=== PATIENT | male | born 1960 | race Caucasian/White ===

== ENCOUNTER 2017-01-18 19:33 | Inpatient (IN) | payer OTHER ==
[~2017-01-18] VITALS: Ht 172.7 cm; Wt 89.9 kg
[2017-01-18 21:30] VITALS: BP 163/99; PULSE 87; TEMP 37.2; O2SAT 90; Ht 172.7 cm; Wt 89.9 kg
[2017-01-18] MEDS ORDERED: ACETAMINOPHEN 325 MG TAB PO PRN (22:00)
[2017-01-18] MEDS ORDERED: ONDANSETRON INJ 2 MG/ML 2 ML VIAL IV PRN (22:00)
[2017-01-18] MEDS: NSS + 20MEQ KCL 1000ML 1,000 ML IV SCH (22:38)
[2017-01-18] MEDS ORDERED: NTRGSL/4 UT (22:46)
[2017-01-18] MEDS ORDERED: MOML PO (22:46)
[2017-01-18] MEDS ORDERED: SODI1ENE RE (22:46)
[2017-01-18] MEDS ORDERED: BISA-16 RE (22:46)
[2017-01-18] MEDS ORDERED: LORA-741 PO (22:46)
[2017-01-18] MEDS ORDERED: TRAZ50TA35 PO ×2 (22:46→22:59)
[2017-01-18] MEDS ORDERED: METO25TA56 PO (22:59)
[2017-01-18] MEDS ORDERED: CLON0.2T PO (22:59)
[2017-01-18] MEDS ORDERED: LEVE500T13 PO (22:59)
[2017-01-18] MEDS ORDERED: MELA1TAB5 PO (22:59)
[2017-01-18] MEDS ORDERED: CHOL1000 PO (22:59)
[2017-01-18] MEDS ORDERED: VNTHFA/IN INH (22:59)
[2017-01-18] MEDS ORDERED: DILT-115 PO (22:59)
[2017-01-18] MEDS ORDERED: LEVO1TAB33 PO (22:59)
[2017-01-18] MEDS ORDERED: DLN100 PO (22:59)
[2017-01-18] MEDS ORDERED: OXYC-57 PO ×2 (22:59)
[2017-01-18] MEDS ORDERED: ZONI100C39 PO (22:59)
[2017-01-18] MEDS ORDERED: NAPR1TAB9 PO (22:59)
[2017-01-18] MEDS ORDERED: GABA-113 PO (22:59)
[2017-01-18] MEDS ORDERED: CITA20TA9 PO (22:59)
[2017-01-18] MEDS ORDERED: DOCU-94 PO (22:59)
[2017-01-18 23:00] VITALS: BP 175/95; PULSE 103; TEMP 37.1; O2SAT 93
[2017-01-18] MEDS ORDERED: ARIP20TA4 PO (23:05)
[2017-01-18] MEDS ORDERED: ASPI81TA28 PO (23:05)
[2017-01-18] MEDS ORDERED: PRLSR20 PO (23:05)
[2017-01-18] MEDS ORDERED: CYNI1000 IM (23:05)
[2017-01-18] MEDS ORDERED: FNTTP50 TD (23:05)
[2017-01-18] MEDS ORDERED: LORAZEPAM 0.5 MG TAB PO PRN (23:15)
[2017-01-18] MEDS ORDERED: TRAZODONE HCL 50 MG TAB PO PRN (23:15)
[2017-01-18] MEDS ORDERED: NITROGLYCERIN 0.4 MG SL PER TAB CHARGE UT SCH (23:15)
[2017-01-18] MEDS ORDERED: OXYCODONE/ACETAMINOPHEN 5-325 TAB PO PRN (23:15)
[2017-01-18] MEDS ORDERED: PHN/100 PO (23:33)
[2017-01-18] MEDS ORDERED: DILT240C57 PO (23:33)
[2017-01-18] MEDS ORDERED: ARIP2TAB3 PO (23:33)
[2017-01-18] MEDS ORDERED: CITA10TA8 PO (23:33)
--- NOTE | 2017-01-18 23:47 | HISTORY & PHYSICAL EXAMINATION ---
DATE OF ADMISSION: 01/18/2017 PRIMARY CARE PHYSICIAN: Dr. Vee Washington from [place]. CHIEF COMPLAINT: Decreased food intake, weakness with chest pain 2 days ago and increased troponin found today. HISTORY OF PRESENT COMPLAINT: He is a 56-year-old male with significant past medical history including seizure disorder, history of multiinfarct dementia and almost bedbound, diabetes, depression with chronic back pain.He resides in [facility] [place]. The history was taken from the daughter and to some extent from the patient himself. Two weeks ago, the patient has had speech garbled and that has been worsening. He was noted to have decreased saturation with shortness of breath and chest x-ray did show pneumonia about 1 week ago, and he has been on Levaquin for the pneumonia. For the last 1 or 2 days, he has been declining food and also complained of some chest pain about 2 days ago, and at the same time, he was noted to have more shortness of breath and his pulse ox went down as well, but that came up to normal with oxygen administration. This morning, he was not eating at all and looked very lethargic from that point. The daughter was called and she advised the patient should be transferred to [facility]. At [place] [facility], he was hemodynamically stable. Apparent test including chest x-ray, CT scan, blood test and EKG came out to be fairly unremarkable, but he was noted to have a very high level of troponin of more than 3. From that point, the ER physician did talk to the organic extractions technician transportation driver at [facility] and advised to be transferred to [facility] for continuation of care. The patient can communicate in a very limited way. He denies to have any chest pain, shortness of breath, palpitation in the telemetry unit. He does not have any abdominal pain, nausea or vomiting. He did not have any cough or phlegm or shortness of breath, and he does have dysarthria which has been worsening, but did not have any numbness or tingling involving any of the extremities. PAST MEDICAL HISTORY: Significant for multiinfarct dementia, history of duodenal ulcer with bleeding, chronic kidney disease, ambulatory dysfunction secondary to multiinfarct, epilepsy, hypertension, depression, type 2 diabetes, dysarthria following cerebrovascular disease and low back pain. PAST SURGICAL HISTORY: Significant for benign brain tumor removal in [place] in 2007 which was complicated by postoperative multiinfarct stroke and also back surgery. FAMILY HISTORY: Father and mother had ischemic heart disease and brother has diabetes. SOCIAL HISTORY: He is . He has been living in [facility] for the last 2 years. He does not smoke, but chews tobacco. He never used any alcohol. His activities of daily living is limited. He needs help with daily activities. He uses a wheelchair to move around. He needs assistance in feeding, but he can eat regular food without any problem with swallowing. ALLERGIES: Nothing noted in the chart. MEDICATIONS: In the care home, he was on nitroglycerin as directed, albuterol via nebulized solution every 4 hours as needed, bisacodyl as directed, levofloxacin 500 mg daily, melatonin 3 mg at night, docusate 100 mg daily, phenytoin 100 mg 3 times daily, trazodone 25 mg 3 times daily, gabapentin 600 mg 3 times daily, Zonisamide 100 mg twice daily, citalopram 30 mg daily, clonidine 0.2 mg twice daily, naproxen 800 mg 3 times daily as needed, acetaminophen/oxycodone 325/5 one tablet 3 times daily as needed, omeprazole 20 mg daily, cyanocobalamin 1000 mg monthly injection, magnesium hydroxide 30 mL as needed for constipation, donepezil 10 mg at night, lorazepam 0.5 mg at bedtime, diltiazem CD 240 mg daily, metoprolol 25 mg twice daily, cholecalciferol 5000 units daily, levetiracetam 500 mg 2 tablets twice daily, bupropion 100 mg twice daily, aripiprazole 2 mg tablet daily, aspirin 81 mg daily, Fentanyl 50 mcg patch every 3 days. REVIEW OF SYSTEMS: Not obtainable. PHYSICAL EXAMINATION: GENERAL: On examination in the telemetry unit, he is not having any acute distress. VITAL SIGNS: Temperature 37.2, pulse was 87, blood pressure 163/99, saturations 90% on 2 liters nasal cannula. HEENT: Unremarkable. NECK: Supple. No JVD, no bruit. CHEST: Clear to auscultate bilaterally. HEART: S1, S2 regular with a 2/6 systolic murmur over precordium. ABDOMEN: Soft, benign, nontender, no organomegaly. Bowel sounds present. EXTREMITIES: No edema. MUSCULOSKELETAL: No acute arthritis. CENTRAL NERVOUS SYSTEM: He was alert and awake and dysarthric, poor in communication. He does have weakness in all 4 limbs, more on the right side than the left. Difficult to get any sensory impairment. LABORATORY DATA: Noted from [facility]; EKG was in sinus rhythm, rate of 83 per minute, normal axis and no significant ST-T wave changes. Chest x-ray mild cardiomegaly, but no other significant finding. CT of the head did show extensive bilateral encephalomalacia and chronic changes but nothing acute. CBC: White count was 6.04, H&H 10.9/33.8, platelet was 133. Electrolytes: Sodium 143, potassium 4.4, chloride 108, carbon dioxide 26, BUN was 36 with creatinine of 1.64, calcium 8.9, alkaline phosphatase 132. AST, ALT 30 and 39. Troponin I was 3.490. PT, INR, PTT could not be found. UA examination unremarkable. IMPRESSION AND PLAN: 1. Very high troponin. The patient has had chest pain about 2 days ago. Does not have any EKG changes, and he is not having any acute symptoms at this time. The patient received aspirin and Plavix. We will not start any heparin as of now. We will get serial cardiac enzymes and echocardiogram and cardiology evaluation in the morning for further management. 2. Multi-infarct dementia. The condition remains stable at this time. Continue with his chronic medication.Will need PT/OT 3. History of multiple strokes. He has been almost bedbound. No acute findings on CAT scan during this admission. We will continue to monitor the patient and get PT, OT evaluation while in the hospital. 4. Seizure disorder secondary to brain surgery and multiple infarct, has been on anti-seizure medication. We will continue with those while in the hospital and get the levels in the morning. 5. Diabetes type 2. Seems to be diet controlled. We will put him on diabetic diet and put him on sliding scale coverage while in the hospital. 6. Depression and anxiety. Has been on multiple medications. We will continue with those. 7. Chronic back pain status post back surgery in the past. He has been on oxycodone and Fentanyl. We will limit the doses and continue with Fentanyl right now and holding oxycodone for the time being. 8. Gastrointestinal prophylaxis with Protonix. 9. Deep venous thrombosis prophylaxis with subcutaneous heparin. 10. Code status. Discussed with the POA, the daughter. He will be a DNR. In my clinical assessment, the beneficiary meets criteria as per CMS for 2 midnight stay in the hospital. ELAN
[2017-01-18] MEDS ORDERED: LORAZEPAM 0.5 MG TAB ONE (23:56)
[2017-01-19] VITALS (12 sets, daily range): BP systolic 121–164; BP diastolic 80–98; PULSE 83–114; TEMP 37.2–37.6; O2SAT 83–98
[2017-01-19] MEDS ORDERED: ALBUTEROL HFA 8 GM INHALER INH SCH
[2017-01-19] MEDS ORDERED: ALBINS/ INH ×2 (00:06)
[2017-01-19] MEDS: CHECK FENTANYL PATCH PLACEMENT SCH ×3 (00:06→16:00)
[2017-01-19] MEDS ORDERED: LORAZEPAM 2 MG/ML 1 ML VIAL IV STA (00:24)
[2017-01-19] MEDS: FENTANYL PATCH REMOVE & WASTE SCH (00:41)
[2017-01-19] MEDS: FENTANYL 50 MCG/HR TDSY TD SCH (00:41)
[2017-01-19] MEDS: HEPARIN SOD 5000 UNIT/0.5 ML CARP SQ SCH ×3 (00:43→17:54)
[2017-01-19] MEDS ORDERED: METRONIDAZOLE / NSS 500 MG in PREMIXED NSS 100 ML IV STA (01:18)
[2017-01-19 03:59] LABS: HEMATOCRIT 33.9 % (42-52); MEAN CELL VOLUME 84.1 fL (80-100); MEAN CORPUSCULAR HEMOGLOBIN 27.3 pg (25-34); MEAN CORPUSCULAR HGB CONC 32.4 g/dl (32-36); MEAN PLATELET VOLUME 11.1 fL (7.4-10.4); PLATELET COUNT 144 K/uL (130-400); RED BLOOD COUNT 4.03 M/uL (4.7-6.1); WHITE BLOOD COUNT 11.29 K/uL (4.8-10.8)
[2017-01-19 04:25] LABS: CKMB/CK RATIO 3.1 (0-3.0)
[2017-01-19 04:31] LABS: INR 1.1 (0.9-1.1); PARTIAL THROMBOPLASTIN RATIO 2.1; PROTHROMBIN TIME (PATIENT) 11.4 SECONDS (9.0-12.0)
[2017-01-19] MEDS: GABAPENTIN 300 MG CAP PO SCH ×3 (06:22→21:33)
[2017-01-19] MEDS: PHENYTOIN SODIUM ER 100 MG CAP PO SCH ×3 (06:22→21:33)
[2017-01-19] MEDS: TRAZODONE HCL 50 MG TAB PO SCH ×3 (06:23→21:34)
--- NOTE | 2017-01-19 06:49 | Clinical Documentation Query ---
Dr. SILVA LISS : CLINICAL DOCUMENTATION QUERIES QUERY 1 OF 3 Patient is a 56 year old male admitted for evaluation of decreased food intake, weakness, chest pain 2 days prior, and troponinemia. Serum troponin on admission 3.110 ng/ml. EKG demonstrated ST. He is being treated with ASA and Lopressor, monitored on telemetry, with echocardiogram and cardiology consultation pending. Documentation includes "very high troponin". As stated, this is not amenable to coding. As appropriate, consider clarification as suggested below. In your clinical opinion is this patient being managed for: ( ) (Possible/Suspected) Non-ST elevation (NSTEMI) myocardial infarction ( ) Other explanation of clinical findings (Please Explain) ( ) Unable to determine (Please Define) ( ) Need to Discuss ( x ) Not Agree NONSPECIFIC ELEVATION OF TROPONIN, CAUSE UNCERTAIN The medical record reflects the following clinical findings, treatment, and risk factors. Clinical Indicators: As above Treatment: He is being treated with ASA and Lopressor, monitored on telemetry, with echocardiogram and cardiology consultation pending. Risk Factors: Age, DM, hypertension, inactivity, gender QUERY 2 OF 3 H&P notes that patient has been on Levaquin for pneumonia for approximately the past week. He was reportedly SOB and hypoxemic prior to presentation. He's currently being treated with Ciprofloxacin for an unspecified infectious process. As appropriate, consider documentation as suggested below in order to capture the acuity of this diagnosis. Thank you. In your clinical opinion is this patient being managed for: ( X ) Pneumonia (POSSIBLE) ( ) Other bacterial infection, specified ( ) Other explanation of clinical findings (Please Explain) ( ) Unable to determine (Please Define) ( ) Need to Discuss ( ) Not Agree The medical record reflects the following clinical findings, treatment, and risk factors. Clinical Indicators: As above Treatment:Ciprofloxacin Risk Factors: Bed bound status, multiinfarct dementia QUERY 3 OF 3 Documentation includes CKD, not otherwise specified. Estimated GFR unavailable to this reader. As able, please specify the appropriate stage of CKD in your patient. Thank you. In your clinical opinion is this patient being managed for: ( ) Chronic kidney disease, stage __ ( ) Other explanation of clinical findings (Please Explain) ( x ) Unable to determine (Please Define) DATA NOT AVAILABLE ( ) Need to Discuss ( ) Not Agree The medical record reflects the following clinical findings, treatment, and risk factors. Clinical Indicators: As above Treatment: Serial chemistries Risk Factors: Age, hypertension, DM, medications. Please clarify and document your clinical opinion in the progress notes and discharge summary. Terms such as "probable", "suspected", "likely", "questionable", "possible", or "still to be ruled out" are acceptable. IF IN AGREEMENT, YOU MUST DOCUMENT ABOVE DIAGNOSTIC STATEMENT IN DAILY PROGRESS NOTES AND DISCHARGE SUMMARY. This document is not part of the patient's record. Thank You, Edmond Bustos, RN [phone]
[2017-01-19] MEDS: ASPIRIN 81 MG ECTAB PO SCH (07:53)
[2017-01-19] MEDS: CHOLECALCIFEROL 1000 INTER.UNIT TAB PO SCH (07:54)
[2017-01-19] MEDS: ZONISAMIDE 100 MG CAP PO SCH ×2 (07:54→21:34)
[2017-01-19] MEDS: CLONIDINE HCL 0.1 MG TAB PO SCH ×2 (07:55→21:34)
[2017-01-19] MEDS: ARIPIprazole 1 MG/ML ORAL SOLN 150 ML BTL PO SCH (07:55)
[2017-01-19] MEDS: LEVETIRACETAM 500 MG TAB PO SCH ×2 (07:55→21:33)
[2017-01-19] MEDS: DILTIAZEM HCL 240 MG CAPCR PO SCH ×2 (07:56→21:33)
[2017-01-19] MEDS: CITALOPRAM 20 MG TAB PO SCH (07:57)
[2017-01-19] MEDS ORDERED: METRONIDAZOLE / NSS 500 MG in PREMIXED NSS 100 ML IV SCH (08:00)
[2017-01-19] MEDS ORDERED: BISACODYL 5 MG TABEC PO PRN (09:00)
[2017-01-19] MEDS ORDERED: CIPROFLOXACIN / D5W 400 MG in PREMIXED IN D5W 200 ML IV SCH (09:00)
[2017-01-19] MEDS ORDERED: METOPROLOL TARTRATE 25 MG TAB PO SCH (09:00)
[2017-01-19] MEDS ORDERED: CHOLECALCIFEROL 1000 INTER.UNIT TAB PO SCH (09:00)
[2017-01-19] MEDS ORDERED: ARIPIprazole TAB 10 MG TAB PO SCH (09:00)
[2017-01-19] MEDS ORDERED: MAGNESIUM HYDROXIDE SUSP 30 ML UDC PO PRN (09:00)
[2017-01-19] MEDS ORDERED: SOD PHOSPHATE/SOD BIPHOSPHATE ENEMA 132 ML BTL PR PRN (09:00)
--- NOTE | 2017-01-19 09:26 | ECHOCARDIOGRAM REPORT ---
*NOTICE TO RECEIVING LIBERTARIAN AGENCY This information is strictly Confidential and protected under [place] law. [place] law prohibits you from making any further disclosure of this information unless further disclosure is expressly permitted by the written consent of the person to whom it pertains or is authorized by law. A general authorization for the release of medical or other information is not sufficient for this purpose. Hospital accepts no responsibility if the information is made available to any other person, INCLUDING THE PATIENT. Interpretation Summary * Patient very agitated and thrashing, trying to get out of bed, yelling and IV did not work for Definity * Name: CLAUDE SANTANA Study Date: 01/19/2017 06:22 AM BP: 164/98 mmHg * Patient Location: [facility]\S\S230\S\1 HR: 110 * : 1960 (M/d/yyyy) Gender: Male Height: 68 in * Age: 56 yrs Ethnicity: CA Weight: 202 lb * Ordering Physician: Meet Calixto * Referring Physician: YUE * Performed By: Elizabeth Dhillon RDCS * * Reason For Study: CHEST PAIN * BSA: 2.1 m2 * The study was technically adequate. * -- Conclusions -- * Sinus tachycardia was present during the echocardiogram study. * No regional wall motion abnormalities noted. * Left ventricular systolic function is normal. * Ejection Fraction = 55-60%. * There is mild concentric left ventricular hypertrophy. * The left atrium is mildly dilated. * There is mild mitral annular calcification. * There is mild mitral regurgitation. * Significant tricuspid regurgitation is absent. * Doppler findings do not suggest pulmonary hypertension. Procedure Details * A complete two-dimensional transthoracic echocardiogram was performed (2D, M-mode, Doppler and color flow Doppler). Left Ventricle * The left ventricle is normal in size. * There is no LV mural thrombus. * There is mild concentric left ventricular hypertrophy. * Ejection Fraction = 55-60%. * Left ventricular systolic function is normal. * The left ventricular wall motion is normal. * No regional wall motion abnormalities noted. Right Ventricle * The right ventricle is normal size. * The right ventricular systolic function is normal as assessed by tricuspid annular plane systolic excursion (TAPSE) (normal >1.5 cm). Atria * The left atrium is mildly dilated. * Right atrial size is normal. * There is no evidence of atrial septal defect, but resolution does not allow assessment for a patent foramen ovale. Mitral Valve * There is mild mitral annular calcification. * There is no mitral valve stenosis. * There is mild mitral regurgitation. Tricuspid Valve * The tricuspid valve is normal. * There is no tricuspid stenosis. * Significant tricuspid regurgitation is absent. * Doppler findings do not suggest pulmonary hypertension. Aortic Valve * The aortic valve is not well visualized. * The Doppler evaluation is technically adequate. * Aortic stenosis is absent. * There is no significant aortic regurgitation. Pulmonic Valve * The pulmonary valve is not well seen, but the Doppler examination is normal without significant regurgitation or stenosis. Great Vessels * The aortic root and proximal ascending aorta are normal sized. Pericardium/Pleural * There is no pericardial effusion. Great Vessels * Normal inferior vena cava diameter and respiratory variation suggests normal central venous pressure. Left Ventricular Diastolic Function * Grade I diastolic dysfunction, (abnormal relaxation pattern). MMode 2D Measurements and Calculations IVSd 1.3 cm IVSs 2.3 cm LVIDd 6.6 cm LVIDs 4.4 cm LVPWd 1.2 cm LVPWs 1.4 cm IVS/LVPW 1.0 FS 33.7 % EDV(Teich) 223.2 ml ESV(Teich) 86.3 ml EF(Teich) 61.4 % EDV(cubed) 286.8 ml ESV(cubed) 83.4 ml EF(cubed) 70.9 % % IVS thick 87.2 % % LVPW thick 11.9 % LV mass(C)d 381.7 grams LV mass(C)dI 185.9 grams/m\S\2 LV mass(C)s 369.9 grams LV mass(C)sI 180.2 grams/m\S\2 SV(Teich) 136.9 ml SI(Teich) 66.7 ml/m\S\2 SV(cubed) 203.4 ml SI(cubed) 99.1 ml/m\S\2 Ao root diam 3.8 cm Ao root area 11.2 cm\S\2 LA dimension 4.8 cm LA/Ao 1.3 LVAd ap4 46.8 cm\S\2 LVLd ap4 9.9 cm EDV(MOD-sp4) 182.0 ml LVAs ap4 27.4 cm\S\2 LVLs ap4 8.2 cm ESV(MOD-sp4) 78.8 ml EF(MOD-sp4) 56.7 % LVAd ap2 45.4 cm\S\2 LVLd ap2 10.0 cm EDV(MOD-sp2) 176.0 ml LVAs ap2 24.4 cm\S\2 LVLs ap2 7.9 cm ESV(MOD-sp2) 66.8 ml EF(MOD-sp2) 62.0 % SV(MOD-sp4) 103.2 ml SI(MOD-sp4) 50.3 ml/m\S\2 SV(MOD-sp2) 109.2 ml SI(MOD-sp2) 53.2 ml/m\S\2 Doppler Measurements and Calculations Ao V2 max 196.2 cm/sec Ao max PG 15.4 mmHg Ao max PG (full) 10.1 mmHg LV V1 max PG 5.3 mmHg LV V1 max 115.0 cm/sec TR max geno 323.9 cm/sec
--- NOTE | 2017-01-19 11:02 | Cardiology Consultation ---
Cardiology Consultation Date of Consultation: Jan 19, 2017 History of Present Illness Patient is a 56 year old male seen in cardiology consultation per the request of Dr. Calixto for evaluation of elevated troponin level. The patient has not previously been admitted to this institution, his history is obtained based on my conversation with the referring emergency room physician last evening and from review of his emergency department and limited [facility] records as the patient is unable to provide helpful history. The patient apparently resides in a senior care setting history of multi- infarct dementia and has cognitive impairment. The senior care staff had noted generalized symptoms of failure to thrive recently with decreased food intake, generalized weakness, and therefore he was referred to the emergency department at [facility]. On arrival there he was noted to have a mild sinus tachycardia. He had no complaints and continues to deny any pains including no chest pain. In evaluation took place included a CT scan that per the outside radiology report revealed areas of chronic bilateral encephalomalacia consistent with history of past strokes, no acute findings. Chest x-ray suggested interstitial edema but no focal infiltrate. It is noted that the patient had recently been receiving outpatient antibiotics at the senior care for presumed pneumonia. On blood work performed in the emergency room his found to have an elevated troponin of 3 MG per mL. EKG revealed sinus rhythm with no significant ST changes. He was received here by [facility] for transfer to a higher level of care for cardiology consultation because that was not available at [facility]. He has since had a repeat troponin that was mildly elevated at 3.49 MG per mL. Telemetry reveals sinus rhythm and mild sinus tachycardia in the 110-120 beat per minute range. An echocardiogram was performed today, study was technically adequate although the images were difficult to obtain because the patient was restless and combative with the avionics technician. Sinus tachycardia in the 110-120 beat per minute range was noted during the test. The left ventricular wall motion was normal with no regional wall motion abnormalities. The left ventricular ejection fraction was normal with a qualitative ejection fraction of 55-60%. Mild concentric left ventricular hypertrophy was noted with mild mitral annular calcification, mild mitral regurgitation, and mild left atrial enlargement. There are no prior echocardiograms available for review. EKG performed on 01/19/2017 at 2:06 AM on arrival to the telemetry floor at this institution revealed sinus tachycardia [address] abnormality and no definite signs of ischemia. EKG was unchanged compared to that reviewed from the emergency room records. History Past Medical History: 1. Seizure disorder 2. History of multi-infarct dementia with cognitive impairment, requires [facility] care, and is mostly bedbound 3. History of duodenal ulcer with bleeding 4. History of chronic kidney disease 5. Inventory dysfunction 6. Hypertension 7. Type 2 diabetes mellitus Past Surgical History: Per chart review surgical history is relevant for removal of a benign brain tumor in [place] in 2007 was contacted by postoperative stroke Social History: Patient is He lives at the [facility] Family History: Review Of Systems Echo (review of systems is unobtainable due to the patient's poor baseline mental status Allergies Coded Allergies: Morphine (Unverified Allergy, Unknown, UNKOWN , 01/18/17) UNABLE TO INTERVIEW PT, INFORMATION FROM [facility] Medications Reported Home Medications Medications Dose Route/Sig Max Daily Dose Days Date Category Dose Instructions Proventil 0.083% 2.5MG/3ML (Albuterol Sulf) 2.5 Mg/3 Ml Nebu 2.5 Mg INH UD 01/19/17 Reported Proventil 0.083% 2.5MG/3ML (Albuterol Sulf) 2.5 Mg/3 Ml Nebu 2.5 Mg INH Q4 01/19/17 Reported Abilify (Aripiprazole) 2 Mg Tab 2 Mg PO DAILY 01/18/17 Reported Cardizem Cd (Diltiazem Hcl Coated Beads) 240 Mg Cap 240 Mg PO BID 01/18/17 Reported Celexa (Citalopram Hydrobromide) 10 Mg Tab 30 Mg PO QAM 01/18/17 Reported Dilantin (Phenytoin Sodium) 100 Mg Cap 100 Mg PO TID 01/18/17 Reported Duragesic (Fentanyl) 50 Mcg Tdsy 50 Mcg TD [id number] 01/18/17 Reported Aspirin Ec (Aspirin) 81 Mg Tab 81 Mg PO DAILY 01/18/17 Reported Prilosec (Omeprazole) 20 Mg Capcr 20 Mg PO PM 01/18/17 Reported Cyanocobalamin 1,000 Mcg/Ml Inj 1,000 Mcg IM MONTHLY 01/18/17 Reported Aleve (Naproxen) 220 Mg Tab 800 Mg PO TID 01/18/17 Reported Percocet 5MG/325MG (Oxycodone/Acetaminophen) Tab 1 Tablet PO TID PRN 01/18/17 Reported PAIN Keppra (Levetiracetam) 500 Mg Tab 500 Mg PO BID 01/18/17 Reported Catapres (Clonidine Hcl) 0.2 Mg Tab 0.2 Mg PO Q12 01/18/17 Reported Vitamin D3 (Cholecalciferol) 1,000 Unit Tab 5,000 Unit PO QAM 90 01/18/17 Reported Colace (Docusate Sodium) 100 Mg Cap 1 Cap PO HS 15 01/18/17 Reported Trazodone (Trazodone HCl) 50 Mg Tab 25 Mg PO Q8 01/18/17 Reported Neurontin (Gabapentin) 300 Mg Cap 600 Mg PO Q8 01/18/17 Reported Zonegran (Zonisamide) 100 Mg Cap 100 Mg PO BID 01/18/17 Reported Lopressor (Metoprolol Tartrate) 25 Mg Tab 25 Mg PO Q12 01/18/17 Reported Levaquin (Levofloxacin) 500 Mg Tab 500 Mg PO DAILY 10 01/18/17 Reported Kp Melatonin (Melatonin) 3 Mg Tab 1 Tab PO HS 30 01/18/17 Reported Ativan (Lorazepam) 0.5 Mg Tab 0.25 Mg PO HS PRN 01/18/17 Reported Fleet Enema Six Pack (Sodium Phosphates) 1 Shanna Shanna 1 Dose RE UD 01/18/17 Reported ONE DOSE RECTALLY NEEDED NO RESULTS ON 3RD SHIFT EXCEPT FOR A DIALYSIS RESIDENT OF RESIDENT WITH ESRD Dulcolax (Bisacodyl) 5 Mg Tab 10 Mg RE UD 1 01/18/17 Reported INSERT SUPPOSITORY RECTALLY, NO RESULTS ON 2ND SHIFT Milk Of Magnesia (Magnesium Hydroxide) 30 Ml Susp 30 Ml PO DAILY 01/18/17 Reported TAKE 30ML BY MOUTH 1ST SHIFT IF NO RESULTS EXCEPT FOR A DIALYSIS RESIDENT OR RESIDENT WITH ESRD Nitrostat (Nitroglycerin) 0.4 Mg Tab 0.4 Mg UT PRN 01/18/17 Reported TAKE 0.4MG SL PRN FOR CHEST PAIN, ONE TABLET EVERY FIVE MINUTES FOR THREE DOSES IF INEFFECTIVE FOR CHEST PAIN, CALL MD Physical Exam Vital Signs (Last 8hrs): Last 8 Hrs Date Time Temp Pulse Resp B/P (MAP) Pulse Ox O2 Delivery O2 Flow Rate FiO2 01/19/17 08:00 Nasal Cannula 3.0 01/19/17 04:00 Nasal Cannula 3.0 01/19/17 03:44 37.6 110 23 164/98 (120) 91 Nasal Cannula 3.0 General Appearance: Awake, unable to determine if the patient's oriented to place, minimally conversant Head: Normocephalic Atraumatic. Eyes: PERRLA, EOMI, conjunctiva and sclera clear Neck: Supple. No carotid bruits noted. No JVD. No HJD. Respiratory: Breath sounds clear to auscultation bilaterally. No w/r/r. Cardiovascular: Reg rate and rhythm. S1 and S2 noted. No murmurs, rubs, gallops. PMI non displace. Abdomen: Normal bowel sounds, soft nontender. no abdominal bruits. Extremities: No edema, no clubbing or cyanosis. distal pulses 2/4 bilaterally. . Data Last Resulted 01/19/17 03:39 Past 24 Hours Test 01/19/17 03:39 01/19/17 10:04 Range/Units Creatine Kinase MB 2.7 0.5-3.6 ng/ml Creatine Kinase MB Ratio 3.1 H 0-3.0 Prothromb Time International Ratio 1.1 0.9-1.1 Prothrombin Time 11.4 9.0-12.0 SECONDS Total Creatine Kinase 87 39-308 U/L Troponin I 3.110 *H 0-0.045 ng/ml Chest x-ray, CT, and echocardiogram results are summarized in history of present illness Assessment & Plan Impression: 56-year-old male with recent symptoms of failure to thrive, his baseline cognitive impairment and has had a apparent subacute worsening over the last 2 weeks and then worse over the last 3 days, he was treated with Levaquin a week ago for pneumonia, and emergency department evaluation yesterday was found to have a mildly elevated troponin I. Recommendations: His cardiac evaluation is relatively normal with the exception of mild sinus tachycardia. His blood pressure is elevated most recent reading of 164/98. It appears he is on low-dose aspirin at baseline as well as metoprolol tartrate 25 mg twice a day. Clopidogrel was added in the emergency department yesterday. He does have an apparent history of gastrointestinal bleed in the past. Other relevant outpatient cardiac medications include diltiazem 240 mg by mouth twice a day, and clonidine so I would assume he does have underlying significant hypertension. He is not on a statin apparently at baseline despite his stroke history. I do not have a good history of what the underlying etiology for strokes was. Echocardiogram reveals no regional wall motion abnormalities suggestive of recent infarct, and he is no evidence of cardiomyopathy. At this point, his troponin is definitely a marker of myocardial necrosis, but I do not have definite evidence that this is due to an acute coronary thrombosis. The patient provides no history to suggest anginal symptoms. At this time, I recommend continued conservative therapy. Aspirin and clopidogrel will be continued, which very well may be indicated from a neurologic standpoint given his history of strokes in the past also. I'm going to increase his metoprolol dose to 50 mg twice a day. I recommend adding atorvastatin. Continue prior to hospital dose of diltiazem and clonidine. Given the patient's difficulty from a mental status standpoint, he had trouble tolerating staying still long enough just to have the transthoracic echocardiogram done, I do not think he is a candidate for invasive cardiac catheterization, but I think it is indicated in his case. I have attempted to call his power of personal injury attorney is his daughter, Dalila by telephone but was not able to connect with her, I will hopefully connect with her when she rests the hospital today. Manuel Watson DO, FACC, FACOI Associate Zipper Sewing Machine Operator [facility] [place]
[2017-01-19] MEDS ORDERED: ATORVASTATIN 20 MG TAB PO ONE (11:03)
[2017-01-19] MEDS ORDERED: METOPROLOL TARTRATE 25 MG TAB PO ONE (11:15)
[2017-01-19 11:18] LABS: CKMB/CK RATIO 3.1 (0-3.0)
[2017-01-19] MEDS: CLOPIDOGREL BISULFATE 75 MG TAB PO SCH (11:37)
[2017-01-19] MEDS: NSS + 20MEQ KCL 1000ML 1,000 ML IV SCH (11:38)
[2017-01-19] MEDS ORDERED: LORAZEPAM 2 MG/ML 1 ML VIAL ONE (12:55)
[2017-01-19] MEDS ORDERED: LORAZEPAM INJ 0.25 MG in SYRINGE 0.25 ML IV ONE (13:00)
[2017-01-19] MEDS ORDERED: LEVALBUTEROL/IPRATROPIUM NEB INH STA (13:07)
--- NOTE | 2017-01-19 13:11 | DIAGNOSTIC IMAGING REPORT ---
CHEST ONE VIEW PORTABLE HISTORY: hypoxia COMPARISON: None. FINDINGS: The heart is mildly enlarged. No pleural effusions. No pneumothorax. Near diffuse bilateral perihilar patchy airspace opacities. These demonstrate a predominantly perihilar location. There is mild interstitial and vascular thickening. IMPRESSION: Bilateral patchy airspace opacities with mild cardiomegaly. This favors pulmonary edema. However, pneumonia could also have a similar appearance. Electronically signed by: Sharan Rapp M.D. 01/19/2017 1:09 PM Dictated Date/Time: 01/19/2017 1:08 PM
[2017-01-19] MEDS ORDERED: LEVALBUTEROL 1.25MG/0.5ML NEB INH ONE (13:30)
[2017-01-19] MEDS ORDERED: IPRATROPIUM BROMIDE NEB SOLN 0.02% 2.5 ML VIAL INH ONE (13:30)
[2017-01-19] MEDS ORDERED: FUROSEMIDE INJ 40 MG in SYRINGE 0 ML IV ONE (14:00)
[2017-01-19 14:56] LABS: MEAN CORPUSCULAR HEMOGLOBIN 28.5 pg (25-34); MEAN PLATELET VOLUME 11.2 fL (7.4-10.4); PLATELET COUNT 161 K/uL (130-400); RED BLOOD COUNT 3.69 M/uL (4.7-6.1); WHITE BLOOD COUNT 9.27 K/uL (4.8-10.8)
[2017-01-19 15:06] LABS: MEAN CORPUSCULAR HGB CONC 33.9 g/dl (32-36)
[2017-01-19 15:11] LABS: INR 1.1 (0.9-1.1); PARTIAL THROMBOPLASTIN RATIO 2.1; PROTHROMBIN TIME (PATIENT) 11.4 SECONDS (9.0-12.0)
[2017-01-19 15:23] LABS: BUN/CREATININE RATIO 17.3 (10-20); CALCIUM 8.4 mg/dl (8.5-10.1); CKMB/CK RATIO 2.4 (0-3.0); CREATININE 1.5 mg/dl (0.60-1.40); POTASSIUM 4.2 mmol/L (3.5-5.1)
[2017-01-19] MEDS ORDERED: PIPERACILL/TAZOBAC IV 0 GM in DEXTROSE 5% 100ML 100 ML IV SCH (16:30)
[2017-01-19] MEDS ORDERED: LEVALBUTEROL/IPRATROPIUM NEB INH PRN (16:30)
[2017-01-19] MEDS ORDERED: IPRATROPIUM BROMIDE NEB SOLN 0.02% 2.5 ML VIAL INH PRN (16:45)
[2017-01-19] MEDS ORDERED: LEVALBUTEROL 0.63MG/3 ML NEB INH PRN (16:45)
[2017-01-19] MEDS ORDERED: PIPERACILL/TAZOBAC IV 3.375 GM in DEXTROSE 5% 100ML IV ONE (17:00)
[2017-01-19] MEDS ORDERED: METHYLPREDNISOLONE IV 40 MG in SYRINGE 0 ML IV ONE (17:00)
[2017-01-19] MEDS ORDERED: PIPERACILL/TAZOBAC CONSULT ACTIVE PRN (17:00)
[2017-01-19] MEDS ORDERED: LEVOFLOXACIN CONSULT ACTIVE PRN (17:00)
[2017-01-19] MEDS: IPRATROPIUM BROMIDE NEB SOLN 0.02% 2.5 ML VIAL INH SCH (18:50)
[2017-01-19] MEDS: LEVALBUTEROL 1.25MG/0.5ML NEB INH SCH (18:50)
--- NOTE | 2017-01-19 19:04 | PULMONARY CONSULTATION ---
DATE OF CONSULTATION: 01/19/2017 TIME: 6:05 p.m. HISTORY OF PRESENT ILLNESS: The patient was seen in room #204. He is a 56-year-old male who was admitted to the hospital yesterday. He has a history of multiinfarct dementia. Much of this began when he had a brain tumor surgery back in 2007, reportedly for a benign tumor. He had multiple CVAs postoperatively. The patient [place] resides [facility] [place] [place]. For the past 1 month, he has not been doing well. According to his sister, the patient's downhill course all occurred at the time of his father's 1 month ago. Since then, he has been doing poorly. Generally, his appetite has been decreased. His energy level has been decreased. His mental status has declined. The patient has a history of dysarthria, but it has gotten much worse. The patient was sent to the Emergency Room in [place] because of his complaints. He was found to have an elevated troponin level. Because of this, he was referred to [facility]. Today, the patient has had progressively increasing shortness of breath. He had a chest x-ray done today that showed diffuse bilateral patchy airspace opacities. This is compatible with either pulmonary edema or multi-lobe pneumonia. The patient has had severely decreased oxygen saturations. He did not tolerate a nonrebreather mask. He kept taking it off. He now has an OxyMask in place and he is more comfortable with it. The patient did not cough during my exam, but I am told that he coughs sometimes. His family was present. They do not believe that he has any difficulty swallowing and they do not think he has any dysphagia at all. The patient has been restless, but he is a little more restful now than he was a few hours ago. To the best of my knowledge, he has not expectorated any phlegm and he has not expectorated any blood. PAST SURGICAL HISTORY: 1. Back surgery. 2. Neurosurgery for the benign brain tumor noted above. PAST MEDICAL HISTORY: 1. Seizure disorder. 2. Multiinfarct dementia. 3. Hypertension. 4. Diabetes type 2. 5. Depression. 6. Chronic back pain. 7. Duodenal ulcer. 8. Chronic kidney disease. SOCIAL HISTORY: Tobacco - the patient has never smoked, but he has a longstanding history of chewing tobacco; ETOH - never. ALLERGIES: None known allergies. OCCUPATIONAL HISTORY: The patient was a director construction services. FAMILY HISTORY: Both mother and father had ischemic heart disease and brother has diabetes. REVIEW OF SYSTEMS: Very difficult to obtain as the patient has marked dysarthria. The review of systems is negative except as noted above in the HPI. PHYSICAL EXAMINATION: GENERAL: The patient is a 56-year-old male who appears older than his chronologic age. He could speak somewhat but with dysarthria. He did not appear in distress at present. VITAL SIGNS: Temperature recorded at 37.4, axillary. HEENT: His pupils were slightly different size. The right pupil was a bit larger than the left. They do react. The mouth exam showed he has some crowding in the pharynx. I would estimate this to be a Mallampati grade II or III. NECK: Palpation of the neck reveals no lymph nodes. I did not believe his neck veins were distended significantly. HEART: The patient's heart rate is 90 per minute. The rhythm is regular. The blood pressure most recently was 137/88. LUNGS: Lung hair reveal diffuse rales bilaterally. There were mild scattered rhonchi. Oxygen saturation was 97% on 15 liter OxyMask. Respiratory rate currently is 22 breaths per minute. It had been as high as 28 earlier today. ABDOMEN: Soft. Bowel sounds are present. There was no tenderness to palpation or masses. EXTREMITIES: Showed no cyanosis, clubbing or edema. The patient has a little bit of libido on the anterior right leg from a few inches above the knee to a few inches below the knee. The legs felt cool. However, he did have peripheral pulses which were well palpated. LABORATORY DATA: Electrolytes show sodium 140, potassium 4.2, chloride 109, bicarbonate 25. The BUN is 26 with a creatinine of 1.5. Calcium was 8.4. CPK was 101. Troponins were 2.69. BNP was 9520. Troponin earlier today was 3.11. White count is 9.27. Hemoglobin 10.5. Platelets are 161,000. PTT is prolonged at 54.4 despite only having had subQ heparin. D-dimer was 1940. IMPRESSION: 1. Acute respiratory failure with hypoxia. 2. Diffuse bilateral airspace disease - suspect congestive heart failure with an inability to exclude pneumonia. 3. Multiinfarct dementia. COMMENTS: The patient is more comfortable on the OxyMask. He is oxygenating better. The high BNP would be compatible with congestive heart failure. His echo from today did not show any significant findings; however. The possibility exists he does have a multilobar patchy pneumonia as well. Therapeutically, the patient is being treated with some IV steroids in the form of methylprednisolone 20 mg IV q. 8 hours. From an antibiotic perspective, he is on Zosyn and levofloxacin. He is also on respiratory treatments in the form of levalbuterol and ipratropium. Agree with all the above measures. The patient is a DNR and reportedly he does not want BiPAP as well. We will try to oxygenate him with the OxyMask and if is not successful, we could try high-flow nasal oxygen. Will follow the patient with you. I would suggest repeating an x-ray of the chest in the morning tomorrow. Thank you for asking me to assist in his care.
--- NOTE | 2017-01-19 19:05 | DIAGNOSTIC IMAGING REPORT ---
VENOUS DOPPLER LWR EXT BILA HISTORY: Pain. Edema. DVT COMPARISON STUDY: None. FINDINGS: There is normal compressibility, flow, and augmentation within the bilateral lower extremity deep venous systems. IMPRESSION: No DVT within the right or left lower extremity. The above report was generated using voice recognition software. It may contain grammatical, syntax or spelling errors. Electronically signed by: Shawn Chapman M.D. 01/19/2017 7:03 PM Dictated Date/Time: 01/19/2017 7:03 PM
[2017-01-19] MEDS: LEVOFLOXACIN / D5W 750 MG in PREMIXED IN D5W 150 ML IV SCH (19:25)
[2017-01-19] MEDS ORDERED: LEVALBUTEROL/IPRATROPIUM NEB INH SCH (21:00)
--- NOTE | 2017-01-19 21:18 | Progress Note ---
Medicine Progress Note Date & Time of Visit: Jan 19, 2017 at ~ 12:00 . Subjective Long-term resident at [facility]. History history of cerebrovascular disease, status post multiple infarcts with progressive decline. Has chronic dysarthria. Has become less ambulatory and is now bed and wheelchair bound. Diagnosed with pneumonia about a week ago and treated with levofloxacin. Failed to improve and noted to be progressively weaker, so evaluated ED at [facility] yesterday. Transferred to our facility due to elevated troponin. Evaluated by Cardiology this morning. Around noon today became anxious and agitated and was noted to be hypoxic with O2 sats in the low 80s wearing nasal cannula 3 L/m. Patient not able to communicate very well due to his underlying cerebrovascular disease. Denies any chest pain. No apparent aspiration. . Objective Last 8 Hrs Date Time Temp Pulse Resp B/P (MAP) Pulse Ox O2 Delivery O2 Flow Rate FiO2 01/19/17 19:10 37.4 86 16 137/80 (99) 92 Oxymask 12.0 01/19/17 18:50 83 12 94 Diffusion Mask 12.0 01/19/17 16:00 Non-Rebreather 15.0 01/19/17 15:08 37.4 90 22 137/88 (104) 97 Oxymask 15.0 01/19/17 14:40 98 28 137/88 (104) 95 Non-Rebreather 15.0 01/19/17 13:22 92 22 95 Non-Rebreather 15.0 Physical Exam: General- adult male who appears to be chronically and acutely ill Neck- + JVD Lungs- few scattered rhonchi, bibasilar rales, diffuse moderate wheezing Heart- RRR, tachy, no gallop appreciated Abdomen- normal bowel sounds, soft, nontender Extremities- trace pretibial edema Neuro- somnolent, dysarthric . Laboratory Results: Last 24 Hours Test 01/19/17 03:39 01/19/17 06:21 01/19/17 10:04 01/19/17 12:54 White Blood Count 11.29 K/uL Red Blood Count 4.03 M/uL Hemoglobin 11.0 g/dL Hematocrit 33.9 % Mean Corpuscular Volume 84.1 fL Mean Corpuscular Hemoglobin 27.3 pg Mean Corpuscular Hemoglobin Concent 32.4 g/dl RDW Standard Deviation 39.9 fL RDW Coefficient of Variation 13.2 % Platelet Count 144 K/uL Mean Platelet Volume 11.1 fL Prothrombin Time 11.4 SECONDS Prothromb Time International Ratio 1.1 Activated Partial Thromboplast Time 53.3 SECONDS Partial Thromboplastin Ratio 2.1 Total Creatine Kinase 87 U/L 97 U/L Creatine Kinase MB 2.7 ng/ml 3.0 ng/ml Creatine Kinase MB Ratio 3.1 3.1 Troponin I 3.110 ng/ml 2.590 ng/ml Bedside Glucose 124 mg/dl 147 mg/dl Test 01/19/17 14:42 White Blood Count 9.27 K/uL Red Blood Count 3.69 M/uL Hemoglobin 10.5 g/dL Hematocrit 31.0 % Mean Corpuscular Volume 84.0 fL Mean Corpuscular Hemoglobin 28.5 pg Mean Corpuscular Hemoglobin Concent 33.9 g/dl RDW Standard Deviation 40.8 fL RDW Coefficient of Variation 13.4 % Platelet Count 161 K/uL Mean Platelet Volume 11.2 fL Prothrombin Time 11.4 SECONDS Prothromb Time International Ratio 1.1 Activated Partial Thromboplast Time 54.4 SECONDS Partial Thromboplastin Ratio 2.1 D-Dimer 1940 ug/L FEU Sodium Level 140 mmol/L Potassium Level 4.2 mmol/L Chloride Level 109 mmol/L Carbon Dioxide Level 25 mmol/L Anion Gap 6.0 mmol/L Blood Urea Nitrogen 26 mg/dl Creatinine 1.50 mg/dl Est Creatinine Clear Calc Drug Dose 59.4 ml/min Estimated GFR () 59.0 Estimated GFR (Non- 50.9 BUN/Creatinine Ratio 17.3 Random Glucose 115 mg/dl Calcium Level 8.4 mg/dl Total Creatine Kinase 101 U/L Creatine Kinase MB 2.4 ng/ml Creatine Kinase MB Ratio 2.4 Troponin I 2.690 ng/ml Pro-B-Type Natriuretic Peptide 9520 pg/ml Phenytoin (Dilantin) Level 10.0 mcg/mL Diagnostic Imaging: Chest x-ray reviewed and demonstrated pulmonary edema. . Other Studies: Echocardiogram performed this morning showed normal left ventricular systolic function, no wall motion abnormalities, no RV strain. EKG performed at 12:53 reviewed and demonstrated sinus tachycardia 100/minute, LVH, slight ST depression in lateral precordial leads. . Assessment & Plan ACUTE HYPOXIC RESPIRATORY FAILURE Diagnosed with pneumonia about 1 week ago. Started on oxygen a few days ago. Now with worsening oxygenation despite supplemental oxygen. Titrate supplemental oxygen. Specific cardiopulmonary concerns discussed below. ELEVATED TROPONIN Serum troponin remains elevated around 3. Total CPK and CPK-MB normal. Denies chest pain. No wall motion abnormalities on echocardiogram. Seen in consultation by Cardiology. Consider pulmonary embolism as discussed below. PULMONARY EDEMA Chest x-ray today demonstrates pulmonary edema. Echo shows normal LVEF of 55%. IV furosemide ordered. Follow exam, chest films. POSSIBLE PNEUMONIA / POSSIBLE ASPIRATION Diagnosed with pneumonia 1 week ago and treated with levofloxacin. Chest x-ray today shows pulmonary edema, no obvious infiltrates. Treat with broad-spectrum antibiotic therapy with levofloxacin and piperacillin/ tazobactam. MUCK HAULER evaluation for swallowing aspiration risk. ELEVATED D-DIMER At risk for thromboembolic disease due to inactivity/bed rest. Venous duplex ordered by Cardiology- results pending. Serum creatinine 1.5 - 1.6. May be best to avoid CTA due to risk of contrast nephropathy. Patient will not be able to cooperate with VQ scan. Receiving SQ unfractionated heparin with therapeutic PTT. HYPERTENSION Continue metoprolol, diltiazem, clonidine. CKD Stage uncertain. Serum creatinine 1.6 @ [facility] ED day prior to admission. Creatinine today = 1.5. Follow. DM TYPE 2 Reported history of diabetes, but not on any diabetic medications at this time. Follow. CEREBROVASCULAR DISEASE Neuro status apparently at baseline. CT performed yesterday at [facility] showed encephalomalacia, no acute events. SEIZURE DISORDER Phenytoin level 10. CHRONIC PAIN Continue fentanyl patch + Percocet PRN. VTE PROPHYLAXIS SQ heparin. RESUSCITATION STATUS DNR DISPOSITION Expected return to [facility] when medically stable. ADDENDUM: Daughter / PORobert Conner visiting and given update. She is an RN and gave additional background information. Patient reassessed later in the afternoon. Less dyspneic and more comfortable. Code status and ventilatory support discussed later with patient, his daughter, and his sister. He confirmed that code status is DNR. He does not want ventilatory support with BiPAP or ETT/vent, even for short- term support. Pulmonary Medicine consulted to assist with management. . Current Inpatient Medications: Current Inpatient Medications Medications (Trade) Dose Ordered Sig/Rafat Route Start Time Stop Time Status Last Admin Dose Admin Heparin Sodium (Porcine) (Heparin Sq 5000 Unit/0.5ml) 5,000 unit Q8H SQ 01/19/17 00:00 02/18/17 00:00 01/19/17 17:54 5,000 UNIT Potassium Chloride/Sodium Chloride 1,000 ml @ 75 mls/hr [id number] IV 01/18/17 22:00 02/17/17 21:59 Future Hold 01/19/17 11:38 75 MLS/HR Acetaminophen (Tylenol Tab) 650 mg Q4H PRN PO 01/18/17 22:00 02/17/17 21:59 Ondansetron HCl (Zofran Inj) 4 mg Q6H PRN IV 01/18/17 22:00 02/17/17 21:59 Aspirin (Ecotrin Tab) 81 mg DAILY PO 01/19/17 09:00 02/18/17 08:59 01/19/17 07:53 81 MG Bisacodyl (Dulcolax Tab) 10 mg DAILY PRN PO 01/19/17 09:00 02/18/17 08:59 Citalopram Hydrobromide (celeXA TAB) 30 mg DAILY PO 01/19/17 09:00 02/18/17 08:59 01/19/17 07:57 30 MG Diltiazem HCl (Cardizem Cd Cap) 240 mg Q12 PO 01/19/17 09:00 02/18/17 08:59 01/19/17 07:56 240 MG Docusate Sodium (coLACE CAP) 100 mg HS PO 01/19/17 21:00 02/18/17 20:59 Fentanyl (Duragesic Patch) 50 mcg Q72H TD 01/19/17 00:00 02/02/17 00:00 01/19/17 00:41 50 MCG Gabapentin (Neurontin Cap) 600 mg Q8 PO 01/19/17 06:00 02/18/17 05:59 01/19/17 16:59 600 MG Levetiracetam (Keppra Tab) 500 mg BID PO 01/19/17 09:00 02/18/17 08:59 01/19/17 07:55 500 MG Lorazepam (Ativan Tab) 0.25 mg HS PRN PO 01/18/17 23:15 02/17/17 23:14 01/19/17 00:04 0.25 MG Magnesium Hydroxide (Milk Of Magnesia Susp) 30 ml DAILY PRN PO 01/19/17 09:00 02/18/17 08:59 Nitroglycerin (Nitrostat Tab) 0.4 mg PRN UT 01/18/17 23:15 02/17/17 23:14 Oxycodone/ Acetaminophen (Percocet 5-325mg Tab) 1 tab TID PRN PO 01/18/17 23:15 02/01/17 23:14 01/19/17 01:57 1 TAB Phenytoin Sodium (Dilantin Er Cap) 100 mg Q8 PO 01/19/17 06:00 02/18/17 05:59 01/19/17 16:59 100 MG Sodium Biphosphate/ Sodium Phosphate (Fleet Enema) 132 ml DAILY PRN RI 01/19/17 09:00 02/18/17 08:59 Trazodone HCl (Desyrel Tab) 25 mg Q8 PO 01/19/17 06:00 02/18/17 05:59 01/19/17 16:59 25 MG Clonidine HCl (Catapres Tab) 0.2 mg Q12 PO 01/19/17 09:00 02/18/17 08:59 01/19/17 07:55 0.2 MG Pantoprazole Sodium (Protonix Tab) 40 mg PM PO 01/19/17 21:00 02/18/17 20:59 Zonisamide (Zonegran) 100 mg BID PO 01/19/17 09:00 02/18/17 08:59 01/19/17 07:54 100 MG Miscellaneous (Fentanyl Patch Remove & Waste) 1 ea Q3D N/A 01/19/17 00:00 02/18/17 00:00 01/19/17 00:41 1 EA Miscellaneous Information (Check Fentanyl Patch Placement) 1 ea QS N/A 01/19/17 00:00 02/18/17 00:00 01/19/17 16:00 1 EA Cholecalciferol (Vitamin D Tab) 5,000 inter.unit DAILY PO 01/19/17 09:00 02/18/17 08:59 01/19/17 07:54 5,000 INTER.UNIT Aripiprazole (Abilify Soln) 2 mg QAM PO 01/19/17 09:00 02/18/17 08:59 01/19/17 07:55 2 MG Clopidogrel Bisulfate (plAVix TAB) 75 mg QAM PO 01/19/17 09:00 02/18/17 08:59 01/19/17 11:37 75 MG Metoprolol Tartrate (Lopressor Tab) 50 mg BID PO 01/19/17 21:00 02/18/17 20:59 Atorvastatin Calcium (Lipitor Tab) 20 mg QAM PO 01/20/17 09:00 02/19/17 08:59 Lorazepam 0.25 mg/ Syringe 0.25 ml @ 0.5 mls/min Q6H PRN IV 01/19/17 15:00 02/18/17 14:59 Levofloxacin 750 mg/Prmx 150 ml @ 100 mls/hr Q24H IV 01/19/17 18:00 01/26/17 17:59 01/19/17 19:25 100 MLS/HR Methylprednisolone Sodium Succinate 20 mg/Syringe 0.32 ml @ 1.5 mls/min Q8H IV 01/20/17 00:00 02/19/17 00:00 Ipratropium [place] (Atrovent 0.02% 0.5MG/2.5ML Neb) 0.5 mg Q6R INH 01/19/17 21:00 02/18/17 20:59 01/19/17 18:50 0.5 MG Levalbuterol (Xopenex 1.25MG/ 0.5ML Neb) 1.25 mg Q6R INH 01/19/17 21:00 02/18/17 20:59 01/19/17 18:50 1.25 MG Ipratropium [place] (Atrovent 0.02% 0.5MG/2.5ML Neb) 0.5 mg Q3H PRN INH 01/19/17 16:45 02/18/17 16:44 Levalbuterol (Xopenex 0.63 Mg/ 3 Ml Neb) 0.63 mg Q3H PRN INH 01/19/17 16:45 02/18/17 16:44 Piperacillin Sod/ Tazobactam Sod 3.375 gm/Dextrose 115 ml @ 28.75 mls/ hr Q8H IV 01/20/17 00:00 01/27/17 00:00 Levofloxacin (Consult) 1 ea UD PRN N/A 01/19/17 17:00 02/18/17 16:59 Piperacillin Sod/ Tazobactam Sod (Consult) 1 fermin UD PRN N/A 01/19/17 17:00 02/18/17 16:59
[2017-01-19] MEDS: METOPROLOL TARTRATE 50 MG TAB PO SCH (21:33)
[2017-01-19] MEDS: DOCUSATE SODIUM 100 MG CAP PO SCH (21:34)
[2017-01-19] MEDS: PANTOprazole SOD 40 MG TAB PO SCH (21:40)
[2017-01-19 22:35] LABS: POTASSIUM 4.3 mmol/L (3.5-5.1)
[2017-01-19 22:48] LABS: CKMB/CK RATIO 2.3 (0-3.0)
[2017-01-20] VITALS (11 sets, daily range): BP systolic 97–126; BP diastolic 64–83; PULSE 55–98; TEMP 36.5–37.4; O2SAT 94–100
[2017-01-20] MEDS: RANITIDINE IV 50 MG in DEXTROSE 5% 100ML 100 ML IV SCH ×3 (00:15→23:30)
[2017-01-20] MEDS: PIPERACILL/TAZOBAC IV 3.375 GM in DEXTROSE 5% 100ML IV SCH ×4 (00:15→23:30)
[2017-01-20] MEDS: CHECK FENTANYL PATCH PLACEMENT SCH ×4 (00:16→23:31)
[2017-01-20] MEDS: METHYLPREDNISOLONE IV 20 MG in SYRINGE 0 ML IV SCH ×2 (00:17→08:06)
[2017-01-20] MEDS: HEPARIN SOD 5000 UNIT/0.5 ML CARP SQ SCH ×4 (00:18→23:33)
[2017-01-20] MEDS: LEVALBUTEROL 1.25MG/0.5ML NEB INH SCH ×4 (01:50→19:00)
[2017-01-20] MEDS: IPRATROPIUM BROMIDE NEB SOLN 0.02% 2.5 ML VIAL INH SCH ×2 (01:50→07:05)
[2017-01-20] MEDS: PHENYTOIN SODIUM ER 100 MG CAP PO SCH ×3 (06:17→21:22)
[2017-01-20] MEDS: TRAZODONE HCL 50 MG TAB PO SCH ×3 (06:18→21:24)
[2017-01-20] MEDS: GABAPENTIN 300 MG CAP PO SCH ×3 (06:18→21:22)
[2017-01-20 06:51] LABS: BUN/CREATININE RATIO 19.6 (10-20); CALCIUM 8.5 mg/dl (8.5-10.1); CREATININE 1.6 mg/dl (0.60-1.40); POTASSIUM 4.2 mmol/L (3.5-5.1)
[2017-01-20 06:52] LABS: MAGNESIUM 2.3 mg/dl (1.8-2.4)
--- NOTE | 2017-01-20 07:23 | DIAGNOSTIC IMAGING REPORT ---
CHEST ONE VIEW PORTABLE CLINICAL HISTORY: f/u on infiltrates dyspnea COMPARISON STUDY: 01/19/2017 FINDINGS: Improving pulmonary edema. Improving mid mediastinal fullness. Diaphragms smooth. Mild decrease in cardiac size. Persistent bilateral parenchymal prominence. IMPRESSION: Improving pulmonary edematous change. The above report was generated using voice recognition software. It may contain grammatical, syntax or spelling errors. Electronically signed by: Shawn Chapman M.D. 01/20/2017 7:22 AM Dictated Date/Time: 01/20/2017 7:21 AM
[2017-01-20 07:54] LABS: ESTIMATED AVERAGE GLUCOSE 105 mg/dl; HA1C FLAG Normal (Normal)
[2017-01-20] MEDS: LANSOPRAZOLE SOLUTAB 15 MG PO SCH ×2 (08:06→21:23)
[2017-01-20] MEDS: ASPIRIN 81 MG ECTAB PO SCH (08:07)
[2017-01-20] MEDS: METOPROLOL TARTRATE 50 MG TAB PO SCH ×2 (08:07→21:22)
[2017-01-20] MEDS: CLONIDINE HCL 0.1 MG TAB PO SCH ×2 (08:07→21:22)
[2017-01-20] MEDS: LEVETIRACETAM 500 MG TAB PO SCH ×2 (08:08→21:23)
[2017-01-20] MEDS: ARIPIprazole 1 MG/ML ORAL SOLN 150 ML BTL PO SCH (08:08)
[2017-01-20] MEDS: ZONISAMIDE 100 MG CAP PO SCH ×2 (08:08→21:22)
[2017-01-20] MEDS: CITALOPRAM 20 MG TAB PO SCH (08:09)
[2017-01-20] MEDS: ATORVASTATIN 20 MG TAB PO SCH (08:09)
[2017-01-20] MEDS: DILTIAZEM HCL 240 MG CAPCR PO SCH ×2 (08:09→21:23)
[2017-01-20] MEDS: CLOPIDOGREL BISULFATE 75 MG TAB PO SCH (08:09)
[2017-01-20] MEDS: CHOLECALCIFEROL 1000 INTER.UNIT TAB PO SCH (08:10)
--- NOTE | 2017-01-20 08:56 | Cardiology Follow-Up ---
Subjective General Date of Service: Jan 20, 2017. Chief Complaint: follow up eleavted troponin, hypoxia Pt evaluation today including: conversation w/ patient, physical exam History of Present Illness The patient is a 56 year old male seen in followup. After I had seen him yesterday, pt has episode of acute hypoxia just before 1 pm on 01/19/17. EKG was unchanged with no ischemic Changes. CXR suggested pulmonary edema, less likely pneumonia. He received 40 mg of IV furosemide with clinical improvement. LEvenous duplex was negative for DVT. Troponin has continued to trend down , despite event. BP was stable at time of event. Telemetry reveals SR and Sinus tachycardia overnight. Pt denies discomfort or SOB but is poor historian due to cognitive impairment. Allergies Coded Allergies: Morphine (Unverified Allergy, Unknown, UNKOWN , 01/18/17) UNABLE TO INTERVIEW PT, INFORMATION FROM [facility] Social History Smoking Status: Never Smoker Hx Tobacco Use In Past Year?: No Hx Alcohol Use - Type And Amou: No Hx Substance Use - Type And Am: No Physical Exam Vital Signs Last Vital Signs Documentation Date Time Temp Pulse Resp B/P (MAP) Pulse Ox O2 Delivery O2 Flow Rate FiO2 01/20/17 07:16 36.5 64 13 116/71 (86) 94 Oxymask 6.0 Physical Exam Constitutional: General Apperance: heathly-appearing Level of Distress: NAD ENMT: normal ENT inspection Neck: supple Lungs: Auscultation: no wheezing, no rales/crackles, no rhonchi Cardiovascular: Heart Auscultation: RRR, no murmurs Abdomen: Inspection & Palpation: soft, non-distended Extremities: no cyanosis Assessment and Plan Assessment and Plan Impression 56 year old male SNF resident with 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 Elevated troponin with normal resting wall motion and LVEF on echo, no significant valve disease 2. Non ischemic EKG 3. No subjective symptoms of angina, but limited by cognitive impairment 4. hypoxia, pulmonary edema pattern on CXR, improving clinically and radiographically with furosemide 5. HTN 6. Possible pneumonia, aspiration risk Plan: LEvenous duplex was negative for DVT, he does have elevated ddimer and risk factors for VTE given sedentary state. Unable to physically perform VQ scan. Creatinine elevated , hesitant to perform CT scan, and I am hesitant to recommend empiric warfarin therapy. Not certain why pulmonary edema pattern occured. Cough have myocardial ischemia , with flash pulmonary edema, but given underlying comorbidities, not a candidate for cardiac cath. Will add Imdur for afterload reduction, angina prophylaxis. Continue SQ heparin for DVT prophylaxis. Emanuel Watson DO Laboratory Results Last 24 Hours Test 01/19/17 10:04 01/19/17 12:54 01/19/17 14:42 01/19/17 21:54 Total Creatine Kinase 97 U/L 101 U/L 82 U/L Creatine Kinase MB 3.0 ng/ml 2.4 ng/ml 1.9 ng/ml Creatine Kinase MB Ratio 3.1 2.4 2.3 Troponin I 2.590 ng/ml 2.690 ng/ml 2.190 ng/ml Bedside Glucose 147 mg/dl White Blood Count 9.27 K/uL Red Blood Count 3.69 M/uL Hemoglobin 10.5 g/dL Hematocrit 31.0 % Mean Corpuscular Volume 84.0 fL Mean Corpuscular Hemoglobin 28.5 pg Mean Corpuscular Hemoglobin Concent 33.9 g/dl RDW Standard Deviation 40.8 fL RDW Coefficient of Variation 13.4 % Platelet Count 161 K/uL Mean Platelet Volume 11.2 fL Prothrombin Time 11.4 SECONDS Prothromb Time International Ratio 1.1 Activated Partial Thromboplast Time 54.4 SECONDS Partial Thromboplastin Ratio 2.1 D-Dimer 1940 ug/L FEU Sodium Level 140 mmol/L Potassium Level 4.2 mmol/L 4.3 mmol/L Chloride Level 109 mmol/L Carbon Dioxide Level 25 mmol/L Anion Gap 6.0 mmol/L Blood Urea Nitrogen 26 mg/dl Creatinine 1.50 mg/dl Est Creatinine Clear Calc Drug Dose 59.4 ml/min Estimated GFR () 59.0 Estimated GFR (Non- 50.9 BUN/Creatinine Ratio 17.3 Random Glucose 115 mg/dl Calcium Level 8.4 mg/dl Pro-B-Type Natriuretic Peptide 9520 pg/ml Phenytoin (Dilantin) Level 10.0 mcg/mL Procalcitonin 0.17 ng/ml Test 01/20/17 05:33 01/20/17 06:26 Sodium Level 138 mmol/L Potassium Level 4.2 mmol/L Chloride Level 105 mmol/L Carbon Dioxide Level 26 mmol/L Anion Gap 7.0 mmol/L Blood Urea Nitrogen 31 mg/dl Creatinine 1.60 mg/dl Est Creatinine Clear Calc Drug Dose 54.9 ml/min Estimated GFR () 54.6 Estimated GFR (Non- 47.1 BUN/Creatinine Ratio 19.6 Random Glucose 133 mg/dl Estimated Average Glucose 105 mg/dl Hemoglobin A1c 5.3 % Calcium Level 8.5 mg/dl Magnesium Level 2.3 mg/dl Bedside Glucose 130 mg/dl
[2017-01-20] MEDS ORDERED: ISOSORBIDE MONONITRATE 30 MG TABCR PO ONE (08:59)
--- NOTE | 2017-01-20 09:25 | Progress Note ---
Medicine Progress Note Date & Time of Visit: Jan 20, 2017 at 08:30 . Subjective Feels much better- "spiffy." Out of bed in chair. No fever. Less SOB. Occasional nonproductive cough. No chest pain. No nausea, vomiting. 1 reported soft stool yesterday, none since. Still has [place]jo cath. . Objective Last 8 Hrs Date Time Temp Pulse Resp B/P (MAP) Pulse Ox O2 Delivery O2 Flow Rate FiO2 01/20/17 07:16 36.5 64 13 116/71 (86) 94 Oxymask 6.0 01/20/17 07:05 58 16 96 Mask 9.0 01/20/17 04:00 98 Oxymask 10.0 01/20/17 03:40 36.5 68 18 109/70 (83) 97 Oxymask 10.0 01/20/17 01:50 98 16 95 Mask 9.0 Physical Exam: General- sitting in chair, no distress ENT- nasal cannula Neck- + JVD Lungs- few bibasilar rales, diffuse mild wheezing Heart- RRR, no gallop appreciated Abdomen- normal bowel sounds, soft, nontender Extremities- trace pretibial edema Neuro- alert, oriented, dysarthric . Laboratory Results: Last 24 Hours Test 01/19/17 10:04 01/19/17 12:54 01/19/17 14:42 01/19/17 21:54 Total Creatine Kinase 97 U/L 101 U/L 82 U/L Creatine Kinase MB 3.0 ng/ml 2.4 ng/ml 1.9 ng/ml Creatine Kinase MB Ratio 3.1 2.4 2.3 Troponin I 2.590 ng/ml 2.690 ng/ml 2.190 ng/ml Bedside Glucose 147 mg/dl White Blood Count 9.27 K/uL Red Blood Count 3.69 M/uL Hemoglobin 10.5 g/dL Hematocrit 31.0 % Mean Corpuscular Volume 84.0 fL Mean Corpuscular Hemoglobin 28.5 pg Mean Corpuscular Hemoglobin Concent 33.9 g/dl RDW Standard Deviation 40.8 fL RDW Coefficient of Variation 13.4 % Platelet Count 161 K/uL Mean Platelet Volume 11.2 fL Prothrombin Time 11.4 SECONDS Prothromb Time International Ratio 1.1 Activated Partial Thromboplast Time 54.4 SECONDS Partial Thromboplastin Ratio 2.1 D-Dimer 1940 ug/L FEU Sodium Level 140 mmol/L Potassium Level 4.2 mmol/L 4.3 mmol/L Chloride Level 109 mmol/L Carbon Dioxide Level 25 mmol/L Anion Gap 6.0 mmol/L Blood Urea Nitrogen 26 mg/dl Creatinine 1.50 mg/dl Est Creatinine Clear Calc Drug Dose 59.4 ml/min Estimated GFR () 59.0 Estimated GFR (Non- 50.9 BUN/Creatinine Ratio 17.3 Random Glucose 115 mg/dl Calcium Level 8.4 mg/dl Pro-B-Type Natriuretic Peptide 9520 pg/ml Phenytoin (Dilantin) Level 10.0 mcg/mL Procalcitonin 0.17 ng/ml Test 01/20/17 05:33 01/20/17 06:26 Sodium Level 138 mmol/L Potassium Level 4.2 mmol/L Chloride Level 105 mmol/L Carbon Dioxide Level 26 mmol/L Anion Gap 7.0 mmol/L Blood Urea Nitrogen 31 mg/dl Creatinine 1.60 mg/dl Est Creatinine Clear Calc Drug Dose 54.9 ml/min Estimated GFR () 54.6 Estimated GFR (Non- 47.1 BUN/Creatinine Ratio 19.6 Random Glucose 133 mg/dl Estimated Average Glucose 105 mg/dl Hemoglobin A1c 5.3 % Calcium Level 8.5 mg/dl Magnesium Level 2.3 mg/dl Bedside Glucose 130 mg/dl Date/Time Source Procedure Growth Status 01/20/17 00:00 Nasal MRSA DNA Surveillance Screen - Final Specimen Negative for MRSA by DNA Probe Complete Diagnostic Imaging: Chest x-ray reviewed- improving pulmonary edema. . Assessment & Plan ACUTE HYPOXIC RESPIRATORY FAILURE Diagnosed with pneumonia about 1 week prior to admission. Started on oxygen a few days prior to admission. Worsening oxygenation 01/19/17. Treating for pulmonary edema and possible pneumonia as discussed below. Oxygenation improved; weaned from Oxymask to NC. No BiPAP or endotracheal intubation per discussion with patient and daughter. ELEVATED TROPONIN Seen in consultation by Cardiology. No chest pain. Serum troponins 3.110 --> --> 2.190. Total CPK and CPK-MB normal. No dramatic EKG changes. No wall motion abnormalities on echocardiogram. No strong evidence for PE. Troponin elevation probably nonspecific. PULMONARY EDEMA Chest x-ray at [place] [facility] and here on 01/19 demonstrated pulmonary edema. Echo shows normal LVEF of 55%. IV furosemide ordered with improvement of symptoms, exam, chest x-ray, and oxygenation. Furosemide 20 mg IV this a.m. Follow. POSSIBLE PNEUMONIA / POSSIBLE ASPIRATION Diagnosed with pneumonia 1 week ago and treated with levofloxacin. Chest x-rays past few days show pulmonary edema, no obvious infiltrates. Afebrile. WBC 11,290 --> 9270. Procalcitonin normal, so sepsis unlikely. Nasal MRSA screen negative, so MRSA pneumonia unlikely. Treating with broad-spectrum antibiotic therapy with levofloxacin and piperacillin/tazobactam. [employer] evaluation for swallowing aspiration risk. ELEVATED D-DIMER At risk for thromboembolic disease due to inactivity/bed rest. Venous duplex lower extremities negative for DVT. No RV strain on echo. Serum creatinine 1.5 - 1.6. Prudent to avoid CTA due to risk of contrast nephropathy. VQ scan will most likely be nondiagnostic. Receiving SQ unfractionated heparin with therapeutic PTT. Most likely that hypoxia secondary to pulmonary edema, not pulmonary embolism. HYPERTENSION Continue metoprolol, diltiazem, clonidine. CKD Stage uncertain. Serum creatinine 1.6 @ [place] [facility] day prior to admission. Creatinine today = 1.5. Follow. DM TYPE 2 Reported history of diabetes, but not on any diabetic medications at this time. Well-controlled. Hgb A1C = 5.3. FBS 130 on IV steroids. Follow. CEREBROVASCULAR DISEASE Neuro status at baseline. CT performed 01/18/17 at [facility] showed encephalomalacia, no acute events. SEIZURE DISORDER Phenytoin level 10. CHRONIC PAIN Continue fentanyl patch + Percocet PRN. VTE PROPHYLAXIS SQ heparin. RESUSCITATION STATUS DNR DISPOSITION Expected return to [place] when medically stable. . Consultants: Cardiology Pulmonary Medicine . Procedures: cardiac monitoring IV medications echo venous duplex lower extremities . Current Inpatient Medications: Current Inpatient Medications Medications (Trade) Dose Ordered Sig/Rafat Route Start Time Stop Time Status Last Admin Dose Admin Heparin Sodium (Porcine) (Heparin Sq 5000 Unit/0.5ml) 5,000 unit Q8H SQ 01/19/17 00:00 02/18/17 00:00 01/20/17 08:12 5,000 UNIT Potassium Chloride/Sodium Chloride 1,000 ml @ 75 mls/hr [id number] IV 01/18/17 22:00 02/17/17 21:59 Future Hold 01/19/17 11:38 75 MLS/HR Acetaminophen (Tylenol Tab) 650 mg Q4H PRN PO 01/18/17 22:00 02/17/17 21:59 Ondansetron HCl (Zofran Inj) 4 mg Q6H PRN IV 01/18/17 22:00 02/17/17 21:59 Aspirin (Ecotrin Tab) 81 mg DAILY PO 01/19/17 09:00 02/18/17 08:59 01/20/17 08:07 81 MG Bisacodyl (Dulcolax Tab) 10 mg DAILY PRN PO 01/19/17 09:00 02/18/17 08:59 Citalopram Hydrobromide (celeXA TAB) 30 mg DAILY PO 01/19/17 09:00 02/18/17 08:59 01/20/17 08:09 30 MG Diltiazem HCl (Cardizem Cd Cap) 240 mg Q12 PO 01/19/17 09:00 02/18/17 08:59 01/20/17 08:09 240 MG Docusate Sodium (coLACE CAP) 100 mg HS PO 01/19/17 21:00 02/18/17 20:59 01/19/17 21:34 100 MG Fentanyl (Duragesic Patch) 50 mcg Q72H TD 01/19/17 00:00 02/02/17 00:00 01/19/17 00:41 50 MCG Gabapentin (Neurontin Cap) 600 mg Q8 PO 01/19/17 06:00 02/18/17 05:59 01/20/17 08:07 600 MG Levetiracetam (Keppra Tab) 500 mg BID PO 01/19/17 09:00 02/18/17 08:59 01/20/17 08:08 500 MG Lorazepam (Ativan Tab) 0.25 mg HS PRN PO 01/18/17 23:15 02/17/17 23:14 01/19/17 00:04 0.25 MG Magnesium Hydroxide (Milk Of Magnesia Susp) 30 ml DAILY PRN PO 01/19/17 09:00 02/18/17 08:59 Nitroglycerin (Nitrostat Tab) 0.4 mg PRN UT 01/18/17 23:15 02/17/17 23:14 Oxycodone/ Acetaminophen (Percocet 5-325mg Tab) 1 tab TID PRN PO 01/18/17 23:15 02/01/17 23:14 01/19/17 01:57 1 TAB Phenytoin Sodium (Dilantin Er Cap) 100 mg Q8 PO 01/19/17 06:00 02/18/17 05:59 01/20/17 06:17 100 MG Sodium Biphosphate/ Sodium Phosphate (Fleet Enema) 132 ml DAILY PRN SD 01/19/17 09:00 02/18/17 08:59 Trazodone HCl (Desyrel Tab) 25 mg Q8 PO 01/19/17 06:00 02/18/17 05:59 01/20/17 06:18 25 MG Clonidine HCl (Catapres Tab) 0.2 mg Q12 PO 01/19/17 09:00 02/18/17 08:59 01/20/17 08:07 0.2 MG Pantoprazole Sodium (Protonix Tab) 40 mg PM PO 01/19/17 21:00 02/18/17 20:59 01/19/17 21:40 40 MG Zonisamide (Zonegran) 100 mg BID PO 01/19/17 09:00 02/18/17 08:59 01/20/17 08:08 100 MG Miscellaneous (Fentanyl Patch Remove & Waste) 1 ea Q3D N/A 01/19/17 00:00 02/18/17 00:00 01/19/17 00:41 1 EA Miscellaneous Information (Check Fentanyl Patch Placement) 1 ea QS N/A 01/19/17 00:00 02/18/17 00:00 01/20/17 08:06 1 EA Cholecalciferol (Vitamin D Tab) 5,000 inter.unit DAILY PO 01/19/17 09:00 02/18/17 08:59 01/20/17 08:10 5,000 INTER.UNIT Aripiprazole (Abilify Soln) 2 mg QAM PO 01/19/17 09:00 02/18/17 08:59 01/20/17 08:08 2 MG Clopidogrel Bisulfate (plAVix TAB) 75 mg QAM PO 01/19/17 09:00 02/18/17 08:59 01/20/17 08:09 75 MG Metoprolol Tartrate (Lopressor Tab) 50 mg BID PO 01/19/17 21:00 02/18/17 20:59 01/20/17 08:07 50 MG Atorvastatin Calcium (Lipitor Tab) 20 mg QAM PO 01/20/17 09:00 02/19/17 08:59 01/20/17 08:09 20 MG Lorazepam 0.25 mg/ Syringe 0.25 ml @ 0.5 mls/min Q6H PRN IV 01/19/17 15:00 02/18/17 14:59 Levofloxacin 750 mg/Prmx 150 ml @ 100 mls/hr Q24H IV 01/19/17 18:00 01/26/17 17:59 01/19/17 19:25 100 MLS/HR Methylprednisolone Sodium Succinate 20 mg/Syringe 0.32 ml @ 1.5 mls/min Q8H IV 01/20/17 00:00 02/19/17 00:00 01/20/17 08:06 1.5 MLS/MIN Ipratropium Malone (Atrovent 0.02% 0.5MG/2.5ML Neb) 0.5 mg Q6R INH 01/19/17 21:00 02/18/17 20:59 01/20/17 07:05 0.5 MG Levalbuterol (Xopenex 1.25MG/ 0.5ML Neb) 1.25 mg Q6R INH 01/19/17 21:00 02/18/17 20:59 01/20/17 07:05 1.25 MG Ipratropium Malone (Atrovent 0.02% 0.5MG/2.5ML Neb) 0.5 mg Q3H PRN INH 01/19/17 16:45 02/18/17 16:44 Levalbuterol (Xopenex 0.63 Mg/ 3 Ml Neb) 0.63 mg Q3H PRN INH 01/19/17 16:45 02/18/17 16:44 Piperacillin Sod/ Tazobactam Sod 3.375 gm/Dextrose 115 ml @ 28.75 mls/ hr Q8H IV 01/20/17 00:00 01/27/17 00:00 01/20/17 08:14 28.75 MLS/HR Levofloxacin (Consult) 1 ea UD PRN N/A 01/19/17 17:00 02/18/17 16:59 Piperacillin Sod/ Tazobactam Sod (Consult) 1 ea UD PRN N/A 01/19/17 17:00 02/18/17 16:59 Ranitidine HCl 50 mg/Dextrose 102 ml @ 200 mls/hr Q12H IV 01/20/17 00:00 02/19/17 00:00 01/20/17 00:15 200 MLS/HR Lansoprazole (Prevacid Solutab) 15 mg BID PO 01/20/17 09:00 02/19/17 08:59 01/20/17 08:06 15 MG Furosemide 20 mg/ Syringe 2 ml @ 4 mls/min TODAY@1000 IV 01/20/17 10:00 01/20/17 12:00 Isosorbide Mononitrate (Imdur Ext Rel Tab) 15 mg QAM PO 01/20/17 09:00 02/19/17 08:59 UNV Isosorbide Mononitrate (Imdur Ext Rel Tab) 15 mg 0859 ONCE PO 01/20/17 08:59 01/20/17 09:00 UNV
[2017-01-20] MEDS ORDERED: FUROSEMIDE INJ 20 MG in SYRINGE 0 ML IV SCH (10:00)
--- NOTE | 2017-01-20 10:26 | PULMONARY PROGRESS NOTE ---
DATE: 01/20/2017 TIME: 09:50 a.m. SUBJECTIVE: The patient is much improved today. His breathing is much more comfortable. His speech seems a little better today. The patient himself who is not the best historian, indicates he does feel quite a bit better. He has been weaned off of the OxyMask and is now on nasal cannula without difficulty. There were no noted problems overnight. OBJECTIVE: GENERAL: The patient is comfortable. He was sleeping when I came in, but aroused readily. He is sitting in a chair. VITAL SIGNS: Temperature was 36.5. He has not had any significant fevers for the past 24 hours. The maximum temperature was 37.2. Heart rate is 68 per minute. The rhythm is regular. Blood pressure is 116/71. His oxygen saturation has been good. Earlier, it was 94% on OxyMask with 6 liters. He is now on nasal cannula. Pulse ox currently is 98%. EARS, NOSE, AND THROAT: Unchanged. LUNGS: Auscultation of the lung hair revealed just a few rales. These are minimal. Respiratory rate is 16 breaths per minute. ABDOMEN: Soft and nontender. EXTREMITIES: He has some livedo reticularis in the area of both knees and the skin is very cool in these areas. Above the knee and below the knee, the skin is warm. His pulses are good peripherally. The patient had a chest x-ray done this morning that shows significant improvement in the apparent pulmonary edema findings. If this were pneumonia, I would not have expected the improvement so rapidly. Blood sugar this morning is 130. Electrolytes show sodium 138, potassium 4.2, chloride 105, and bicarb 26. The BUN is 31 with a creatinine of 1.6. Yesterday, the BUN was 26 with a creatinine of 1.5. The procalcitonin was 0.17. Nasal swab was negative for MRSA. IMPRESSIONS: 1. Acute respiratory failure with hypoxia -- much improved. 2. Diffuse bilateral airspace disease - suspects congestive heart failure with pneumonia less likely. 3. Multiinfarct dementia. COMMENTS AND RECOMMENDATIONS: The case was discussed earlier today with Dr. Sarabia. I would continue to treat for the CHF with whatever is desired by medicine and cardiology. I would continue the methylprednisolone for another day and if the patient is stable, would likely discontinue that. I would continue the Zosyn for now, even though it seems like the pneumonia is less likely. MTDD
[2017-01-20 17:00] LABS: BUN/CREATININE RATIO 18.5 (10-20); CALCIUM 8.5 mg/dl (8.5-10.1); CREATININE 1.9 mg/dl (0.60-1.40); POTASSIUM 4.4 mmol/L (3.5-5.1)
[2017-01-20] MEDS: LEVOFLOXACIN / D5W 750 MG in PREMIXED IN D5W 150 ML IV SCH (17:53)
[2017-01-20] MEDS: DOCUSATE SODIUM 100 MG CAP PO SCH (21:22)
[2017-01-20] MEDS: PANTOprazole SOD 40 MG TAB PO SCH (21:23)
[2017-01-21] VITALS (9 sets, daily range): BP systolic 91–119; BP diastolic 56–73; PULSE 61–72; TEMP 36.6–37.1; O2SAT 92–97
[2017-01-21] MEDS: LEVALBUTEROL 1.25MG/0.5ML NEB INH SCH ×2 (02:05→07:17)
[2017-01-21] MEDS: PHENYTOIN SODIUM ER 100 MG CAP PO SCH ×3 (05:48→20:39)
[2017-01-21] MEDS: GABAPENTIN 300 MG CAP PO SCH ×3 (05:48→20:39)
[2017-01-21] MEDS: TRAZODONE HCL 50 MG TAB PO SCH ×3 (05:48→20:40)
[2017-01-21 06:16] LABS: HEMATOCRIT 29.2 % (42-52)
[2017-01-21 06:55] LABS: BUN/CREATININE RATIO 19.9 (10-20); CALCIUM 8.1 mg/dl (8.5-10.1); CREATININE 1.9 mg/dl (0.60-1.40); MAGNESIUM 2.1 mg/dl (1.8-2.4); POTASSIUM 3.4 mmol/L (3.5-5.1)
--- NOTE | 2017-01-21 08:04 | DIAGNOSTIC IMAGING REPORT ---
CHEST ONE VIEW PORTABLE HISTORY: f/u pulmonary edema, possible pneumonia COMPARISON: Chest 01/20/2017. FINDINGS: The heart remains enlarged. Interstitial and vascular thickening with bilateral perihilar airspace opacities persist. No significant pleural effusions. No pneumothorax. IMPRESSION: No change from the prior study. Perihilar airspace opacities with cardiomegaly and interstitial thickening persists. This may represent pulmonary edema or a pneumonia. Continued follow-up is recommended. Electronically signed by: Sharan Rapp M.D. 01/21/2017 8:03 AM Dictated Date/Time: 01/21/2017 8:02 AM
--- NOTE | 2017-01-21 08:25 | PULMONARY PROGRESS NOTE ---
DATE: 01/21/2017 TIME: 7:45 a.m. SUBJECTIVE: The patient indicated that he feels somewhat short of breath. Nursing staff; however, did not report any problems at all. His appetite is good. He has an occasional cough. OBJECTIVE: GENERAL: The patient looks comfortable. He verbalized some, but with a degree of speech problems. VITAL SIGNS: Temperature is 36.8. The maximum temperature in the past 24 hours is 37.4. That was yesterday in the early afternoon. ENT: Otherwise, unremarkable. HEART: Heart rate is 80 beats per minute. The rhythm is regular and is normal sinus. The blood pressure is 107/62. His respiratory rate is 16 breaths per minute. Blood pressure is 91/56. LUNGS: The lung hiar were clear bilaterally. Oxygen saturation was 97% on 5 liters nasal cannula. ABDOMEN: Soft. Bowel sounds are present. There was no tenderness to palpation. EXTREMITIES: Showed no cyanosis, clubbing or edema. DATA: Chest x-ray done this morning based upon my review shows some increase in the interstitial and alveolar markings compared with an x-ray done yesterday. The increase is a bit more noticeable on the right than on the left. However, today's x-ray is much improved compared with the x-ray done on January 19. The recorded intake and output for yesterday shows a fluid balance of positive 245 mL. His intake was 1845 with an output of 1600. Hemoglobin today is 9.2 and yesterday had been 10.5. On the it was 11. Blood sugar this morning is 109. Electrolytes show sodium 140, potassium 3.4, chloride 105, bicarbonate 28. The BUN today is 38 with a creatinine of 1.9. Creatinine is unchanged from yesterday and the BUN is slightly higher. Yesterday's BUN was 35. ASSESSMENT: 1. Acute respiratory failure with hypoxia -- improved. 2. Congestive heart failure. 3. Cannot entirely exclude pneumonia. 4. Multiinfarct dementia. COMMENTS AND RECOMMENDATIONS: The patient clinically seems stable, although it appeared to me his x-ray might be a little worse. I would continue with his current course of treatment.
[2017-01-21] MEDS: PIPERACILL/TAZOBAC IV 3.375 GM in DEXTROSE 5% 100ML IV SCH ×3 (08:48→22:59)
[2017-01-21] MEDS: POTASSIUM CHLR 10 MEQ / WTR 10 MEQ in PREMIXED WATER 100 ML IV SCH ×2 (08:48→09:00)
[2017-01-21] MEDS: CHECK FENTANYL PATCH PLACEMENT SCH ×3 (08:49→23:05)
[2017-01-21] MEDS: ARIPIprazole 1 MG/ML ORAL SOLN 150 ML BTL PO SCH (08:49)
[2017-01-21] MEDS: DILTIAZEM HCL 240 MG CAPCR PO SCH ×2 (08:50→20:39)
[2017-01-21] MEDS: CLONIDINE HCL 0.1 MG TAB PO SCH ×2 (08:51→20:41)
[2017-01-21] MEDS: CITALOPRAM 20 MG TAB PO SCH (08:52)
[2017-01-21] MEDS: ASPIRIN 81 MG ECTAB PO SCH (08:53)
[2017-01-21] MEDS: ISOSORBIDE MONONITRATE 30 MG TABCR PO SCH (08:53)
[2017-01-21] MEDS: LEVETIRACETAM 500 MG TAB PO SCH ×2 (08:54→20:41)
[2017-01-21] MEDS: CLOPIDOGREL BISULFATE 75 MG TAB PO SCH (08:54)
[2017-01-21] MEDS: METOPROLOL TARTRATE 50 MG TAB PO SCH ×2 (08:54→20:40)
[2017-01-21] MEDS: ATORVASTATIN 20 MG TAB PO SCH (08:54)
[2017-01-21] MEDS: CHOLECALCIFEROL 1000 INTER.UNIT TAB PO SCH (08:55)
[2017-01-21] MEDS: LANSOPRAZOLE SOLUTAB 15 MG PO SCH ×2 (08:55→20:40)
[2017-01-21] MEDS: ZONISAMIDE 100 MG CAP PO SCH ×2 (08:55→20:40)
[2017-01-21] MEDS: HEPARIN SOD 5000 UNIT/0.5 ML CARP SQ SCH ×3 (08:57→23:03)
[2017-01-21] MEDS: RANITIDINE IV 50 MG in DEXTROSE 5% 100ML 100 ML IV SCH ×2 (11:38→22:59)
--- NOTE | 2017-01-21 18:00 | Cardiology Follow-Up ---
Subjective General Date of Service: Jan 21, 2017. Chief Complaint: follow up eleavted troponin, hypoxia Pt evaluation today including: conversation w/ patient, physical exam History of Present Illness The patient is a 56 year old male seen in follow up. Patient is much more alert. He is a poor historian due to his cognitive impairment but relays no complaint. He appears much more comfortable. He has not required any additional furosemide and is on IV antibiotics. His I/O is positive. CXR is unchanged with CHF vs atypical pneumonia, however, pt is not volume overloaded on exam. The sinus tachycardia has resolved and NSR is noted on telemetry. He is no longer diaphoretic. Allergies Coded Allergies: Morphine (Unverified Allergy, Unknown, UNKOWN , 01/18/17) UNABLE TO INTERVIEW PT, INFORMATION FROM [facility] Social History Smoking Status: Never Smoker Hx Tobacco Use In Past Year?: No Hx Alcohol Use - Type And Amou: No Hx Substance Use - Type And Am: No Physical Exam Vital Signs Last Vital Signs Documentation Date Time Temp Pulse Resp B/P (MAP) Pulse Ox O2 Delivery O2 Flow Rate FiO2 01/21/17 15:08 36.7 72 12 118/72 (87) 96 Nasal Cannula 4.0 Physical Exam Constitutional: General Apperance: heathly-appearing Level of Distress: NAD ENMT: normal ENT inspection Neck: supple Lungs: Auscultation: no wheezing, no rales/crackles, no rhonchi Cardiovascular: Heart Auscultation: RRR, no murmurs Abdomen: Inspection & Palpation: soft, non-distended Extremities: no cyanosis Assessment and Plan Assessment and Plan Impression 56 year old male SNF resident with 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 Elevated troponin with normal resting wall motion and LVEF on echo, no significant valve disease 2. Non ischemic EKG 3. No subjective symptoms of angina, but limited by cognitive impairment 4. hypoxia, pulmonary edema pattern on CXR vs pneumonia, clinically improved with furosemide x 1 and antibiotics 5. HTN 6. Possible pneumonia, aspiration risk Plan: Continue present therapy. Continue SQ heparin for DVT prophylaxis. Emanuel Watson DO Laboratory Results Last 24 Hours Test 01/20/17 20:23 01/21/17 05:29 01/21/17 06:22 01/21/17 10:56 Bedside Glucose 101 mg/dl 109 mg/dl 136 mg/dl Hemoglobin 9.2 g/dL Hematocrit 29.2 % Sodium Level 140 mmol/L Potassium Level 3.4 mmol/L Chloride Level 105 mmol/L Carbon Dioxide Level 28 mmol/L Anion Gap 7.0 mmol/L Blood Urea Nitrogen 38 mg/dl Creatinine 1.90 mg/dl Est Creatinine Clear Calc Drug Dose 46.3 ml/min Estimated GFR () 44.4 Estimated GFR (Non- 38.3 BUN/Creatinine Ratio 19.9 Random Glucose 106 mg/dl Calcium Level 8.1 mg/dl Magnesium Level 2.1 mg/dl Test 01/21/17 16:19 Bedside Glucose 103 mg/dl
[2017-01-21] MEDS: LEVOFLOXACIN / D5W 750 MG in PREMIXED IN D5W 150 ML IV SCH (18:09)
[2017-01-21 18:38] LABS: BUN/CREATININE RATIO 16.4 (10-20); CALCIUM 8.1 mg/dl (8.5-10.1)
[2017-01-21] MEDS: PANTOprazole SOD 40 MG TAB PO SCH (20:40)
[2017-01-21] MEDS: DOCUSATE SODIUM 100 MG CAP PO SCH (20:41)
--- NOTE | 2017-01-21 20:44 | Progress Note ---
Medicine Progress Note Date & Time of Visit: Jan 21, 2017 at 09:30 . Subjective Feels better. No complaints. No fever. Denies cough or shortness of breath. No chest pain. No nausea, vomiting. No diarrhea. Still has [place] cath. . Objective Last 8 Hrs Date Time Temp Pulse Resp B/P (MAP) Pulse Ox O2 Delivery O2 Flow Rate FiO2 01/21/17 20:00 Nasal Cannula 4.0 01/21/17 18:50 37.1 68 19 117/73 (88) 96 Room Air 01/21/17 16:00 Nasal Cannula 01/21/17 15:08 36.7 72 12 118/72 (87) 96 Nasal Cannula 4.0 Physical Exam: General- lying in bed, no distress Neck- + JVD Lungs- few bibasilar rales, diffuse mild wheezing Heart- RRR, no gallop appreciated Abdomen- normal bowel sounds, soft, nontender Extremities- trace pretibial edema Neuro- alert, oriented, dysarthric . Laboratory Results: Last 24 Hours Test 01/21/17 05:29 01/21/17 06:22 01/21/17 10:56 01/21/17 16:19 Hemoglobin 9.2 g/dL Hematocrit 29.2 % Sodium Level 140 mmol/L Potassium Level 3.4 mmol/L Chloride Level 105 mmol/L Carbon Dioxide Level 28 mmol/L Anion Gap 7.0 mmol/L Blood Urea Nitrogen 38 mg/dl Creatinine 1.90 mg/dl Est Creatinine Clear Calc Drug Dose 46.3 ml/min Estimated GFR () 44.4 Estimated GFR (Non- 38.3 BUN/Creatinine Ratio 19.9 Random Glucose 106 mg/dl Calcium Level 8.1 mg/dl Magnesium Level 2.1 mg/dl Bedside Glucose 109 mg/dl 136 mg/dl 103 mg/dl Test 01/21/17 18:01 Sodium Level 138 mmol/L Potassium Level 4.0 mmol/L Chloride Level 106 mmol/L Carbon Dioxide Level 27 mmol/L Anion Gap 5.0 mmol/L Blood Urea Nitrogen 33 mg/dl Creatinine 2.00 mg/dl Est Creatinine Clear Calc Drug Dose 44.0 ml/min Estimated GFR () 41.7 Estimated GFR (Non- 36.0 BUN/Creatinine Ratio 16.4 Random Glucose 115 mg/dl Calcium Level 8.1 mg/dl Assessment & Plan ACUTE HYPOXIC RESPIRATORY FAILURE Diagnosed with pneumonia about 1 week prior to admission. Started on oxygen a few days prior to admission. Worsening oxygenation 01/19/17. Treating for pulmonary edema and possible pneumonia as discussed below. Oxygenation improved; weaned from Oxymask to [place]. Saturations remained stable on nasal cannula. No BiPAP or endotracheal intubation per discussion with patient and daughter. ELEVATED TROPONIN Seen in consultation by Cardiology. No chest pain. Serum troponins 3.110 --> --> 2.190. Total CPK and CPK-MB normal. No dramatic EKG changes. No wall motion abnormalities on echocardiogram. No strong evidence for PE. Troponin elevation probably nonspecific. PULMONARY EDEMA Chest x-ray at [facility] and here on 01/19 demonstrated pulmonary edema. Echo showed normal LVEF of 55%. Probable acute left ventricular diastolic failure. IV furosemide ordered with improvement of symptoms, exam, chest x-ray, and oxygenation. No furosemide this morning because of rising creatinine. Follow. POSSIBLE PNEUMONIA / POSSIBLE ASPIRATION Diagnosed with pneumonia 1 week ago and treated with levofloxacin. Chest x-rays past few days show pulmonary edema, no obvious infiltrates. Afebrile. WBC 11,290 --> 9270. Procalcitonin normal, so sepsis unlikely. Nasal MRSA screen negative, so MRSA pneumonia unlikely. Treating with broad-spectrum antibiotic therapy with levofloxacin and piperacillin/tazobactam. CUSTOMER TECH[employer]ICAL SERVICES MANAGER performed bedside swallowing evaluation; no overt aspiration, but aspiration precautions recommended. ELEVATED D-DIMER At risk for thromboembolic disease due to inactivity/bed rest. Venous duplex lower extremities negative for DVT. No RV strain on echo. Serum creatinine 1.5 - 1.6. Prudent to avoid CTA due to risk of contrast nephropathy. VQ scan will most likely be nondiagnostic. Receiving SQ unfractionated heparin with therapeutic PTT. Most likely that hypoxia secondary to pulmonary edema, not pulmonary embolism. HYPERTENSION Continue metoprolol, diltiazem, clonidine. CKD Stage uncertain. Serum creatinine 1.6 @ [facility] day prior to admission. Creatinine today = 1.9. Hold diuretics. Follow. DM TYPE 2 Reported history of diabetes, but not on any diabetic medications at this time. Well-controlled. Hgb A1C = 5.3. FBS 115. Follow. CEREBROVASCULAR DISEASE Neuro status at baseline. CT performed 01/18/17 at [facility] showed encephalomalacia, no acute events. SEIZURE DISORDER Phenytoin level 10. CHRONIC PAIN Continue fentanyl patch + Percocet PRN. VTE PROPHYLAXIS SQ heparin. RESUSCITATION STATUS DNR DISPOSITION Expected return to [facility] when medically stable. Daughter given update last evening by phone. . Consultants: Cardiology Pulmonary Medicine . Procedures: cardiac monitoring IV medications echo venous duplex lower extremities . Current Inpatient Medications: Current Inpatient Medications Medications (Trade) Dose Ordered Sig/Rafat Route Start Time Stop Time Status Last Admin Dose Admin Heparin Sodium (Porcine) (Heparin Sq 5000 Unit/0.5ml) 5,000 unit Q8H SQ 01/19/17 00:00 02/18/17 00:00 01/21/17 16:03 5,000 UNIT Potassium Chloride/Sodium Chloride 1,000 ml @ 75 mls/hr [id number] IV 01/18/17 22:00 02/17/17 21:59 Future Hold 01/19/17 11:38 75 MLS/HR Acetaminophen (Tylenol Tab) 650 mg Q4H PRN PO 01/18/17 22:00 02/17/17 21:59 Ondansetron HCl (Zofran Inj) 4 mg Q6H PRN IV 01/18/17 22:00 02/17/17 21:59 Aspirin (Ecotrin Tab) 81 mg DAILY PO 01/19/17 09:00 02/18/17 08:59 01/21/17 08:53 81 MG Bisacodyl (Dulcolax Tab) 10 mg DAILY PRN PO 01/19/17 09:00 02/18/17 08:59 Citalopram Hydrobromide (celeXA TAB) 30 mg DAILY PO 01/19/17 09:00 02/18/17 08:59 01/21/17 08:52 30 MG Diltiazem HCl (Cardizem Cd Cap) 240 mg Q12 PO 01/19/17 09:00 02/18/17 08:59 01/21/17 08:50 240 MG Docusate Sodium (coLACE CAP) 100 mg HS PO 01/19/17 21:00 02/18/17 20:59 01/20/17 21:22 100 MG Fentanyl (Duragesic Patch) 50 mcg Q72H TD 01/19/17 00:00 02/02/17 00:00 01/19/17 00:41 50 MCG Gabapentin (Neurontin Cap) 600 mg Q8 PO 01/19/17 06:00 02/18/17 05:59 01/21/17 13:44 600 MG Levetiracetam (Keppra Tab) 500 mg BID PO 01/19/17 09:00 02/18/17 08:59 01/21/17 08:54 500 MG Lorazepam (Ativan Tab) 0.25 mg HS PRN PO 01/18/17 23:15 02/17/17 23:14 01/19/17 00:04 0.25 MG Magnesium Hydroxide (Milk Of Magnesia Susp) 30 ml DAILY PRN PO 01/19/17 09:00 02/18/17 08:59 Nitroglycerin (Nitrostat Tab) 0.4 mg PRN [place] 01/18/17 23:15 02/17/17 23:14 Oxycodone/ Acetaminophen (Percocet 5-325mg Tab) 1 tab TID PRN PO 01/18/17 23:15 02/01/17 23:14 01/19/17 01:57 1 TAB Phenytoin Sodium (Dilantin Er Cap) 100 mg Q8 PO 01/19/17 06:00 02/18/17 05:59 01/21/17 13:43 100 MG Sodium Biphosphate/ Sodium Phosphate (Fleet Enema) 132 ml DAILY PRN [place] 01/19/17 09:00 02/18/17 08:59 Trazodone HCl (Desyrel Tab) 25 mg Q8 PO 01/19/17 06:00 02/18/17 05:59 01/21/17 13:43 25 MG Clonidine HCl (Catapres Tab) 0.2 mg Q12 PO 01/19/17 09:00 02/18/17 08:59 01/21/17 08:51 0.2 MG Pantoprazole Sodium (Protonix Tab) 40 mg PM PO 01/19/17 21:00 02/18/17 20:59 01/20/17 21:23 40 MG Zonisamide (Zonegran) 100 mg BID PO 01/19/17 09:00 02/18/17 08:59 01/21/17 08:55 100 MG Miscellaneous (Fentanyl Patch Remove & Waste) 1 ea Q3D N/A 01/19/17 00:00 02/18/17 00:00 01/19/17 00:41 1 EA Miscellaneous Information (Check Fentanyl Patch Placement) 1 ea QS N/A 01/19/17 00:00 02/18/17 00:00 01/21/17 16:02 1 EA Cholecalciferol (Vitamin D Tab) 5,000 inter.unit DAILY PO 01/19/17 09:00 02/18/17 08:59 01/21/17 08:55 5,000 INTER.UNIT Aripiprazole (Abilify Soln) 2 mg QAM PO 01/19/17 09:00 02/18/17 08:59 01/21/17 08:49 2 MG Clopidogrel Bisulfate (plAVix TAB) 75 mg QAM PO 01/19/17 09:00 02/18/17 08:59 01/21/17 08:54 75 MG Metoprolol Tartrate (Lopressor Tab) 50 mg BID PO 01/19/17 21:00 02/18/17 20:59 01/21/17 08:54 50 MG Atorvastatin Calcium (Lipitor Tab) 20 mg QAM PO 01/20/17 09:00 02/19/17 08:59 01/21/17 08:54 20 MG Lorazepam 0.25 mg/ Syringe 0.25 ml @ 0.5 mls/min Q6H PRN IV 01/19/17 15:00 02/18/17 14:59 Levofloxacin 750 mg/Prmx 150 ml @ 100 mls/hr Q24H IV 01/19/17 18:00 01/26/17 17:59 01/21/17 18:09 100 MLS/HR Levalbuterol (Xopenex 1.25MG/ 0.5ML Neb) 1.25 mg Q6R INH 01/19/17 21:00 02/18/17 20:59 01/21/17 07:17 1.25 MG Ipratropium [place] (Atrovent 0.02% 0.5MG/2.5ML Neb) 0.5 mg Q3H PRN INH 01/19/17 16:45 02/18/17 16:44 Levalbuterol (Xopenex 0.63 Mg/ 3 Ml Neb) 0.63 mg Q3H PRN INH 01/19/17 16:45 02/18/17 16:44 Piperacillin Sod/ Tazobactam Sod 3.375 gm/Dextrose 115 ml @ 28.75 mls/ hr Q8H IV 01/20/17 00:00 01/27/17 00:00 01/21/17 16:02 28.75 MLS/HR Levofloxacin (Consult) 1 ea UD PRN N/A 01/19/17 17:00 02/18/17 16:59 Piperacillin Sod/ Tazobactam Sod (Consult) 1 ea UD PRN N/A 01/19/17 17:00 02/18/17 16:59 Ranitidine HCl 50 mg/Dextrose 102 ml @ 200 mls/hr Q12H IV 01/20/17 00:00 02/19/17 00:00 01/21/17 11:38 200 MLS/HR Lansoprazole (Prevacid Solutab) 15 mg BID PO 01/20/17 09:00 02/19/17 08:59 01/21/17 08:55 15 MG Isosorbide Mononitrate (Imdur Ext Rel Tab) 15 mg QAM PO 01/21/17 09:00 02/20/17 08:59 01/21/17 08:53 15 MG
[2017-01-21] MEDS: FENTANYL 50 MCG/HR TDSY TD SCH (23:04)
[2017-01-21] MEDS: FENTANYL PATCH REMOVE & WASTE SCH (23:04)
[2017-01-22 03:45] VITALS: BP 110/68; PULSE 61; TEMP 36.7; O2SAT 98
[2017-01-22 06:06] LABS: HEMATOCRIT 29.4 % (42-52); MEAN CELL VOLUME 85.7 fL (80-100); MEAN CORPUSCULAR HEMOGLOBIN 27.7 pg (25-34); MEAN CORPUSCULAR HGB CONC 32.3 g/dl (32-36); MEAN PLATELET VOLUME 11.1 fL (7.4-10.4); PLATELET COUNT 191 K/uL (130-400); RED BLOOD COUNT 3.43 M/uL (4.7-6.1)
[2017-01-22] MEDS: GABAPENTIN 300 MG CAP PO SCH ×3 (06:20→20:39)
[2017-01-22] MEDS: PHENYTOIN SODIUM ER 100 MG CAP PO SCH ×3 (06:21→20:40)
[2017-01-22] MEDS: TRAZODONE HCL 50 MG TAB PO SCH ×3 (06:21→20:40)
[2017-01-22 06:36] LABS: BUN/CREATININE RATIO 17.5 (10-20); CALCIUM 8.1 mg/dl (8.5-10.1); CREATININE 1.8 mg/dl (0.60-1.40); POTASSIUM 3.9 mmol/L (3.5-5.1)
[2017-01-22 07:12] VITALS: BP 102/59; PULSE 54; TEMP 36.8; O2SAT 99
[2017-01-22] MEDS: PIPERACILL/TAZOBAC IV 3.375 GM in DEXTROSE 5% 100ML IV SCH ×2 (08:49→16:08)
[2017-01-22] MEDS: CHECK FENTANYL PATCH PLACEMENT SCH ×2 (08:54→16:11)
[2017-01-22] MEDS: HEPARIN SOD 5000 UNIT/0.5 ML CARP SQ SCH ×2 (08:55→16:08)
[2017-01-22] MEDS: ARIPIprazole 1 MG/ML ORAL SOLN 150 ML BTL PO SCH (08:56)
[2017-01-22] MEDS: DILTIAZEM HCL 240 MG CAPCR PO SCH ×2 (08:57→20:39)
[2017-01-22] MEDS: CLONIDINE HCL 0.1 MG TAB PO SCH ×2 (08:57→20:39)
[2017-01-22] MEDS: ASPIRIN 81 MG ECTAB PO SCH (08:58)
[2017-01-22] MEDS: CITALOPRAM 20 MG TAB PO SCH (08:58)
[2017-01-22] MEDS: ISOSORBIDE MONONITRATE 30 MG TABCR PO SCH (08:59)
[2017-01-22] MEDS: ATORVASTATIN 20 MG TAB PO SCH (08:59)
[2017-01-22] MEDS: LEVETIRACETAM 500 MG TAB PO SCH ×2 (08:59→20:39)
[2017-01-22] MEDS: LANSOPRAZOLE SOLUTAB 15 MG PO SCH ×2 (09:00→20:40)
[2017-01-22] MEDS: CLOPIDOGREL BISULFATE 75 MG TAB PO SCH (09:00)
[2017-01-22] MEDS: METOPROLOL TARTRATE 50 MG TAB PO SCH ×2 (09:00→20:40)
[2017-01-22] MEDS: CHOLECALCIFEROL 1000 INTER.UNIT TAB PO SCH (09:01)
[2017-01-22] MEDS: ZONISAMIDE 100 MG CAP PO SCH ×2 (09:01→20:40)
[2017-01-22 09:05] VITALS: PULSE 69
--- NOTE | 2017-01-22 10:51 | PULMONARY PROGRESS NOTE ---
DATE: 01/22/2017 TIME: 10:05 a.m. SUBJECTIVE: The patient has had no problems since yesterday as per nursing staff. He denies any shortness of breath to me. He is not coughing. His vital signs have been good according to nursing. He has had no acute episodes of shortness of breath. OBJECTIVE: VITAL SIGNS: Temperature is 36.8. ENT: Exam is unchanged from prior. HEART: Heart rate is 62 per minute. The rhythm is regular and is normal sinus. Blood pressure is 102/59. LUNGS: Lung hair are clear bilaterally. Good breath sounds are heard. Respiratory rate is 16 breaths per minute and not labored. Oxygen saturation is 99% on 4 liter nasal cannula. ABDOMEN: Soft. He has very good bowel sounds. There is no tenderness to palpation. EXTREMITIES: Show no cyanosis, clubbing or edema. LABORATORY DATA: White count today is 5.9. He had been 11.29 on admission. Hemoglobin is down to 9.5 and had been 11 on admission. Platelet count is 191,000. Blood sugar this morning is 111. Electrolytes show sodium 141, potassium 3.9, chloride 109, bicarb 26. The BUN today is 31 with a creatinine of 1.8. Yesterday, the creatinine was 2.0. ASSESSMENT: 1. Acute respiratory failure with hypoxia -- improved. 2. Congestive heart failure. 3. Possible pneumonia. 4. Multiinfarct dementia. COMMENTS AND RECOMMENDATIONS: The patient seems to be stable clinically. Yesterday's chest x-ray in my opinion was a little worse, though the radiologist felt it was about the same. He will subsequently need followup x-rays. He is essentially asymptomatic. He remains on the Zosyn and levofloxacin. As his x-ray improves, these can be discontinued. In light of the fact the patient seems stable from a respiratory perspective, I will sign off for now. We would be happy to see him again if requested.
[2017-01-22] MEDS: RANITIDINE IV 50 MG in DEXTROSE 5% 100ML 100 ML IV SCH (11:38)
[2017-01-22 11:40] VITALS: BP 111/69; PULSE 67; TEMP 36.8; O2SAT 96
[2017-01-22 15:13] VITALS: BP 111/70; PULSE 65; O2SAT 96
[2017-01-22] MEDS: LEVOFLOXACIN / D5W 750 MG in PREMIXED IN D5W 150 ML IV SCH (18:10)
[2017-01-22 19:05] VITALS: BP 107/67; PULSE 56; TEMP 36.8; O2SAT 96
--- NOTE | 2017-01-22 20:23 | Progress Note ---
Medicine Progress Note Date & Time of Visit: Jan 22, 2017 at 15:20 . Subjective Cough and dyspnea improved. Still requiring supplemental oxygen. No fever. No chest pain. No nausea, vomiting, diarrhea. Daughter and grandson visiting. . Objective Last 8 Hrs Date Time Temp Pulse Resp B/P (MAP) Pulse Ox O2 Delivery O2 Flow Rate FiO2 01/22/17 20:00 Nasal Cannula 2.0 01/22/17 19:05 36.8 56 12 107/67 (80) 96 Nasal Cannula 2.0 01/22/17 16:00 Nasal Cannula 01/22/17 15:13 65 17 111/70 (84) 96 Room Air Physical Exam: General- lying in bed, no distress Neck- Lungs- few bibasilar rales, wheezing improved Heart- RRR, no gallop appreciated Abdomen- normal bowel sounds, soft, nontender Extremities- trace pretibial edema Neuro- alert, oriented, dysarthric . Laboratory Results: Last 24 Hours Test 01/21/17 20:56 01/22/17 05:30 01/22/17 06:53 01/22/17 11:09 Bedside Glucose 141 mg/dl 111 mg/dl 129 mg/dl White Blood Count 5.90 K/uL Red Blood Count 3.43 M/uL Hemoglobin 9.5 g/dL Hematocrit 29.4 % Mean Corpuscular Volume 85.7 fL Mean Corpuscular Hemoglobin 27.7 pg Mean Corpuscular Hemoglobin Concent 32.3 g/dl RDW Standard Deviation 42.8 fL RDW Coefficient of Variation 13.6 % Platelet Count 191 K/uL Mean Platelet Volume 11.1 fL Sodium Level 141 mmol/L Potassium Level 3.9 mmol/L Chloride Level 109 mmol/L Carbon Dioxide Level 26 mmol/L Anion Gap 6.0 mmol/L Blood Urea Nitrogen 31 mg/dl Creatinine 1.80 mg/dl Est Creatinine Clear Calc Drug Dose 49.2 ml/min Estimated GFR () 47.4 Estimated GFR (Non- 40.9 BUN/Creatinine Ratio 17.5 Random Glucose 99 mg/dl Calcium Level 8.1 mg/dl Test 01/22/17 15:47 01/22/17 20:07 Bedside Glucose 124 mg/dl 121 mg/dl Assessment & Plan ACUTE HYPOXIC RESPIRATORY FAILURE Diagnosed with pneumonia about 1 week prior to admission. Started on oxygen a few days prior to admission. Worsening oxygenation 01/19/17. Treating for pulmonary edema and possible pneumonia as discussed below. Oxygenation improved; weaned from Oxymask to [place]. Saturations remained stable on nasal cannula. No BiPAP or endotracheal intubation per discussion with patient and daughter. ELEVATED TROPONIN Seen in consultation by Cardiology. No chest pain. Serum troponins 3.110 --> --> 2.190. Total CPK and CPK-MB normal. No dramatic EKG changes. No wall motion abnormalities on echocardiogram. No strong evidence for PE. Troponin elevation probably nonspecific. PULMONARY EDEMA Chest x-ray at [place] [facility] and here on 01/19 demonstrated pulmonary edema. Echo showed normal LVEF of 55%. Probable acute left ventricular diastolic failure. IV furosemide ordered with improvement of symptoms, exam, chest x-ray, and oxygenation. Creatinine porfirio with diuresis. Diurese as tolerated. POSSIBLE PNEUMONIA / POSSIBLE ASPIRATION Diagnosed with pneumonia 1 week ago and treated with levofloxacin. Chest x-rays past few days show pulmonary edema, no obvious infiltrates. Afebrile. WBC 11,290 --> 5900. Procalcitonin normal, so sepsis unlikely. Nasal MRSA screen negative, so MRSA pneumonia unlikely. Treating with broad-spectrum antibiotic therapy with levofloxacin and piperacillin/tazobactam - day # 3 MACHINE GREASER performed bedside swallowing evaluation; no overt aspiration, but aspiration precautions recommended. ELEVATED D-DIMER At risk for thromboembolic disease due to inactivity/bed rest. Venous duplex lower extremities negative for DVT. No RV strain on echo. Serum creatinine 1.5 - 2.0 Prudent to avoid CTA due to risk of contrast nephropathy. VQ scan will most likely be nondiagnostic. Receiving SQ unfractionated heparin with therapeutic PTT. Most likely that hypoxia secondary to pulmonary edema, not pulmonary embolism. HYPERTENSION Continue metoprolol, diltiazem, clonidine. CKD Stage uncertain. Serum creatinine 1.6 @ [place] [facility] day prior to admission. Creatinine today = 1.8. Hold diuretics. Follow. DM TYPE 2 Reported history of diabetes, but not on any diabetic medications at this time. Well-controlled. Hgb A1C = 5.3. FBS 111. Follow. CEREBROVASCULAR DISEASE Neuro status at baseline. CT performed 01/18/17 at [facility] showed encephalomalacia, no acute events. SEIZURE DISORDER Phenytoin level 10. CHRONIC PAIN Continue fentanyl patch + Percocet PRN. VTE PROPHYLAXIS SQ heparin. RESUSCITATION STATUS DNR DISPOSITION Expected return to [facility] when medically stable. Daughter visiting and given update. . Consultants: Cardiology Pulmonary Medicine . Procedures: cardiac monitoring IV medications echo venous duplex lower extremities . Current Inpatient Medications: Current Inpatient Medications Medications (Trade) Dose Ordered Sig/Rafat Route Start Time Stop Time Status Last Admin Dose Admin Heparin Sodium (Porcine) (Heparin Sq 5000 Unit/0.5ml) 5,000 unit Q8H SQ 01/19/17 00:00 02/18/17 00:00 01/22/17 16:08 5,000 UNIT Potassium Chloride/Sodium Chloride 1,000 ml @ 75 mls/hr [id number] IV 01/18/17 22:00 02/17/17 21:59 Future Hold 01/19/17 11:38 75 MLS/HR Acetaminophen (Tylenol Tab) 650 mg Q4H PRN PO 01/18/17 22:00 02/17/17 21:59 Ondansetron HCl (Zofran Inj) 4 mg Q6H PRN IV 01/18/17 22:00 02/17/17 21:59 Aspirin (Ecotrin Tab) 81 mg DAILY PO 01/19/17 09:00 02/18/17 08:59 01/22/17 08:58 81 MG Bisacodyl (Dulcolax Tab) 10 mg DAILY PRN PO 01/19/17 09:00 02/18/17 08:59 Citalopram Hydrobromide (celeXA TAB) 30 mg DAILY PO 01/19/17 09:00 02/18/17 08:59 01/22/17 08:58 30 MG Diltiazem HCl (Cardizem Cd Cap) 240 mg Q12 PO 01/19/17 09:00 02/18/17 08:59 01/22/17 08:57 240 MG Docusate Sodium (coLACE CAP) 100 mg HS PO 01/19/17 21:00 02/18/17 20:59 01/21/17 20:41 100 MG Fentanyl (Duragesic Patch) 50 mcg Q72H TD 01/19/17 00:00 02/02/17 00:00 01/21/17 23:04 50 MCG Gabapentin (Neurontin Cap) 600 mg Q8 PO 01/19/17 06:00 02/18/17 05:59 01/22/17 14:51 600 MG Levetiracetam (Keppra Tab) 500 mg BID PO 01/19/17 09:00 02/18/17 08:59 01/22/17 08:59 500 MG Lorazepam (Ativan Tab) 0.25 mg HS PRN PO 01/18/17 23:15 02/17/17 23:14 01/19/17 00:04 0.25 MG Magnesium Hydroxide (Milk Of Magnesia Susp) 30 ml DAILY PRN PO 01/19/17 09:00 02/18/17 08:59 Nitroglycerin (Nitrostat Tab) 0.4 mg PRN [place] 01/18/17 23:15 02/17/17 23:14 Oxycodone/ Acetaminophen (Percocet 5-325mg Tab) 1 tab TID PRN PO 01/18/17 23:15 02/01/17 23:14 01/19/17 01:57 1 TAB Phenytoin Sodium (Dilantin Er Cap) 100 mg Q8 PO 01/19/17 06:00 02/18/17 05:59 01/22/17 14:48 100 MG Sodium Biphosphate/ Sodium Phosphate (Fleet Enema) 132 ml DAILY PRN [place] 01/19/17 09:00 02/18/17 08:59 Trazodone HCl (Desyrel Tab) 25 mg Q8 PO 01/19/17 06:00 02/18/17 05:59 01/22/17 14:48 25 MG Clonidine HCl (Catapres Tab) 0.2 mg Q12 PO 01/19/17 09:00 02/18/17 08:59 01/22/17 08:57 0.2 MG Pantoprazole Sodium (Protonix Tab) 40 mg PM PO 01/19/17 21:00 02/18/17 20:59 01/21/17 20:40 40 MG Zonisamide (Zonegran) 100 mg BID PO 01/19/17 09:00 02/18/17 08:59 01/22/17 09:01 100 MG Miscellaneous (Fentanyl Patch Remove & Waste) 1 ea Q3D N/A 01/19/17 00:00 02/18/17 00:00 01/21/17 23:04 1 EA Miscellaneous Information (Check Fentanyl Patch Placement) 1 ea QS N/A 01/19/17 00:00 02/18/17 00:00 01/22/17 16:11 1 EA Cholecalciferol (Vitamin D Tab) 5,000 inter.unit DAILY PO 01/19/17 09:00 02/18/17 08:59 01/22/17 09:01 5,000 INTER.UNIT Aripiprazole (Abilify Soln) 2 mg QAM PO 01/19/17 09:00 02/18/17 08:59 01/22/17 08:56 2 MG Clopidogrel Bisulfate (plAVix TAB) 75 mg QAM PO 01/19/17 09:00 02/18/17 08:59 01/22/17 09:00 75 MG Metoprolol Tartrate (Lopressor Tab) 50 mg BID PO 01/19/17 21:00 02/18/17 20:59 01/22/17 09:00 50 MG Atorvastatin Calcium (Lipitor Tab) 20 mg QAM PO 01/20/17 09:00 02/19/17 08:59 01/22/17 08:59 20 MG Lorazepam 0.25 mg/ Syringe 0.25 ml @ 0.5 mls/min Q6H PRN IV 01/19/17 15:00 02/18/17 14:59 Levofloxacin 750 mg/Prmx 150 ml @ 100 mls/hr Q24H IV 01/19/17 18:00 01/26/17 17:59 01/22/17 18:10 100 MLS/HR Levalbuterol (Xopenex 1.25MG/ 0.5ML Neb) 1.25 mg Q6R INH 01/19/17 21:00 02/18/17 20:59 01/21/17 07:17 1.25 MG Ipratropium [place] (Atrovent 0.02% 0.5MG/2.5ML Neb) 0.5 mg Q3H PRN INH 01/19/17 16:45 02/18/17 16:44 Levalbuterol (Xopenex 0.63 Mg/ 3 Ml Neb) 0.63 mg Q3H PRN INH 01/19/17 16:45 02/18/17 16:44 Piperacillin Sod/ Tazobactam Sod 3.375 gm/Dextrose 115 ml @ 28.75 mls/ hr Q8H IV 01/20/17 00:00 01/27/17 00:00 01/22/17 16:08 28.75 MLS/HR Levofloxacin (Consult) 1 ea UD PRN N/A 01/19/17 17:00 02/18/17 16:59 Piperacillin Sod/ Tazobactam Sod (Consult) 1 ea UD PRN N/A 01/19/17 17:00 02/18/17 16:59 Ranitidine HCl 50 mg/Dextrose 102 ml @ 200 mls/hr Q12H IV 01/20/17 00:00 02/19/17 00:00 01/22/17 11:38 200 MLS/HR Lansoprazole (Prevacid Solutab) 15 mg BID PO 01/20/17 09:00 02/19/17 08:59 01/22/17 09:00 15 MG Isosorbide Mononitrate (Imdur Ext Rel Tab) 15 mg QAM PO 01/21/17 09:00 02/20/17 08:59 01/22/17 08:59 15 MG
[2017-01-22] MEDS: DOCUSATE SODIUM 100 MG CAP PO SCH (20:40)
[2017-01-22] MEDS: PANTOprazole SOD 40 MG TAB PO SCH (20:40)
[2017-01-23] VITALS (9 sets, daily range): BP systolic 111–136; BP diastolic 70–77; PULSE 56–71; TEMP 36.5–36.9; O2SAT 95–99
[2017-01-23] MEDS: RANITIDINE IV 50 MG in DEXTROSE 5% 100ML 100 ML IV SCH ×2 (00:35→12:49)
[2017-01-23] MEDS: PIPERACILL/TAZOBAC IV 3.375 GM in DEXTROSE 5% 100ML IV SCH ×3 (00:35→17:23)
[2017-01-23] MEDS: HEPARIN SOD 5000 UNIT/0.5 ML CARP SQ SCH ×3 (00:36→17:19)
[2017-01-23] MEDS: TRAZODONE HCL 50 MG TAB PO SCH ×3 (05:29→20:56)
[2017-01-23] MEDS: PHENYTOIN SODIUM ER 100 MG CAP PO SCH ×3 (05:29→20:58)
[2017-01-23] MEDS: GABAPENTIN 300 MG CAP PO SCH ×3 (05:30→21:00)
[2017-01-23 05:46] LABS: HEMATOCRIT 29.9 % (42-52); MEAN CELL VOLUME 84.9 fL (80-100); MEAN CORPUSCULAR HEMOGLOBIN 27.8 pg (25-34); MEAN CORPUSCULAR HGB CONC 32.8 g/dl (32-36); MEAN PLATELET VOLUME 10.7 fL (7.4-10.4); PLATELET COUNT 213 K/uL (130-400); RED BLOOD COUNT 3.52 M/uL (4.7-6.1); WHITE BLOOD COUNT 6.69 K/uL (4.8-10.8)
[2017-01-23 06:18] LABS: BUN/CREATININE RATIO 16.6 (10-20); CALCIUM 8.1 mg/dl (8.5-10.1); CREATININE 1.7 mg/dl (0.60-1.40); MAGNESIUM 2.2 mg/dl (1.8-2.4)
--- NOTE | 2017-01-23 07:08 | DIAGNOSTIC IMAGING REPORT ---
CHEST ONE VIEW PORTABLE CLINICAL HISTORY: f/u pulmonary edema, possible pneumonia dyspnea COMPARISON STUDY: 01/21/2017 FINDINGS: Continued improvement in the appearance of the chest. Aeration of both hemithoraces is improved. Findings of pulmonary edema are considerably diminished. Small residual parenchymal infiltrate medial right base. IMPRESSION: Considerable improved exam. Small residual parenchymal infiltrate medial right base. The above report was generated using voice recognition software. It may contain grammatical, syntax or spelling errors. Electronically signed by: Shawn Chapman M.D. 01/23/2017 7:06 AM Dictated Date/Time: 01/23/2017 7:06 AM
[2017-01-23] MEDS: CHECK FENTANYL PATCH PLACEMENT SCH ×3 (08:00→16:00)
[2017-01-23] MEDS ORDERED: FUROSEMIDE 20 MG TAB PO SCH (09:00)
[2017-01-23] MEDS ORDERED: POTASSIUM CHLORIDE 20 MEQ TABCR PO SCH (09:00)
[2017-01-23] MEDS: ARIPIprazole 1 MG/ML ORAL SOLN 150 ML BTL PO SCH (09:22)
[2017-01-23] MEDS: CITALOPRAM 20 MG TAB PO SCH (09:24)
[2017-01-23] MEDS: ATORVASTATIN 20 MG TAB PO SCH (09:24)
[2017-01-23] MEDS: ASPIRIN 81 MG ECTAB PO SCH (09:24)
[2017-01-23] MEDS: CLONIDINE HCL 0.1 MG TAB PO SCH ×2 (09:25→20:59)
[2017-01-23] MEDS: CLOPIDOGREL BISULFATE 75 MG TAB PO SCH (09:25)
[2017-01-23] MEDS: METOPROLOL TARTRATE 50 MG TAB PO SCH ×2 (09:26→20:56)
[2017-01-23] MEDS: LANSOPRAZOLE SOLUTAB 15 MG PO SCH ×2 (09:26→20:57)
[2017-01-23] MEDS: ZONISAMIDE 100 MG CAP PO SCH ×2 (09:26→20:58)
[2017-01-23] MEDS: ISOSORBIDE MONONITRATE 30 MG TABCR PO SCH (09:27)
[2017-01-23] MEDS: LEVETIRACETAM 500 MG TAB PO SCH ×2 (09:27→20:57)
[2017-01-23] MEDS: CHOLECALCIFEROL 1000 INTER.UNIT TAB PO SCH (09:30)
[2017-01-23] MEDS: DILTIAZEM HCL 240 MG CAPCR PO SCH ×2 (09:33→20:55)
--- NOTE | 2017-01-23 10:04 | Progress Note ---
Medicine Progress Note Date & Time of Visit: Jan 23, 2017 at ~ 09:00 . Subjective No new problems / concerns. Afebrile. Cough and dyspnea improved. No chest pain. No nausea, vomiting, diarrhea. . Objective Last 8 Hrs Date Time Temp Pulse Resp B/P (MAP) Pulse Ox O2 Delivery O2 Flow Rate FiO2 01/23/17 07:36 36.8 57 20 132/76 (94) 98 Nasal Cannula 2.0 01/23/17 04:00 Nasal Cannula 2.0 01/23/17 03:59 36.9 65 19 114/72 (86) 95 Nasal Cannula 2.0 Physical Exam: General- lying in bed, no distress Neck- no JVD Lungs- essentially clear Heart- RRR Abdomen- normal bowel sounds, soft, nontender Extremities- trace pretibial edema Neuro- alert, oriented, dysarthric . Laboratory Results: Last 24 Hours Test 01/22/17 11:09 01/22/17 15:47 01/22/17 20:07 01/23/17 05:25 Bedside Glucose 129 mg/dl 124 mg/dl 121 mg/dl White Blood Count 6.69 K/uL Red Blood Count 3.52 M/uL Hemoglobin 9.8 g/dL Hematocrit 29.9 % Mean Corpuscular Volume 84.9 fL Mean Corpuscular Hemoglobin 27.8 pg Mean Corpuscular Hemoglobin Concent 32.8 g/dl RDW Standard Deviation 42.0 fL RDW Coefficient of Variation 13.6 % Platelet Count 213 K/uL Mean Platelet Volume 10.7 fL Sodium Level 139 mmol/L Potassium Level 4.0 mmol/L Chloride Level 107 mmol/L Carbon Dioxide Level 27 mmol/L Anion Gap 5.0 mmol/L Blood Urea Nitrogen 28 mg/dl Creatinine 1.70 mg/dl Est Creatinine Clear Calc Drug Dose 52.1 ml/min Estimated GFR () 50.8 Estimated GFR (Non- 43.8 BUN/Creatinine Ratio 16.6 Random Glucose 102 mg/dl Calcium Level 8.1 mg/dl Magnesium Level 2.2 mg/dl Test 01/23/17 06:51 Bedside Glucose 107 mg/dl Diagnostic Imaging: Chest x-ray reviewed by the undersigned and formally interpreted by Radiology: CHEST ONE VIEW PORTABLE FINDINGS: Continued improvement in the appearance of the chest. Aeration of both hemithoraces is improved. Findings of pulmonary edema are considerably diminished. Small residual parenchymal infiltrate medial right base. IMPRESSION: Considerable improved exam. Small residual parenchymal infiltrate medial right base. The above report was generated using voice recognition software. It may contain grammatical, syntax or spelling errors. Electronically signed by: Shawn Chapman M.D. 01/23/2017 7:06 AM . Assessment & Plan ACUTE HYPOXIC RESPIRATORY FAILURE Diagnosed with pneumonia about 1 week prior to admission. Started on oxygen a few days prior to admission. Worsening oxygenation 01/19/17. Treating for pulmonary edema and possible pneumonia as discussed below. Oxygenation improved; weaned from Oxymask to [place]. Saturations remained stable on nasal cannula. No BiPAP or endotracheal intubation per discussion with patient and daughter. ELEVATED TROPONIN Seen in consultation by Cardiology. No chest pain. Serum troponins 3.110 --> --> 2.190. Total CPK and CPK-MB normal. No dramatic EKG changes. No wall motion abnormalities on echocardiogram. No strong evidence for PE. Troponin elevation probably nonspecific. PULMONARY EDEMA Chest x-ray at [place] [facility] and here on 01/19 demonstrated pulmonary edema. Echo showed normal LVEF of 55%. Probable acute left ventricular diastolic failure. IV furosemide ordered with improvement of symptoms, exam, chest x-ray, and oxygenation. Creatinine porfirio with diuresis and furosemide held for a few days. Try starting furosemide 20 mg daily. Follow exam, weight, labs. POSSIBLE PNEUMONIA / POSSIBLE ASPIRATION Diagnosed with pneumonia 1 week ago and treated with levofloxacin. Chest x-rays past few days show pulmonary edema, no obvious infiltrates. Afebrile. WBC 11,290 --> 5900. Procalcitonin normal, so sepsis unlikely. Nasal MRSA screen negative, so MRSA pneumonia unlikely. Treating with broad-spectrum antibiotic therapy with levofloxacin and piperacillin/tazobactam - day # 4 MEDICAL BILLER/CODER performed bedside swallowing evaluation; no overt aspiration, but aspiration precautions recommended. ELEVATED D-DIMER At risk for thromboembolic disease due to inactivity/bed rest. Venous duplex lower extremities negative for DVT. No RV strain on echo. Serum creatinine 1.5 - 2.0 Prudent to avoid CTA due to risk of contrast nephropathy. VQ scan will most likely be nondiagnostic. Receiving SQ unfractionated heparin with therapeutic PTT. Most likely that hypoxia secondary to pulmonary edema, not pulmonary embolism. HYPERTENSION Continue metoprolol, diltiazem, clonidine. CKD Stage uncertain. Serum creatinine 1.6 @ [place] [facility] day prior to admission. Creatinine today = 1.7. Hold diuretics. Follow. DM TYPE 2 Reported history of diabetes, but not on any diabetic medications at this time. Well-controlled. Hgb A1C = 5.3. FBS 111. Follow. CEREBROVASCULAR DISEASE Neuro status at baseline. CT performed 01/18/17 at [facility] showed encephalomalacia, no acute events. SEIZURE DISORDER Phenytoin level 10. CHRONIC PAIN Continue fentanyl patch + Percocet PRN. ANEMIA Hgb 11.0 --> 9.8. ? baseline. No overt GI bleeding. Check Fe studies, B12, folate, fecal OB. Follow. VTE PROPHYLAXIS SQ heparin. RESUSCITATION STATUS DNR DISPOSITION Expected return to [place] when medically stable. . Consultants: Cardiology Pulmonary Medicine . Procedures: cardiac monitoring IV medications echo venous duplex lower extremities . Current Inpatient Medications: Current Inpatient Medications Medications (Trade) Dose Ordered Sig/Rafat Route Start Time Stop Time Status Last Admin Dose Admin Heparin Sodium (Porcine) (Heparin Sq 5000 Unit/0.5ml) 5,000 unit Q8H SQ 01/19/17 00:00 02/18/17 00:00 01/23/17 09:21 5,000 UNIT Potassium Chloride/Sodium Chloride 1,000 ml @ 75 mls/hr [id number] IV 01/18/17 22:00 02/17/17 21:59 Future Hold 01/19/17 11:38 75 MLS/HR Acetaminophen (Tylenol Tab) 650 mg Q4H PRN PO 01/18/17 22:00 02/17/17 21:59 Ondansetron HCl (Zofran Inj) 4 mg Q6H PRN IV 01/18/17 22:00 02/17/17 21:59 Aspirin (Ecotrin Tab) 81 mg DAILY PO 01/19/17 09:00 02/18/17 08:59 01/23/17 09:24 81 MG Bisacodyl (Dulcolax Tab) 10 mg DAILY PRN PO 01/19/17 09:00 02/18/17 08:59 Citalopram Hydrobromide (celeXA TAB) 30 mg DAILY PO 01/19/17 09:00 02/18/17 08:59 01/23/17 09:24 30 MG Diltiazem HCl (Cardizem Cd Cap) 240 mg Q12 PO 01/19/17 09:00 02/18/17 08:59 01/23/17 09:33 240 MG Docusate Sodium (coLACE CAP) 100 mg HS PO 01/19/17 21:00 02/18/17 20:59 01/22/17 20:40 100 MG Fentanyl (Duragesic Patch) 50 mcg Q72H TD 01/19/17 00:00 02/02/17 00:00 01/21/17 23:04 50 MCG Gabapentin (Neurontin Cap) 600 mg Q8 PO 01/19/17 06:00 02/18/17 05:59 01/23/17 05:30 600 MG Levetiracetam (Keppra Tab) 500 mg BID PO 01/19/17 09:00 02/18/17 08:59 01/23/17 09:27 500 MG Lorazepam (Ativan Tab) 0.25 mg HS PRN PO 01/18/17 23:15 02/17/17 23:14 01/19/17 00:04 0.25 MG Magnesium Hydroxide (Milk Of Magnesia Susp) 30 ml DAILY PRN PO 01/19/17 09:00 02/18/17 08:59 Nitroglycerin (Nitrostat Tab) 0.4 mg PRN [place] 01/18/17 23:15 02/17/17 23:14 Oxycodone/ Acetaminophen (Percocet 5-325mg Tab) 1 tab TID PRN PO 01/18/17 23:15 02/01/17 23:14 01/19/17 01:57 1 TAB Phenytoin Sodium (Dilantin Er Cap) 100 mg Q8 PO 01/19/17 06:00 02/18/17 05:59 01/23/17 05:29 100 MG Sodium Biphosphate/ Sodium Phosphate (Fleet Enema) 132 ml DAILY PRN [place] 01/19/17 09:00 02/18/17 08:59 Trazodone HCl (Desyrel Tab) 25 mg Q8 PO 01/19/17 06:00 02/18/17 05:59 01/23/17 05:29 25 MG Clonidine HCl (Catapres Tab) 0.2 mg Q12 PO 01/19/17 09:00 02/18/17 08:59 01/23/17 09:25 0.2 MG Pantoprazole Sodium (Protonix Tab) 40 mg PM PO 01/19/17 21:00 02/18/17 20:59 01/22/17 20:40 40 MG Zonisamide (Zonegran) 100 mg BID PO 01/19/17 09:00 02/18/17 08:59 01/23/17 09:26 100 MG Miscellaneous (Fentanyl Patch Remove & Waste) 1 ea Q3D N/A 01/19/17 00:00 02/18/17 00:00 01/21/17 23:04 1 EA Miscellaneous Information (Check Fentanyl Patch Placement) 1 ea QS N/A 01/19/17 00:00 02/18/17 00:00 01/23/17 08:00 1 EA Cholecalciferol (Vitamin D Tab) 5,000 inter.unit DAILY PO 01/19/17 09:00 02/18/17 08:59 01/23/17 09:30 5,000 INTER.UNIT Aripiprazole (Abilify Soln) 2 mg QAM PO 01/19/17 09:00 02/18/17 08:59 01/23/17 09:22 2 MG Clopidogrel Bisulfate (plAVix TAB) 75 mg QAM PO 01/19/17 09:00 02/18/17 08:59 01/23/17 09:25 75 MG Metoprolol Tartrate (Lopressor Tab) 50 mg BID PO 01/19/17 21:00 02/18/17 20:59 01/23/17 09:26 50 MG Atorvastatin Calcium (Lipitor Tab) 20 mg QAM PO 01/20/17 09:00 02/19/17 08:59 01/23/17 09:24 20 MG Lorazepam 0.25 mg/ Syringe 0.25 ml @ 0.5 mls/min Q6H PRN IV 01/19/17 15:00 02/18/17 14:59 Levofloxacin 750 mg/Prmx 150 ml @ 100 mls/hr Q24H IV 01/19/17 18:00 01/26/17 17:59 01/22/17 18:10 100 MLS/HR Levalbuterol (Xopenex 1.25MG/ 0.5ML Neb) 1.25 mg Q6R INH 01/19/17 21:00 02/18/17 20:59 01/21/17 07:17 1.25 MG Ipratropium [place] (Atrovent 0.02% 0.5MG/2.5ML Neb) 0.5 mg Q3H PRN INH 01/19/17 16:45 02/18/17 16:44 Levalbuterol (Xopenex 0.63 Mg/ 3 Ml Neb) 0.63 mg Q3H PRN INH 01/19/17 16:45 02/18/17 16:44 Piperacillin Sod/ Tazobactam Sod 3.375 gm/Dextrose 115 ml @ 28.75 mls/ hr Q8H IV 01/20/17 00:00 01/27/17 00:00 01/23/17 09:18 28.75 MLS/HR Levofloxacin (Consult) 1 ea UD PRN N/A 01/19/17 17:00 02/18/17 16:59 Piperacillin Sod/ Tazobactam Sod (Consult) 1 ea UD PRN N/A 01/19/17 17:00 02/18/17 16:59 Ranitidine HCl 50 mg/Dextrose 102 ml @ 200 mls/hr Q12H IV 01/20/17 00:00 02/19/17 00:00 01/23/17 00:35 200 MLS/HR Lansoprazole (Prevacid Solutab) 15 mg BID PO 01/20/17 09:00 02/19/17 08:59 01/23/17 09:26 15 MG Isosorbide Mononitrate (Imdur Ext Rel Tab) 15 mg QAM PO 01/21/17 09:00 02/20/17 08:59 01/23/17 09:27 15 MG Furosemide (Lasix Tab) 20 mg QAM PO 01/23/17 09:00 02/22/17 08:59 Potassium Chloride (Klor-Con Tab) 20 meq QAM PO 01/23/17 09:00 02/22/17 08:59
--- NOTE | 2017-01-23 12:45 | Cardiology Follow-Up ---
Subjective General Date of Service: Jan 23, 2017. Chief Complaint: follow up eleavted troponin, hypoxia Pt evaluation today including: conversation w/ patient, physical exam History of Present Illness The patient is a 56 year old male seen in follow up. Patient states he feels worse today. He is sad. CXR appears improved. Telemetry reveals stable SR. BP better. Allergies Coded Allergies: Morphine (Unverified Allergy, Unknown, UNKOWN , 01/18/17) UNABLE TO INTERVIEW PT, INFORMATION FROM [facility] Social History Smoking Status: Never Smoker Hx Tobacco Use In Past Year?: No Hx Alcohol Use - Type And Amou: No Hx Substance Use - Type And Am: No Physical Exam Vital Signs Last Vital Signs Documentation Date Time Temp Pulse Resp B/P (MAP) Pulse Ox O2 Delivery O2 Flow Rate FiO2 01/23/17 11:49 36.9 66 20 121/70 (87) 99 Nasal Cannula 2.0 Physical Exam Constitutional: General Apperance: heathly-appearing Level of Distress: NAD ENMT: normal ENT inspection Neck: supple Lungs: Auscultation: no wheezing, no rales/crackles, no rhonchi Cardiovascular: Heart Auscultation: RRR, no murmurs Abdomen: Inspection & Palpation: soft, non-distended Extremities: no cyanosis Assessment and Plan Assessment and Plan Impression 56 year old male SNF resident with 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 Elevated troponin with normal resting wall motion and LVEF on echo, no significant valve disease 2. Non ischemic EKG 3. No subjective symptoms of angina, but limited by cognitive impairment 4. hypoxia, pulmonary edema pattern on CXR vs pneumonia, clinically improved with furosemide x 1 and antibiotics 5. HTN 6. Possible pneumonia, aspiration risk Plan: Continue present therapy. Agree with low dose oral furosemide. Renal function is stable Continue SQ heparin for DVT prophylaxis. Emanuel Watson DO Laboratory Results Last 24 Hours Test 01/22/17 15:47 01/22/17 20:07 01/23/17 00:00 01/23/17 05:25 Bedside Glucose 124 mg/dl 121 mg/dl White Blood Count 6.69 K/uL Red Blood Count 3.52 M/uL Hemoglobin 9.8 g/dL Hematocrit 29.9 % Mean Corpuscular Volume 84.9 fL Mean Corpuscular Hemoglobin 27.8 pg Mean Corpuscular Hemoglobin Concent 32.8 g/dl RDW Standard Deviation 42.0 fL RDW Coefficient of Variation 13.6 % Platelet Count 213 K/uL Mean Platelet Volume 10.7 fL Sodium Level 139 mmol/L Potassium Level 4.0 mmol/L Chloride Level 107 mmol/L Carbon Dioxide Level 27 mmol/L Anion Gap 5.0 mmol/L Blood Urea Nitrogen 28 mg/dl Creatinine 1.70 mg/dl Est Creatinine Clear Calc Drug Dose 52.1 ml/min Estimated GFR () 50.8 Estimated GFR (Non- 43.8 BUN/Creatinine Ratio 16.6 Random Glucose 102 mg/dl Calcium Level 8.1 mg/dl Magnesium Level 2.2 mg/dl Test 01/23/17 06:51 01/23/17 11:48 Bedside Glucose 107 mg/dl 102 mg/dl
[2017-01-23] MEDS: LEVOFLOXACIN / D5W 750 MG in PREMIXED IN D5W 150 ML IV SCH (18:12)
[2017-01-23] MEDS: PANTOprazole SOD 40 MG TAB PO SCH (20:59)
[2017-01-23] MEDS: DOCUSATE SODIUM 100 MG CAP PO SCH (20:59)
[2017-01-24] VITALS (12 sets, daily range): BP systolic 99–127; BP diastolic 61–78; PULSE 58–66; TEMP 36.6–36.9; O2SAT 92–98
[2017-01-24] MEDS: PIPERACILL/TAZOBAC IV 3.375 GM in DEXTROSE 5% 100ML IV SCH ×3 (00:24→16:15)
[2017-01-24] MEDS: CHECK FENTANYL PATCH PLACEMENT SCH ×3 (00:25→16:15)
[2017-01-24] MEDS: RANITIDINE IV 50 MG in DEXTROSE 5% 100ML 100 ML IV SCH ×2 (00:25→12:23)
[2017-01-24] MEDS: HEPARIN SOD 5000 UNIT/0.5 ML CARP SQ SCH ×3 (00:26→16:13)
[2017-01-24] MEDS: TRAZODONE HCL 50 MG TAB PO SCH ×3 (05:32→20:06)
[2017-01-24] MEDS: GABAPENTIN 300 MG CAP PO SCH ×3 (05:32→20:05)
[2017-01-24] MEDS: PHENYTOIN SODIUM ER 100 MG CAP PO SCH ×2 (05:32→20:04)
[2017-01-24 05:55] LABS: HEMATOCRIT 32.2 % (42-52)
[2017-01-24 06:27] LABS: BUN/CREATININE RATIO 15.1 (10-20); CALCIUM 8.2 mg/dl (8.5-10.1); CREATININE 1.8 mg/dl (0.60-1.40); POTASSIUM 4.1 mmol/L (3.5-5.1)
[2017-01-24 06:32] LABS: FERRITIN 97.1 ng/ml (8.0-388.0)
[2017-01-24] MEDS: ARIPIprazole 1 MG/ML ORAL SOLN 150 ML BTL PO SCH (08:17)
[2017-01-24] MEDS: CITALOPRAM 20 MG TAB PO SCH (08:20)
[2017-01-24] MEDS: DILTIAZEM HCL 240 MG CAPCR PO SCH ×2 (08:20→20:07)
[2017-01-24] MEDS: CLONIDINE HCL 0.1 MG TAB PO SCH ×2 (08:21→20:07)
[2017-01-24] MEDS: CLOPIDOGREL BISULFATE 75 MG TAB PO SCH (08:22)
[2017-01-24] MEDS: ASPIRIN 81 MG ECTAB PO SCH (08:22)
[2017-01-24] MEDS: LEVETIRACETAM 500 MG TAB PO SCH ×2 (08:22→20:13)
[2017-01-24] MEDS: ATORVASTATIN 20 MG TAB PO SCH (08:22)
[2017-01-24] MEDS: LANSOPRAZOLE SOLUTAB 15 MG PO SCH ×2 (08:24→20:06)
[2017-01-24] MEDS: METOPROLOL TARTRATE 50 MG TAB PO SCH ×2 (08:25→20:06)
[2017-01-24] MEDS: CHOLECALCIFEROL 1000 INTER.UNIT TAB PO SCH (08:25)
[2017-01-24] MEDS: ISOSORBIDE MONONITRATE 30 MG TABCR PO SCH (09:33)
[2017-01-24] MEDS: ZONISAMIDE 100 MG CAP PO SCH ×2 (09:33→20:06)
--- NOTE | 2017-01-24 12:23 | Clinical Documentation Query ---
CARITO Barbour : CLINICAL DOCUMENTATION QUERY Patient is a 56 year old male admitted for evaluation of decreased food intake, weakness, chest pain 2 days prior, and troponinemia. Serum troponin on admission 3.110 ng/ml. EKG demonstrated a nonspecific ST abnormality. He is being treated with ASA, Plavix, Imdur, Cardizem, and Lopressor, monitored on telemetry, with echocardiogram and cardiology consultation. Documentation included "At this point, his troponin is definitely a marker of myocardial necrosis, but I do not have definite evidence that this is due to an acute coronary thrombosis." The term myocardial necrosis codes to NSTEMI per ICD-10 CMS coding guidelines. This documentation never recurred in the record. As appropriate, consider clarification/reintroduction as suggested below. In your clinical opinion is this patient being managed for: ( x ) (Possible/suspected) Myocardial necrosis (and/or NSTEMI) ( ) Other explanation of clinical findings (Please Explain) ( ) Unable to determine (Please Define) ( ) Need to Discuss ( ) Not Agree The medical record reflects the following clinical findings, treatment, and risk factors. Clinical Indicators: As above Treatment: He is being treated with ASA and Lopressor, monitored on telemetry, with echocardiogram and cardiology consultation pending. Risk Factors: Age, DM, hypertension, inactivity, gender Please clarify and document your clinical opinion in the progress notes and discharge summary. Terms such as "probable", "suspected", "likely", "questionable", "possible", or "still to be ruled out" are acceptable. IF IN AGREEMENT, YOU MUST DOCUMENT ABOVE DIAGNOSTIC STATEMENT IN DAILY PROGRESS NOTES AND DISCHARGE SUMMARY. This document is not part of the patient's record. Thank You, Edmond Bustos, RN [phone]
[2017-01-24] MEDS ORDERED: PHENYTOIN SODIUM ER 100 MG CAP PO STA (13:05)
[2017-01-24] MEDS ORDERED: NURSING VERBAL MED ORDER ONE (13:45)
[2017-01-24] MEDS ORDERED: POLYETHYLENE (MIRALAX) 17 GM PACK PO ONE ×2 (14:00→14:56)
[2017-01-24] MEDS ORDERED: POLYETHYLENE (MIRALAX) 17 GM PACK PO PRN (15:00)
[2017-01-24] MEDS ORDERED: BISACODYL 10 MG SUPP PR PRN (15:00)
[2017-01-24] MEDS: LEVOFLOXACIN / D5W 750 MG in PREMIXED IN D5W 150 ML IV SCH (18:13)
--- NOTE | 2017-01-24 18:25 | Progress Note ---
Medicine Progress Note Date & Time of Visit: Jan 24, 2017 at ~ 10:00 . Subjective No new problems. No fever. No cough or SOB. No chest pain. No nausea or vomiting. Last reported BM was 01/19. Still has Lance. . Objective Last 8 Hrs Date Time Temp Pulse Resp B/P (MAP) Pulse Ox O2 Delivery O2 Flow Rate FiO2 01/24/17 12:20 36.6 01/24/17 12:11 36.9 01/24/17 12:00 97 Nasal Cannula 2.0 01/24/17 11:33 63 20 110/64 (79) 98 Nasal Cannula 2.0 01/24/17 08:00 97 Room Air 2.0 01/24/17 07:25 36.7 66 20 126/69 (88) 97 Room Air Physical Exam: General- lying in bed, no distress Neck- no JVD Lungs-minimal wheezing Heart- RRR Abdomen- normal bowel sounds, soft, nontender Extremities- trace pretibial edema Neuro- alert, oriented, dysarthric . Laboratory Results: Last 24 Hours Test 01/23/17 16:01 01/23/17 20:10 01/24/17 05:12 01/24/17 12:00 Bedside Glucose 102 mg/dl 119 mg/dl Hemoglobin 10.4 g/dL Hematocrit 32.2 % Sodium Level 138 mmol/L Potassium Level 4.1 mmol/L Chloride Level 105 mmol/L Carbon Dioxide Level 27 mmol/L Anion Gap 6.0 mmol/L Blood Urea Nitrogen 27 mg/dl Creatinine 1.80 mg/dl Est Creatinine Clear Calc Drug Dose 50.1 ml/min Estimated GFR () 47.4 Estimated GFR (Non- 40.9 BUN/Creatinine Ratio 15.1 Random Glucose 100 mg/dl Calcium Level 8.2 mg/dl Iron Level 34 mcg/dl Total Iron Binding Capacity 283 mcg/dl Transferrin 187 mg/dl Transferrin % Saturation 13 % Ferritin 97.1 ng/ml Vitamin B12 Level 428 pg/mL Folate 10.26 ng/mL Phenytoin (Dilantin) Level 9.3 mcg/mL Assessment & Plan ACUTE HYPOXIC RESPIRATORY FAILURE Diagnosed with pneumonia about 1 week prior to admission. Started on oxygen a few days prior to admission. Worsening oxygenation 01/19/17. Treating for pulmonary edema and possible pneumonia as discussed below. Oxygenation improved; weaned from Oxymask to [place]. Saturations remained stable on nasal cannula. No BiPAP or endotracheal intubation per discussion with patient and daughter. ELEVATED TROPONIN Seen in consultation by Cardiology. No chest pain. Serum troponins 3.110 --> --> 2.190. Total CPK and CPK-MB normal. No dramatic EKG changes. No wall motion abnormalities on echocardiogram. No strong evidence for PE. Troponin elevation probably nonspecific. PULMONARY EDEMA Chest x-ray at [place] [facility] and here on 01/19 demonstrated pulmonary edema. Echo showed normal LVEF of 55%. Probable acute left ventricular diastolic failure. IV furosemide administered with improvement of symptoms, exam, chest x-ray, and oxygenation. Renal function volume sensitive. Try furosemide every other day. POSSIBLE PNEUMONIA / POSSIBLE ASPIRATION Diagnosed with pneumonia 1 week ago and treated with levofloxacin. Chest x-rays past few days show pulmonary edema, no obvious infiltrates. Afebrile. WBC 11,290 --> 5900. Procalcitonin normal, so sepsis unlikely. Nasal MRSA screen negative, so MRSA pneumonia unlikely. Treating with broad-spectrum antibiotic therapy with levofloxacin and piperacillin/tazobactam - day # 5 DOOR ATTENDANT performed bedside swallowing evaluation; no overt aspiration, but aspiration precautions recommended. ELEVATED D-DIMER At risk for thromboembolic disease due to inactivity/bed rest. Venous duplex lower extremities negative for DVT. No RV strain on echo. Serum creatinine 1.5 - 2.0 Prudent to avoid CTA due to risk of contrast nephropathy. VQ scan will most likely be nondiagnostic. Receiving SQ unfractionated heparin with therapeutic PTT. Most likely that hypoxia secondary to pulmonary edema, not pulmonary embolism. HYPERTENSION Continue metoprolol, diltiazem, clonidine. CKD Stage uncertain. Serum creatinine 1.6 @ [place] [facility] day prior to admission. Creatinine today = 1.8. Hold diuretics. Follow. DM TYPE 2 Reported history of diabetes, but not on any diabetic medications at this time. Well-controlled. Hgb A1C = 5.3. FBS 100. Follow. CEREBROVASCULAR DISEASE Neuro status at baseline. CT performed 01/18/17 at [facility] showed encephalomalacia, no acute events. SEIZURE DISORDER Phenytoin level 10. CHRONIC PAIN Continue fentanyl patch + Percocet PRN. ANEMIA Hgb 11.0 --> 9.8 --> --> 10.4. No overt GI bleeding. Fe 34, transferrin sat 13%, ferritin 97, B12 428, folate 10. Fecal OB pending. Follow. LANCE CATH DC CONSTIPATION MiraLAX PRN. VTE PROPHYLAXIS SQ heparin. RESUSCITATION STATUS DNR DISPOSITION Expected return to [place] when medically stable. . Consultants: Cardiology Pulmonary Medicine . Procedures: cardiac monitoring IV medications echo venous duplex lower extremities . Current Inpatient Medications: Current Inpatient Medications Medications (Trade) Dose Ordered Sig/Rafat Route Start Time Stop Time Status Last Admin Dose Admin Heparin Sodium (Porcine) (Heparin Sq 5000 Unit/0.5ml) 5,000 unit Q8H SQ 01/19/17 00:00 02/18/17 00:00 01/24/17 08:09 5,000 UNIT Potassium Chloride/Sodium Chloride 1,000 ml @ 75 mls/hr [id number] IV 01/18/17 22:00 02/17/17 21:59 Future Hold 01/19/17 11:38 75 MLS/HR Acetaminophen (Tylenol Tab) 650 mg Q4H PRN PO 01/18/17 22:00 02/17/17 21:59 01/24/17 11:40 650 MG Ondansetron HCl (Zofran Inj) 4 mg Q6H PRN IV 01/18/17 22:00 02/17/17 21:59 Aspirin (Ecotrin Tab) 81 mg DAILY PO 01/19/17 09:00 02/18/17 08:59 01/24/17 08:22 81 MG Bisacodyl (Dulcolax Tab) 10 mg DAILY PRN PO 01/19/17 09:00 02/18/17 08:59 Citalopram Hydrobromide (celeXA TAB) 30 mg DAILY PO 01/19/17 09:00 02/18/17 08:59 01/24/17 08:20 30 MG Diltiazem HCl (Cardizem Cd Cap) 240 mg Q12 PO 01/19/17 09:00 02/18/17 08:59 01/24/17 08:20 240 MG Docusate Sodium (coLACE CAP) 100 mg HS PO 01/19/17 21:00 02/18/17 20:59 01/23/17 20:59 100 MG Fentanyl (Duragesic Patch) 50 mcg Q72H TD 01/19/17 00:00 02/02/17 00:00 01/21/17 23:04 50 MCG Gabapentin (Neurontin Cap) 600 mg Q8 PO 01/19/17 06:00 02/18/17 05:59 01/24/17 14:06 600 MG Levetiracetam (Keppra Tab) 500 mg BID PO 01/19/17 09:00 02/18/17 08:59 01/24/17 08:22 500 MG Lorazepam (Ativan Tab) 0.25 mg HS PRN PO 01/18/17 23:15 02/17/17 23:14 01/19/17 00:04 0.25 MG Magnesium Hydroxide (Milk Of Magnesia Susp) 30 ml DAILY PRN PO 01/19/17 09:00 02/18/17 08:59 Nitroglycerin (Nitrostat Tab) 0.4 mg PRN [place] 01/18/17 23:15 02/17/17 23:14 Oxycodone/ Acetaminophen (Percocet 5-325mg Tab) 1 tab TID PRN PO 01/18/17 23:15 02/01/17 23:14 01/19/17 01:57 1 TAB Phenytoin Sodium (Dilantin Er Cap) 100 mg Q8 PO 01/19/17 06:00 02/18/17 05:59 Future hold 01/24/17 05:32 100 MG Sodium Biphosphate/ Sodium Phosphate (Fleet Enema) 132 ml DAILY PRN [place] 01/19/17 09:00 02/18/17 08:59 Trazodone HCl (Desyrel Tab) 25 mg Q8 PO 01/19/17 06:00 02/18/17 05:59 01/24/17 14:09 25 MG Clonidine HCl (Catapres Tab) 0.2 mg Q12 PO 01/19/17 09:00 02/18/17 08:59 01/24/17 08:21 0.2 MG Pantoprazole Sodium (Protonix Tab) 40 mg PM PO 01/19/17 21:00 02/18/17 20:59 01/23/17 20:59 40 MG Zonisamide (Zonegran) 100 mg BID PO 01/19/17 09:00 02/18/17 08:59 01/24/17 09:33 100 MG Miscellaneous (Fentanyl Patch Remove & Waste) 1 ea Q3D N/A 01/19/17 00:00 02/18/17 00:00 01/21/17 23:04 1 EA Miscellaneous Information (Check Fentanyl Patch Placement) 1 ea QS N/A 01/19/17 00:00 02/18/17 00:00 01/24/17 08:10 1 EA Cholecalciferol (Vitamin D Tab) 5,000 inter.unit DAILY PO 01/19/17 09:00 02/18/17 08:59 01/24/17 08:25 5,000 INTER.UNIT Aripiprazole (Abilify Soln) 2 mg QAM PO 01/19/17 09:00 02/18/17 08:59 01/24/17 08:17 2 MG Clopidogrel Bisulfate (plAVix TAB) 75 mg QAM PO 01/19/17 09:00 02/18/17 08:59 01/24/17 08:22 75 MG Metoprolol Tartrate (Lopressor Tab) 50 mg BID PO 01/19/17 21:00 02/18/17 20:59 01/24/17 08:25 50 MG Atorvastatin Calcium (Lipitor Tab) 20 mg QAM PO 01/20/17 09:00 02/19/17 08:59 01/24/17 08:22 20 MG Lorazepam 0.25 mg/ Syringe 0.25 ml @ 0.5 mls/min Q6H PRN IV 01/19/17 15:00 02/18/17 14:59 Levofloxacin 750 mg/Prmx 150 ml @ 100 mls/hr Q24H IV 01/19/17 18:00 01/26/17 17:59 01/23/17 18:12 100 MLS/HR Ipratropium [place] (Atrovent 0.02% 0.5MG/2.5ML Neb) 0.5 mg Q3H PRN INH 01/19/17 16:45 02/18/17 16:44 Levalbuterol (Xopenex 0.63 Mg/ 3 Ml Neb) 0.63 mg Q3H PRN INH 01/19/17 16:45 02/18/17 16:44 Piperacillin Sod/ Tazobactam Sod 3.375 gm/Dextrose 115 ml @ 28.75 mls/ hr Q8H IV 01/20/17 00:00 01/27/17 00:00 01/24/17 08:10 28.75 MLS/HR Levofloxacin (Consult) 1 ea UD PRN N/A 01/19/17 17:00 02/18/17 16:59 Piperacillin Sod/ Tazobactam Sod (Consult) 1 ea UD PRN N/A 01/19/17 17:00 02/18/17 16:59 Ranitidine HCl 50 mg/Dextrose 102 ml @ 200 mls/hr Q12H IV 01/20/17 00:00 02/19/17 00:00 01/24/17 12:23 200 MLS/HR Lansoprazole (Prevacid Solutab) 15 mg BID PO 01/20/17 09:00 02/19/17 08:59 01/24/17 08:24 15 MG Isosorbide Mononitrate (Imdur Ext Rel Tab) 15 mg QAM PO 01/21/17 09:00 02/20/17 08:59 01/24/17 09:33 15 MG
[2017-01-24] MEDS: PHENYTOIN 50 MG CHEW PO SCH (20:04)
[2017-01-24] MEDS: DOCUSATE SODIUM 100 MG CAP PO SCH (20:05)
[2017-01-24] MEDS: PANTOprazole SOD 40 MG TAB PO SCH (20:05)
[2017-01-25] VITALS (11 sets, daily range): BP systolic 111–146; BP diastolic 66–86; PULSE 60–73; TEMP 36.7–36.9; O2SAT 88–96
[2017-01-25] MEDS: PIPERACILL/TAZOBAC IV 3.375 GM in DEXTROSE 5% 100ML IV SCH ×4 (00:06→23:41)
[2017-01-25] MEDS: RANITIDINE IV 50 MG in DEXTROSE 5% 100ML 100 ML IV SCH ×3 (00:07→23:41)
[2017-01-25] MEDS: CHECK FENTANYL PATCH PLACEMENT SCH ×4 (00:07→23:44)
[2017-01-25] MEDS: FENTANYL PATCH REMOVE & WASTE SCH (00:10)
[2017-01-25] MEDS: FENTANYL 50 MCG/HR TDSY TD SCH (00:10)
[2017-01-25] MEDS: HEPARIN SOD 5000 UNIT/0.5 ML CARP SQ SCH ×4 (00:11→23:43)
[2017-01-25] MEDS: GABAPENTIN 300 MG CAP PO SCH ×3 (05:24→22:26)
[2017-01-25] MEDS: TRAZODONE HCL 50 MG TAB PO SCH ×3 (05:25→22:26)
[2017-01-25] MEDS: PHENYTOIN SODIUM ER 100 MG CAP PO SCH ×3 (05:26→22:26)
[2017-01-25 06:02] LABS: HEMATOCRIT 33.4 % (42-52)
[2017-01-25 06:43] LABS: BUN/CREATININE RATIO 14.3 (10-20); CALCIUM 8.5 mg/dl (8.5-10.1); CREATININE 1.9 mg/dl (0.60-1.40); POTASSIUM 3.9 mmol/L (3.5-5.1)
[2017-01-25] MEDS: ARIPIprazole 1 MG/ML ORAL SOLN 150 ML BTL PO SCH (08:05)
[2017-01-25] MEDS: ZONISAMIDE 100 MG CAP PO SCH ×2 (08:05→20:15)
[2017-01-25] MEDS: ISOSORBIDE MONONITRATE 30 MG TABCR PO SCH (08:07)
[2017-01-25] MEDS: LEVETIRACETAM 500 MG TAB PO SCH ×2 (08:08→20:14)
[2017-01-25] MEDS: LANSOPRAZOLE SOLUTAB 15 MG PO SCH ×2 (08:09→20:14)
[2017-01-25] MEDS: CHOLECALCIFEROL 1000 INTER.UNIT TAB PO SCH (08:10)
[2017-01-25] MEDS: CLONIDINE HCL 0.1 MG TAB PO SCH ×2 (08:10→22:25)
[2017-01-25] MEDS: METOPROLOL TARTRATE 50 MG TAB PO SCH ×2 (08:11→20:14)
[2017-01-25] MEDS: ATORVASTATIN 20 MG TAB PO SCH (08:11)
[2017-01-25] MEDS: ASPIRIN 81 MG ECTAB PO SCH (08:12)
[2017-01-25] MEDS: CLOPIDOGREL BISULFATE 75 MG TAB PO SCH (08:12)
[2017-01-25] MEDS: CITALOPRAM 20 MG TAB PO SCH (08:13)
[2017-01-25] MEDS: DILTIAZEM HCL 240 MG CAPCR PO SCH ×2 (08:14→22:24)
--- NOTE | 2017-01-25 13:09 | Progress Note ---
Medicine Progress Note Date & Time of Visit: Jan 25, 2017 at ~ 09:30 . Subjective Cheerful, no complaints. No fever. Oxygenating well on RA when awake, but desats into the 80's while sleeping. No fever. No cough or SOB. No chest pain. No nausea, vomiting, diarrhea. . Objective Last 8 Hrs Date Time Temp Pulse Resp B/P (MAP) Pulse Ox O2 Delivery O2 Flow Rate FiO2 01/25/17 11:31 36.9 64 16 118/71 (87) 95 Nasal Cannula 2.0 01/25/17 11:05 96 Nasal Cannula 2.0 01/25/17 10:46 36.9 64 16 95 2.0 01/25/17 10:45 96 Nasal Cannula 2.0 01/25/17 10:40 36.7 73 18 146/86 (106) 88 Room Air 01/25/17 08:00 93 Room Air 01/25/17 07:36 36.8 65 18 122/78 (93) 93 Room Air Physical Exam: General- lying in bed, no distress Neck- no JVD Lungs- essentially clear, minimal wheezing Heart- RRR Abdomen- normal bowel sounds, soft, nontender Extremities- trace pretibial edema Neuro- alert, oriented, dysarthric . Laboratory Results: Last 24 Hours Test 01/24/17 16:24 01/24/17 19:56 01/25/17 05:43 Bedside Glucose 89 mg/dl 135 mg/dl Hemoglobin 10.9 g/dL Hematocrit 33.4 % Sodium Level 139 mmol/L Potassium Level 3.9 mmol/L Chloride Level 108 mmol/L Carbon Dioxide Level 25 mmol/L Anion Gap 6.0 mmol/L Blood Urea Nitrogen 27 mg/dl Creatinine 1.90 mg/dl Est Creatinine Clear Calc Drug Dose 47.1 ml/min Estimated GFR () 44.4 Estimated GFR (Non- 38.3 BUN/Creatinine Ratio 14.3 Random Glucose 100 mg/dl Calcium Level 8.5 mg/dl Phenytoin (Dilantin) Level 13.2 mcg/mL Assessment & Plan ACUTE HYPOXIC RESPIRATORY FAILURE Diagnosed with pneumonia about 1 week prior to admission. Started on oxygen a few days prior to admission. Worsening oxygenation 01/19/17. Treating for pulmonary edema and possible pneumonia as discussed below. Oxygenation improved; weaned from Oxymask to NC. Saturations remained stable on nasal cannula. No BiPAP or endotracheal intubation per discussion with patient and daughter. Sats now in 90's on RA while awake, down to 80's while sleeping. Continue nocturnal O2. ELEVATED TROPONIN Seen in consultation by Cardiology. No chest pain. Serum troponins 3.110 --> --> 2.190. Total CPK and CPK-MB normal. No dramatic EKG changes. No wall motion abnormalities on echocardiogram. No strong evidence for PE. Troponin elevation probably nonspecific. PULMONARY EDEMA Chest x-ray at [place] [facility] and here on 01/19 demonstrated pulmonary edema. Echo showed normal LVEF of 55%. Probable acute left ventricular diastolic failure. IV furosemide administered with improvement of symptoms, exam, chest x-ray, and oxygenation. Renal function volume sensitive. POSSIBLE PNEUMONIA / POSSIBLE ASPIRATION Diagnosed with pneumonia 1 week ago and treated with levofloxacin. Chest x-rays past few days show pulmonary edema, no obvious infiltrates. Afebrile. WBC 11,290 --> 5900. Procalcitonin normal, so sepsis unlikely. Nasal MRSA screen negative, so MRSA pneumonia unlikely. Treating with broad-spectrum antibiotic therapy with levofloxacin and piperacillin/tazobactam - day # 6 EMERGENCY DEPARTMENT AIDE performed bedside swallowing evaluation; no overt aspiration, but aspiration precautions recommended. ELEVATED D-DIMER At risk for thromboembolic disease due to inactivity/bed rest. Venous duplex lower extremities negative for DVT. No RV strain on echo. Serum creatinine 1.5 - 2.0 Prudent to avoid CTA due to risk of contrast nephropathy. VQ scan will most likely be nondiagnostic. Receiving SQ unfractionated heparin with therapeutic PTT. Most likely that hypoxia secondary to pulmonary edema, not pulmonary embolism. HYPERTENSION Continue metoprolol, diltiazem, clonidine. CKD Stage uncertain. Serum creatinine 1.6 @ [facility] day prior to admission. Creatinine today = 1.9. Hold diuretics. Follow. DM TYPE 2 Reported history of diabetes, but not on any diabetic medications at this time. Well-controlled. Hgb A1C = 5.3. FBS 100 past 2 days. Follow. CEREBROVASCULAR DISEASE Neuro status at baseline. CT performed 01/18/17 at [facility] showed encephalomalacia, no acute events. SEIZURE DISORDER Phenytoin level 9.3 yesterday. Received extra phenytoin. Level today = 13. CHRONIC PAIN Continue fentanyl patch + Percocet PRN. ANEMIA Hgb 11.0 --> 9.8 --> --> 10.9. No overt GI bleeding. Fe 34, transferrin sat 13%, ferritin 97, B12 428, folate 10. Follow. LANCE CATH Lance removed. Voiding without difficulty. CONSTIPATION MiraLAX PRN. VTE PROPHYLAXIS SQ heparin. RESUSCITATION STATUS DNR DISPOSITION Expected return to [place] when medically stable. . Consultants: Cardiology Pulmonary Medicine . Procedures: cardiac monitoring IV medications echo venous duplex lower extremities . Current Inpatient Medications: Current Inpatient Medications Medications (Trade) Dose Ordered Sig/Rafat Route Start Time Stop Time Status Last Admin Dose Admin Heparin Sodium (Porcine) (Heparin Sq 5000 Unit/0.5ml) 5,000 unit Q8H SQ 01/19/17 00:00 02/18/17 00:00 01/25/17 08:07 5,000 UNIT Potassium Chloride/Sodium Chloride 1,000 ml @ 75 mls/hr [id number] IV 01/18/17 22:00 02/17/17 21:59 Future Hold 01/19/17 11:38 75 MLS/HR Acetaminophen (Tylenol Tab) 650 mg Q4H PRN PO 01/18/17 22:00 02/17/17 21:59 01/24/17 11:40 650 MG Ondansetron HCl (Zofran Inj) 4 mg Q6H PRN IV 01/18/17 22:00 02/17/17 21:59 Aspirin (Ecotrin Tab) 81 mg DAILY PO 01/19/17 09:00 02/18/17 08:59 01/25/17 08:12 81 MG Bisacodyl (Dulcolax Tab) 10 mg DAILY PRN PO 01/19/17 09:00 02/18/17 08:59 Citalopram Hydrobromide (celeXA TAB) 30 mg DAILY PO 01/19/17 09:00 02/18/17 08:59 01/25/17 08:13 30 MG Diltiazem HCl (Cardizem Cd Cap) 240 mg Q12 PO 01/19/17 09:00 02/18/17 08:59 01/25/17 08:14 240 MG Docusate Sodium (coLACE CAP) 100 mg HS PO 01/19/17 21:00 02/18/17 20:59 01/24/17 20:05 100 MG Fentanyl (Duragesic Patch) 50 mcg Q72H TD 01/19/17 00:00 02/02/17 00:00 01/25/17 00:10 50 MCG Gabapentin (Neurontin Cap) 600 mg Q8 PO 01/19/17 06:00 02/18/17 05:59 01/25/17 05:24 600 MG Levetiracetam (Keppra Tab) 500 mg BID PO 01/19/17 09:00 02/18/17 08:59 01/25/17 08:08 500 MG Lorazepam (Ativan Tab) 0.25 mg HS PRN PO 01/18/17 23:15 02/17/17 23:14 01/19/17 00:04 0.25 MG Magnesium Hydroxide (Milk Of Magnesia Susp) 30 ml DAILY PRN PO 01/19/17 09:00 02/18/17 08:59 Nitroglycerin (Nitrostat Tab) 0.4 mg PRN UT 01/18/17 23:15 02/17/17 23:14 Oxycodone/ Acetaminophen (Percocet 5-325mg Tab) 1 tab TID PRN PO 01/18/17 23:15 02/01/17 23:14 01/19/17 01:57 1 TAB Sodium Biphosphate/ Sodium Phosphate (Fleet Enema) 132 ml DAILY PRN SD 01/19/17 09:00 02/18/17 08:59 Trazodone HCl (Desyrel Tab) 25 mg Q8 PO 01/19/17 06:00 02/18/17 05:59 01/25/17 05:25 25 MG Clonidine HCl (Catapres Tab) 0.2 mg Q12 PO 01/19/17 09:00 02/18/17 08:59 01/25/17 08:10 0.2 MG Pantoprazole Sodium (Protonix Tab) 40 mg PM PO 01/19/17 21:00 02/18/17 20:59 01/24/17 20:05 40 MG Zonisamide (Zonegran) 100 mg BID PO 01/19/17 09:00 02/18/17 08:59 01/25/17 08:05 100 MG Miscellaneous (Fentanyl Patch Remove & Waste) 1 ea Q3D N/A 01/19/17 00:00 02/18/17 00:00 01/25/17 00:10 1 EA Miscellaneous Information (Check Fentanyl Patch Placement) 1 ea QS N/A 01/19/17 00:00 02/18/17 00:00 01/25/17 08:14 1 EA Cholecalciferol (Vitamin D Tab) 5,000 inter.unit DAILY PO 01/19/17 09:00 02/18/17 08:59 01/25/17 08:10 5,000 INTER.UNIT Aripiprazole (Abilify Soln) 2 mg QAM PO 01/19/17 09:00 02/18/17 08:59 01/25/17 08:05 2 MG Clopidogrel Bisulfate (plAVix TAB) 75 mg QAM PO 01/19/17 09:00 02/18/17 08:59 01/25/17 08:12 75 MG Metoprolol Tartrate (Lopressor Tab) 50 mg BID PO 01/19/17 21:00 02/18/17 20:59 01/25/17 08:11 50 MG Atorvastatin Calcium (Lipitor Tab) 20 mg QAM PO 01/20/17 09:00 02/19/17 08:59 01/25/17 08:11 20 MG Lorazepam 0.25 mg/ Syringe 0.25 ml @ 0.5 mls/min Q6H PRN IV 01/19/17 15:00 02/18/17 14:59 Levofloxacin 750 mg/Prmx 150 ml @ 100 mls/hr Q24H IV 01/19/17 18:00 01/26/17 17:59 01/24/17 18:13 100 MLS/HR Ipratropium [place] (Atrovent 0.02% 0.5MG/2.5ML Neb) 0.5 mg Q3H PRN INH 01/19/17 16:45 02/18/17 16:44 Levalbuterol (Xopenex 0.63 Mg/ 3 Ml Neb) 0.63 mg Q3H PRN INH 01/19/17 16:45 02/18/17 16:44 Piperacillin Sod/ Tazobactam Sod 3.375 gm/Dextrose 115 ml @ 28.75 mls/ hr Q8H IV 01/20/17 00:00 01/27/17 00:00 01/25/17 08:15 28.75 MLS/HR Levofloxacin (Consult) 1 ea UD PRN N/A 01/19/17 17:00 02/18/17 16:59 Piperacillin Sod/ Tazobactam Sod (Consult) 1 ea UD PRN N/A 01/19/17 17:00 02/18/17 16:59 Ranitidine HCl 50 mg/Dextrose 102 ml @ 200 mls/hr Q12H IV 01/20/17 00:00 02/19/17 00:00 01/25/17 12:47 200 MLS/HR Lansoprazole (Prevacid Solutab) 15 mg BID PO 01/20/17 09:00 02/19/17 08:59 01/25/17 08:09 15 MG Isosorbide Mononitrate (Imdur Ext Rel Tab) 15 mg QAM PO 01/21/17 09:00 02/20/17 08:59 01/25/17 08:07 15 MG Polyethylene (Miralax Powder Packet) 17 gm BID PRN PO 01/24/17 15:00 02/23/17 14:59 Bisacodyl (Dulcolax Supp) 10 mg DAILY PRN SD 01/24/17 15:00 02/23/17 14:59 Phenytoin (Dilantin Chew) 50 mg HS PO 01/24/17 21:00 02/23/17 20:59 01/24/17 20:04 50 MG Phenytoin Sodium (Dilantin Er Cap) 100 mg 0600,1400 PO 01/25/17 06:00 02/24/17 05:59 01/25/17 05:26 100 MG Phenytoin Sodium (Dilantin Er Cap) 100 mg HS PO 01/24/17 21:00 02/23/17 20:59 01/24/17 20:04 100 MG
[2017-01-25] MEDS: LEVOFLOXACIN / D5W 750 MG in PREMIXED IN D5W 150 ML IV SCH (17:55)
[2017-01-25] MEDS: DOCUSATE SODIUM 100 MG CAP PO SCH (22:25)
[2017-01-25] MEDS: PHENYTOIN 50 MG CHEW PO SCH (22:25)
[2017-01-25] MEDS: PANTOprazole SOD 40 MG TAB PO SCH (22:26)
[2017-01-26 00:42] VITALS: BP 127/83; PULSE 58; TEMP 36.5; O2SAT 98
[2017-01-26] MEDS: TRAZODONE HCL 50 MG TAB PO SCH ×3 (05:29→20:20)
[2017-01-26] MEDS: GABAPENTIN 300 MG CAP PO SCH ×3 (05:30→20:21)
[2017-01-26] MEDS: LANSOPRAZOLE SOLUTAB 15 MG PO SCH ×2 (05:32→20:15)
[2017-01-26] MEDS: PHENYTOIN SODIUM ER 100 MG CAP PO SCH ×3 (05:52→20:18)
[2017-01-26 07:03] LABS: HEMATOCRIT 32.2 % (42-52)
[2017-01-26 07:25] VITALS: BP 109/71; PULSE 53; TEMP 36.4; O2SAT 96
[2017-01-26 07:37] LABS: BUN/CREATININE RATIO 14.1 (10-20); CALCIUM 8.5 mg/dl (8.5-10.1); CREATININE 1.6 mg/dl (0.60-1.40)
[2017-01-26 09:00] VITALS: PULSE 70
[2017-01-26] MEDS ORDERED: POTASSIUM CHLORIDE 10 MEQ TABCR PO ONE (09:00)
[2017-01-26] MEDS: ASPIRIN 81 MG ECTAB PO SCH (09:22)
[2017-01-26] MEDS: ATORVASTATIN 20 MG TAB PO SCH (09:23)
[2017-01-26] MEDS: CHOLECALCIFEROL 1000 INTER.UNIT TAB PO SCH (09:23)
[2017-01-26] MEDS: CLOPIDOGREL BISULFATE 75 MG TAB PO SCH (09:23)
[2017-01-26] MEDS: CITALOPRAM 20 MG TAB PO SCH (09:23)
[2017-01-26] MEDS: LEVETIRACETAM 500 MG TAB PO SCH ×2 (09:23→20:16)
[2017-01-26] MEDS: ZONISAMIDE 100 MG CAP PO SCH ×2 (09:24→20:17)
[2017-01-26] MEDS: ISOSORBIDE MONONITRATE 30 MG TABCR PO SCH (09:24)
[2017-01-26] MEDS: METOPROLOL TARTRATE 50 MG TAB PO SCH ×2 (09:24→20:16)
[2017-01-26] MEDS: ARIPIprazole 1 MG/ML ORAL SOLN 150 ML BTL PO SCH (09:26)
[2017-01-26] MEDS: HEPARIN SOD 5000 UNIT/0.5 ML CARP SQ SCH ×2 (09:26→16:03)
[2017-01-26] MEDS: CHECK FENTANYL PATCH PLACEMENT SCH ×2 (09:27→16:01)
[2017-01-26] MEDS: FUROSEMIDE 20 MG TAB PO SCH (09:31)
[2017-01-26] MEDS: DILTIAZEM HCL 180 MG CAPCR PO SCH ×2 (09:31→20:17)
[2017-01-26] MEDS: PIPERACILL/TAZOBAC IV 3.375 GM in DEXTROSE 5% 100ML IV SCH ×2 (09:33→16:00)
--- NOTE | 2017-01-26 09:50 | Progress Note ---
Medicine Progress Note Date & Time of Visit: Jan 26, 2017 at 09:00 . Subjective No fever. No cough or SOB. No chest pain. No nausea or vomiting. No diarrhea. . Objective Last 8 Hrs Date Time Temp Pulse Resp B/P (MAP) Pulse Ox O2 Delivery O2 Flow Rate FiO2 01/26/17 07:25 36.4 53 16 109/71 (84) 96 Room Air Physical Exam: General- lying in bed, no distress Neck- no JVD Lungs- clear to auscultation Heart- RRR Abdomen- normal bowel sounds, soft, nontender Extremities- trace pretibial edema Neuro- alert, oriented, dysarthric . Laboratory Results: Last 24 Hours Test 01/25/17 16:29 01/25/17 19:47 01/26/17 06:45 01/26/17 07:35 Bedside Glucose 92 mg/dl 135 mg/dl 104 mg/dl Hemoglobin 10.6 g/dL Hematocrit 32.2 % Sodium Level 137 mmol/L Potassium Level 4.0 mmol/L Chloride Level 106 mmol/L Carbon Dioxide Level 25 mmol/L Anion Gap 6.0 mmol/L Blood Urea Nitrogen 23 mg/dl Creatinine 1.60 mg/dl Est Creatinine Clear Calc Drug Dose 55.5 ml/min Estimated GFR () 54.6 Estimated GFR (Non- 47.1 BUN/Creatinine Ratio 14.1 Random Glucose 99 mg/dl Calcium Level 8.5 mg/dl Assessment & Plan ACUTE HYPOXIC RESPIRATORY FAILURE Diagnosed with pneumonia about 1 week prior to admission. Started on oxygen a few days prior to admission. Worsening oxygenation 01/19/17. Treating for pulmonary edema and possible pneumonia as discussed below. Oxygenation improved; weaned from Oxymask to [place]. Saturations remained stable on nasal cannula. No BiPAP or endotracheal intubation per discussion with patient and daughter. Sats now in 90's on RA while awake, down to 80's while sleeping. Continue nocturnal O2. ELEVATED TROPONIN Seen in consultation by Cardiology. No chest pain. Serum troponins 3.110 --> --> 2.190. Total CPK and CPK-MB normal. No dramatic EKG changes. No wall motion abnormalities on echocardiogram. No strong evidence for PE. Troponin elevation probably nonspecific. PULMONARY EDEMA Chest x-ray at [place] [facility] and here on 01/19 demonstrated pulmonary edema. Echo showed normal LVEF of 55%. Probable acute left ventricular diastolic failure. IV furosemide administered with improvement of symptoms, exam, chest x-ray, and oxygenation. Renal function volume sensitive. POSSIBLE PNEUMONIA / POSSIBLE ASPIRATION Diagnosed with pneumonia 1 week ago and treated with levofloxacin. Chest x-rays past few days show pulmonary edema, no obvious infiltrates. Afebrile. WBC 11,290 --> 5900. Procalcitonin normal, so sepsis unlikely. Nasal MRSA screen negative, so MRSA pneumonia unlikely. Treating with broad-spectrum antibiotic therapy with levofloxacin and piperacillin/tazobactam - day # 7 SUSTAINABILITY PROJECT COORDINATOR performed bedside swallowing evaluation; no overt aspiration, but aspiration precautions recommended. ELEVATED D-DIMER At risk for thromboembolic disease due to inactivity/bed rest. Venous duplex lower extremities negative for DVT. No RV strain on echo. Serum creatinine 1.5 - 2.0 Prudent to avoid CTA due to risk of contrast nephropathy. VQ scan will most likely be nondiagnostic. Receiving SQ unfractionated heparin with therapeutic PTT. Most likely that hypoxia secondary to pulmonary edema, not pulmonary embolism. HYPERTENSION Continue metoprolol, diltiazem, clonidine. CKD Stage uncertain. Serum creatinine 1.6 @ [place] [facility] day prior to admission. Creatinine today = 1.6. Hold diuretics. Follow. DM TYPE 2 Reported history of diabetes, but not on any diabetic medications at this time. Well-controlled. Hgb A1C = 5.3. FBS 104. Follow. CEREBROVASCULAR DISEASE Neuro status at baseline. CT performed 01/18/[address] [facility] showed encephalomalacia, no acute events. SEIZURE DISORDER Phenytoin level 9.3 yesterday. Received extra phenytoin. Level 01/26 = 13. CHRONIC PAIN Continue fentanyl patch + Percocet PRN. ANEMIA Hgb 11.0 --> 9.8 --> --> 10.6. No overt GI bleeding. Fe 34, transferrin sat 13%, ferritin 97, B12 428, folate 10. Follow. LANCE CATH Lance removed. Voiding without difficulty. CONSTIPATION MiraLAX PRN. VTE PROPHYLAXIS SQ heparin. RESUSCITATION STATUS DNR DISPOSITION Expected return to [place] when medically stable. . Consultants: Cardiology Pulmonary Medicine . Procedures: cardiac monitoring IV medications echo venous duplex lower extremities . Current Inpatient Medications: Current Inpatient Medications Medications (Trade) Dose Ordered Sig/Rafat Route Start Time Stop Time Status Last Admin Dose Admin Heparin Sodium (Porcine) (Heparin Sq 5000 Unit/0.5ml) 5,000 unit Q8H SQ 01/19/17 00:00 02/18/17 00:00 01/26/17 09:26 5,000 UNIT Potassium Chloride/Sodium Chloride 1,000 ml @ 75 mls/hr [id number] IV 01/18/17 22:00 02/17/17 21:59 Future Hold 01/19/17 11:38 75 MLS/HR Acetaminophen (Tylenol Tab) 650 mg Q4H PRN PO 01/18/17 22:00 02/17/17 21:59 01/24/17 11:40 650 MG Ondansetron HCl (Zofran Inj) 4 mg Q6H PRN IV 01/18/17 22:00 02/17/17 21:59 Aspirin (Ecotrin Tab) 81 mg DAILY PO 01/19/17 09:00 02/18/17 08:59 01/26/17 09:22 81 MG Bisacodyl (Dulcolax Tab) 10 mg DAILY PRN PO 01/19/17 09:00 02/18/17 08:59 Citalopram Hydrobromide (celeXA TAB) 30 mg DAILY PO 01/19/17 09:00 02/18/17 08:59 01/26/17 09:23 30 MG Docusate Sodium (coLACE CAP) 100 mg HS PO 01/19/17 21:00 02/18/17 20:59 01/25/17 22:25 100 MG Fentanyl (Duragesic Patch) 50 mcg Q72H TD 01/19/17 00:00 02/02/17 00:00 01/25/17 00:10 50 MCG Gabapentin (Neurontin Cap) 600 mg Q8 PO 01/19/17 06:00 02/18/17 05:59 01/26/17 05:30 600 MG Levetiracetam (Keppra Tab) 500 mg BID PO 01/19/17 09:00 02/18/17 08:59 01/26/17 09:23 500 MG Lorazepam (Ativan Tab) 0.25 mg HS PRN PO 01/18/17 23:15 02/17/17 23:14 01/19/17 00:04 0.25 MG Magnesium Hydroxide (Milk Of Magnesia Susp) 30 ml DAILY PRN PO 01/19/17 09:00 02/18/17 08:59 Nitroglycerin (Nitrostat Tab) 0.4 mg PRN UT 01/18/17 23:15 02/17/17 23:14 Oxycodone/ Acetaminophen (Percocet 5-325mg Tab) 1 tab TID PRN PO 01/18/17 23:15 02/01/17 23:14 01/19/17 01:57 1 TAB Sodium Biphosphate/ Sodium Phosphate (Fleet Enema) 132 ml DAILY PRN AR 01/19/17 09:00 02/18/17 08:59 Trazodone HCl (Desyrel Tab) 25 mg Q8 PO 01/19/17 06:00 02/18/17 05:59 01/26/17 05:29 25 MG Clonidine HCl (Catapres Tab) 0.2 mg Q12 PO 01/19/17 09:00 02/18/17 08:59 01/25/17 22:25 0.2 MG Pantoprazole Sodium (Protonix Tab) 40 mg PM PO 01/19/17 21:00 02/18/17 20:59 01/25/17 22:26 40 MG Zonisamide (Zonegran) 100 mg BID PO 01/19/17 09:00 02/18/17 08:59 01/26/17 09:24 100 MG Miscellaneous (Fentanyl Patch Remove & Waste) 1 ea Q3D N/A 01/19/17 00:00 02/18/17 00:00 01/25/17 00:10 1 EA Miscellaneous Information (Check Fentanyl Patch Placement) 1 ea QS N/A 01/19/17 00:00 02/18/17 00:00 01/26/17 09:27 1 EA Cholecalciferol (Vitamin D Tab) 5,000 inter.unit DAILY PO 01/19/17 09:00 02/18/17 08:59 01/26/17 09:23 5,000 INTER.UNIT Aripiprazole (Abilify Soln) 2 mg QAM PO 01/19/17 09:00 02/18/17 08:59 01/26/17 09:26 2 MG Clopidogrel Bisulfate (plAVix TAB) 75 mg QAM PO 01/19/17 09:00 02/18/17 08:59 01/26/17 09:23 75 MG Metoprolol Tartrate (Lopressor Tab) 50 mg BID PO 01/19/17 21:00 02/18/17 20:59 01/26/17 09:24 50 MG Atorvastatin Calcium (Lipitor Tab) 20 mg QAM PO 01/20/17 09:00 02/19/17 08:59 01/26/17 09:23 20 MG Lorazepam 0.25 mg/ Syringe 0.25 ml @ 0.5 mls/min Q6H PRN IV 01/19/17 15:00 02/18/17 14:59 Levofloxacin 750 mg/Prmx 150 ml @ 100 mls/hr Q24H IV 01/19/17 18:00 01/26/17 17:59 01/25/17 17:55 100 MLS/HR Ipratropium [place] (Atrovent 0.02% 0.5MG/2.5ML Neb) 0.5 mg Q3H PRN INH 01/19/17 16:45 02/18/17 16:44 Levalbuterol (Xopenex 0.63 Mg/ 3 Ml Neb) 0.63 mg Q3H PRN INH 01/19/17 16:45 02/18/17 16:44 Piperacillin Sod/ Tazobactam Sod 3.375 gm/Dextrose 115 ml @ 28.75 mls/ hr Q8H IV 01/20/17 00:00 01/27/17 00:00 01/26/17 09:33 28.75 MLS/HR Piperacillin Sod/ Tazobactam Sod (Consult) 1 ea UD PRN N/A 01/19/17 17:00 01/27/17 00:00 Ranitidine HCl 50 mg/Dextrose 102 ml @ 200 mls/hr Q12H IV 01/20/17 00:00 02/19/17 00:00 01/25/17 23:41 200 MLS/HR Lansoprazole (Prevacid Solutab) 15 mg BID PO 01/20/17 09:00 02/19/17 08:59 01/26/17 05:32 15 MG Isosorbide Mononitrate (Imdur Ext Rel Tab) 15 mg QAM PO 01/21/17 09:00 02/20/17 08:59 01/26/17 09:24 15 MG Polyethylene (Miralax Powder Packet) 17 gm BID PRN PO 01/24/17 15:00 02/23/17 14:59 Bisacodyl (Dulcolax Supp) 10 mg DAILY PRN AR 01/24/17 15:00 02/23/17 14:59 Phenytoin (Dilantin Chew) 50 mg HS PO 01/24/17 21:00 02/23/17 20:59 01/25/17 22:25 50 MG Phenytoin Sodium (Dilantin Er Cap) 100 mg 0600,1400 PO 01/25/17 06:00 02/24/17 05:59 01/26/17 05:52 100 MG Phenytoin Sodium (Dilantin Er Cap) 100 mg HS PO 01/24/17 21:00 02/23/17 20:59 01/25/17 22:26 100 MG Diltiazem HCl (Cardizem Cd Cap) 180 mg BID PO 01/26/17 08:00 02/25/17 07:59 01/26/17 09:31 180 MG Furosemide (Lasix Tab) 20 mg TODAY@0900 PO 01/26/17 09:00 02/25/17 08:59 01/26/17 09:31 20 MG
[2017-01-26] MEDS: CLONIDINE HCL 0.1 MG TAB PO SCH ×2 (09:54→20:16)
[2017-01-26 15:55] VITALS: BP 142/94; PULSE 64; TEMP 36.9; O2SAT 92
[2017-01-26] MEDS: LORAZEPAM INJ 0.25 MG in SYRINGE 0.125 ML IV PRN (17:42)
[2017-01-26 20:13] VITALS: BP 146/85; PULSE 70
[2017-01-26] MEDS: DOCUSATE SODIUM 100 MG CAP PO SCH (20:14)
[2017-01-26] MEDS: PHENYTOIN 50 MG CHEW PO SCH (20:19)
[2017-01-26] MEDS: PANTOprazole SOD 40 MG TAB PO SCH (20:20)
[2017-01-27 00:01] VITALS: BP 135/79; PULSE 68; TEMP 37.3; O2SAT 97
[2017-01-27] MEDS: HEPARIN SOD 5000 UNIT/0.5 ML CARP SQ SCH ×2 (00:08→07:50)
[2017-01-27] MEDS: LORAZEPAM INJ 0.25 MG in SYRINGE 0.125 ML IV PRN (00:33)
[2017-01-27] MEDS: GABAPENTIN 300 MG CAP PO SCH (05:37)
[2017-01-27] MEDS: PHENYTOIN SODIUM ER 100 MG CAP PO SCH (05:38)
[2017-01-27] MEDS: TRAZODONE HCL 50 MG TAB PO SCH (05:38)
[2017-01-27 07:14] VITALS: BP 117/78; PULSE 66; TEMP 37; O2SAT 95
[2017-01-27] MEDS: ASPIRIN 81 MG ECTAB PO SCH (07:46)
[2017-01-27] MEDS: ATORVASTATIN 20 MG TAB PO SCH (07:46)
[2017-01-27] MEDS: CLONIDINE HCL 0.1 MG TAB PO SCH (07:47)
[2017-01-27] MEDS: LANSOPRAZOLE SOLUTAB 15 MG PO SCH (07:47)
[2017-01-27] MEDS: CITALOPRAM 20 MG TAB PO SCH (07:47)
[2017-01-27] MEDS: CLOPIDOGREL BISULFATE 75 MG TAB PO SCH (07:47)
[2017-01-27] MEDS: ZONISAMIDE 100 MG CAP PO SCH (07:47)
[2017-01-27] MEDS: METOPROLOL TARTRATE 50 MG TAB PO SCH (07:47)
[2017-01-27] MEDS: FUROSEMIDE 20 MG TAB PO SCH (07:48)
[2017-01-27] MEDS: ISOSORBIDE MONONITRATE 30 MG TABCR PO SCH (07:48)
[2017-01-27] MEDS: ARIPIprazole 1 MG/ML ORAL SOLN 150 ML BTL PO SCH (07:49)
[2017-01-27] MEDS: DILTIAZEM HCL 180 MG CAPCR PO SCH (07:49)
[2017-01-27] MEDS: CHECK FENTANYL PATCH PLACEMENT SCH ×2 (07:49)
[2017-01-27] MEDS: CHOLECALCIFEROL 1000 INTER.UNIT TAB PO SCH (07:50)
[2017-01-27] MEDS: LEVETIRACETAM 500 MG TAB PO SCH (07:50)
[2017-01-27] MEDS ORDERED: CHOL1TAB52 PO (10:16)
[2017-01-27] MEDS ORDERED: OXYC-57 PO ×2 (10:16→12:27)
[2017-01-27] MEDS ORDERED: CLX20 PO (10:16)
--- NOTE | 2017-01-27 11:13 | Progress Note ---
Medicine Progress Note Date & Time of Visit: Jan 27, 2017 at 10:30 . Subjective Doing well. No fever, cough, SOB, chest pain, nausea, vomiting, or other concerns. . Objective Last 8 Hrs Date Time Temp Pulse Resp B/P (MAP) Pulse Ox O2 Delivery O2 Flow Rate FiO2 01/27/17 07:14 37.0 66 20 117/78 (91) 95 Room Air Physical Exam: General- no distress Neck- no JVD Lungs- clear Heart- RRR Abdomen- normal bowel sounds, soft, nontender Extremities- trace pretibial edema; no calf tenderness Neuro- alert, oriented, dysarthric . Laboratory Results: Last 24 Hours Test 01/26/17 11:20 01/26/17 16:35 01/26/17 20:11 01/27/17 07:29 Bedside Glucose 112 mg/dl 118 mg/dl 116 mg/dl 102 mg/dl Assessment & Plan PULMONARY EDEMA / ACUTE ON CHRONIC LEFT VENTRICULAR DIASTOLIC HEART FAILURE Chest x-ray at [place] [facility] 01/18 and here on 01/19 demonstrated pulmonary edema. Records indicate history of systolic and diastolic CHF. Echo here 01/19/17 showed normal LVEF of 55%. Probable acute on chronic left ventricular diastolic heart failure. IV furosemide administered with improvement of symptoms, exam, chest x-ray, and oxygenation. Renal function volume sensitive. Discharge on furosemide 20 mg MWF. Follow symptoms, exam, weights, O2 sats, renal function. ACUTE HYPOXIC RESPIRATORY FAILURE Diagnosed with pneumonia about 1 week prior to admission. Started on oxygen a few days prior to admission. Worsening oxygenation 01/19/17. Treating for pulmonary edema and possible pneumonia as discussed below. Oxygenation improved; weaned from Oxymask to NC. Saturations remained stable on nasal cannula. No BiPAP or endotracheal intubation per discussion with patient and daughter. By discharge: sats in 90's on RA while awake, down to 80's while sleeping. Continue nocturnal O2 2 LPM. ELEVATED TROPONIN Seen in consultation by Cardiology. No chest pain. Serum troponins 3.110 --> --> 2.190. Total CPK and CPK-MB normal. No dramatic EKG changes. No wall motion abnormalities on echocardiogram. No strong evidence for PE. Troponin elevation probably nonspecific, secondary to CHF and/or pneumonia. POSSIBLE PNEUMONIA / POSSIBLE ASPIRATION Diagnosed with pneumonia 1 week ago and treated with levofloxacin. Chest x-rays past few days show pulmonary edema, no obvious infiltrates. Afebrile. WBC 11,290 --> 5900. Procalcitonin normal, so sepsis unlikely. Nasal MRSA screen negative, so MRSA pneumonia unlikely. Treating with broad-spectrum antibiotic therapy with levofloxacin and piperacillin/tazobactam x 7 days. RV REPAIR TECHNICIAN performed bedside swallowing evaluation; no overt aspiration, but aspiration precautions recommended. ELEVATED D-DIMER At risk for thromboembolic disease due to inactivity/bed rest. Venous duplex lower extremities negative for DVT. No RV strain on echo. Serum creatinine 1.5 - 2.0 Prudent to avoid CTA due to risk of contrast nephropathy. VQ scan would most likely be nondiagnostic. Receiving SQ unfractionated heparin with therapeutic PTT. Most likely that hypoxia secondary to pulmonary edema +/- pneumonia, not pulmonary embolism. HYPERTENSION Continue metoprolol, diltiazem, clonidine. Pulse rate low at times, so diltiazem dose decreased to 180 mg q 12 hrs. CKD Stage uncertain. Serum creatinine 1.6 @ [facility] day prior to admission. Creatinine 01/26 = 1.6. Hold diuretics. Follow. DM TYPE 2 History of diabetes, diet controlled. Well-controlled. Hgb A1C = 5.3. FBS 100. Follow. CEREBROVASCULAR DISEASE Neuro status at baseline. CT performed 01/18/17 at [facility] showed encephalomalacia, no acute events. Continue aspirin. SEIZURE DISORDER Phenytoin level 10 on 01/19. Level 9.3 on 01/24. Received extra dose and hs dose increased. Level 13 on 01/25. Discharge on phenytoin 100 mg BID + 150 mg HS. Recheck phenytoin level in about 1 week, then periodically as clinically indicated. Continue levetiracetam and zonisamide. CHRONIC PAIN Continue fentanyl patch + Percocet PRN. ANEMIA Hgb 11.0 --> 9.8 --> --> 10.6. No overt GI bleeding. Fe 34, transferrin sat 13%, ferritin 97, B12 428, folate 10. Follow. VTE PROPHYLAXIS SQ heparin. RESUSCITATION STATUS DNR DISPOSITION Arrangements being made for return to [place]. . Consultants: Cardiology Pulmonary Medicine . Procedures: cardiac monitoring IV medications echo venous duplex lower extremities . Current Inpatient Medications: Current Inpatient Medications Medications (Trade) Dose Ordered Sig/Rafat Route Start Time Stop Time Status Last Admin Dose Admin Heparin Sodium (Porcine) (Heparin Sq 5000 Unit/0.5ml) 5,000 unit Q8H SQ 01/19/17 00:00 02/18/17 00:00 01/27/17 07:50 5,000 UNIT Potassium Chloride/Sodium Chloride 1,000 ml @ 75 mls/hr [id number] IV 01/18/17 22:00 02/17/17 21:59 Future Hold 01/19/17 11:38 75 MLS/HR Acetaminophen (Tylenol Tab) 650 mg Q4H PRN PO 01/18/17 22:00 02/17/17 21:59 01/24/17 11:40 650 MG Ondansetron HCl (Zofran Inj) 4 mg Q6H PRN IV 01/18/17 22:00 02/17/17 21:59 Aspirin (Ecotrin Tab) 81 mg DAILY PO 01/19/17 09:00 02/18/17 08:59 01/27/17 07:46 81 MG Bisacodyl (Dulcolax Tab) 10 mg DAILY PRN PO 01/19/17 09:00 02/18/17 08:59 Citalopram Hydrobromide (celeXA TAB) 30 mg DAILY PO 01/19/17 09:00 02/18/17 08:59 01/27/17 07:47 30 MG Docusate Sodium (coLACE CAP) 100 mg HS PO 01/19/17 21:00 02/18/17 20:59 01/26/17 20:14 100 MG Fentanyl (Duragesic Patch) 50 mcg Q72H TD 01/19/17 00:00 02/02/17 00:00 01/25/17 00:10 50 MCG Gabapentin (Neurontin Cap) 600 mg Q8 PO 01/19/17 06:00 02/18/17 05:59 01/27/17 05:37 600 MG Levetiracetam (Keppra Tab) 500 mg BID PO 01/19/17 09:00 02/18/17 08:59 01/27/17 07:50 500 MG Lorazepam (Ativan Tab) 0.25 mg HS PRN PO 01/18/17 23:15 02/17/17 23:14 01/19/17 00:04 0.25 MG Magnesium Hydroxide (Milk Of Magnesia Susp) 30 ml DAILY PRN PO 01/19/17 09:00 02/18/17 08:59 Nitroglycerin (Nitrostat Tab) 0.4 mg PRN UT 01/18/17 23:15 02/17/17 23:14 Oxycodone/ Acetaminophen (Percocet 5-325mg Tab) 1 tab TID PRN PO 01/18/17 23:15 02/01/17 23:14 01/19/17 01:57 1 TAB Sodium Biphosphate/ Sodium Phosphate (Fleet Enema) 132 ml DAILY PRN IA 01/19/17 09:00 02/18/17 08:59 Trazodone HCl (Desyrel Tab) 25 mg Q8 PO 01/19/17 06:00 02/18/17 05:59 01/27/17 05:38 25 MG Clonidine HCl (Catapres Tab) 0.2 mg Q12 PO 01/19/17 09:00 02/18/17 08:59 01/27/17 07:47 0.2 MG Pantoprazole Sodium (Protonix Tab) 40 mg PM PO 01/19/17 21:00 02/18/17 20:59 01/26/17 20:20 40 MG Zonisamide (Zonegran) 100 mg BID PO 01/19/17 09:00 02/18/17 08:59 01/27/17 07:47 100 MG Miscellaneous (Fentanyl Patch Remove & Waste) 1 ea Q3D N/A 01/19/17 00:00 02/18/17 00:00 01/25/17 00:10 1 EA Miscellaneous Information (Check Fentanyl Patch Placement) 1 ea QS N/A 01/19/17 00:00 02/18/17 00:00 01/27/17 07:49 1 EA Cholecalciferol (Vitamin D Tab) 5,000 inter.unit DAILY PO 01/19/17 09:00 02/18/17 08:59 01/27/17 07:50 5,000 INTER.UNIT Aripiprazole (Abilify Soln) 2 mg QAM PO 01/19/17 09:00 02/18/17 08:59 01/27/17 07:49 2 MG Clopidogrel Bisulfate (plAVix TAB) 75 mg QAM PO 01/19/17 09:00 02/18/17 08:59 01/27/17 07:47 75 MG Metoprolol Tartrate (Lopressor Tab) 50 mg BID PO 01/19/17 21:00 02/18/17 20:59 01/27/17 07:47 50 MG Atorvastatin Calcium (Lipitor Tab) 20 mg QAM PO 01/20/17 09:00 02/19/17 08:59 01/27/17 07:46 20 MG Lorazepam 0.25 mg/ Syringe 0.25 ml @ 0.5 mls/min Q6H PRN IV 01/19/17 15:00 02/18/17 14:59 01/27/17 00:33 0.5 MLS/MIN Ipratropium [place] (Atrovent 0.02% 0.5MG/2.5ML Neb) 0.5 mg Q3H PRN INH 01/19/17 16:45 02/18/17 16:44 Levalbuterol (Xopenex 0.63 Mg/ 3 Ml Neb) 0.63 mg Q3H PRN INH 01/19/17 16:45 02/18/17 16:44 Lansoprazole (Prevacid Solutab) 15 mg BID PO 01/20/17 09:00 02/19/17 08:59 01/27/17 07:47 15 MG Isosorbide Mononitrate (Imdur Ext Rel Tab) 15 mg QAM PO 01/21/17 09:00 02/20/17 08:59 01/27/17 07:48 15 MG Polyethylene (Miralax Powder Packet) 17 gm BID PRN PO 01/24/17 15:00 02/23/17 14:59 Bisacodyl (Dulcolax Supp) 10 mg DAILY PRN [place] 01/24/17 15:00 02/23/17 14:59 Phenytoin (Dilantin Chew) 50 mg HS PO 01/24/17 21:00 02/23/17 20:59 01/26/17 20:19 50 MG Phenytoin Sodium (Dilantin Er Cap) 100 mg 0600,1400 PO 01/25/17 06:00 02/24/17 05:59 01/27/17 05:38 100 MG Phenytoin Sodium (Dilantin Er Cap) 100 mg HS PO 01/24/17 21:00 02/23/17 20:59 01/26/17 20:18 100 MG Diltiazem HCl (Cardizem Cd Cap) 180 mg BID PO 01/26/17 08:00 02/25/17 07:59 01/27/17 07:49 180 MG Furosemide (Lasix Tab) 20 mg TODAY@0900 PO 01/26/17 09:00 02/25/17 08:59 01/27/17 07:48 20 MG
[2017-01-27] MEDS ORDERED: DLN50 PO (11:22)
[2017-01-27] MEDS ORDERED: LPT20 PO (11:22)
[2017-01-27] MEDS ORDERED: CRDCD180 PO (11:22)
[2017-01-27] MEDS ORDERED: IMDSR30 PO (11:22)
[2017-01-27] MEDS ORDERED: METO50TA16 PO (11:22)
--- NOTE | 2017-01-27 11:32 | Discharge Instructions ---
Discharge Instructions Date of Service Jan 27, 2017. Admission Reason for Admission: elevated troponin . Discharge Discharge Diagnosis / Problem: acute on chronic left ventricular diastolic heart failure Discharge Goals Goal(s): Decrease discomfort, Improve function, Increase independence, Improve disease control Activity Recommendations Activity Level: Assistance Required . Additional Information Patient informed of condition: Yes Advance Directives: Yes DNR: Yes Level of Care: Skilled Communicable Disease: No Prognosis: Improving Oxygen at (LPM): nocturnal O2 2 LPM by nasal cannula; PRN during day for O2 sat < 90 [place] Catheter: No Instructions / Follow-Up Instructions / Follow-Up Thank you for receiving this patient in transfer. Please call if you have any questions. Ministerio Sarabia . Current Hospital Diet Patient's current hospital diet: Diabetes Type 2 Diet, AHA Diet (Heart Healthy) Discharge Diet Recommended Diet: AHA Diet (Heart Healthy) Diet Texture: Mechanical Soft (ground) Pending Studies Studies pending at discharge: no Physician Orders On Transfer Special Precautions: aspiration precautions fall precautions skin precautions delirium precautions . Vital Signs: routine . Weigh: daily . Additional Orders: Reposition at least q 2 hrs. Please check basic metabolic profile and phenytoin level in 1 week, then as clinically indicated. Speech Therapy Discharge Instructions * If patient is not at baseline re: communication when he returns to SNF, he could have OUTREACH CONSULTANT services treat him at SNF to improve his ability to communicate in his home environment with his regular caregivers. Continue Regular diet with feeding assistance and basic aspiration precautions. Oral Hygiene: To minimize oral bacteria the patient could be at risk of aspirating it is important to clean all surfaces of mouth with soft toothbrush and toothpaste PRIOR TO oral intake in the morning, after meals, and before going to sleep for the night. . Laboratory Results Hemoglobin A1c Test 01/20/17 05:33 Range/Units Estimated Average Glucose 105 mg/dl Hemoglobin A1c 5.3 4.5-5.6 % Medical Emergencies . Who to Call and When: Medical Emergencies: If at any time you feel your situation is an emergency, please call 911 immediately. . Non-Emergent Contact Non-Emergency issues call your: Primary Care Provider, Hospital Doctor . . "Provider Documentation" section prepared by Ministerio Sarabia. . Core Measure Problem Core Measures: None [place] Drug Monitoring Program Search Results: patient reviewed within database, no issues identified ( chronic pain syndrome appropriately managed)
--- NOTE | 2017-01-27 11:38 | Discharge Summary ---
Discharge Summary Date of Service Jan 27, 2017. Discharge Summary Admission Date: Jan 18, 2017 at 20:56 Discharge Date: Jan 27, 2017 [facility]charge Disposition: [facility] ([facility] Principal Diagnosis: acute on chronic left ventricular diastolic heart failure elevated troponin without evidence of acute myocardial infarction acute respiratory failure / pulmonary edema possible pneumonia nocturnal hypoxia . Secondary Diagnoses/Problems: Chronic and Resolved Medical Problems: (1) Cerebrovascular disease Permanent Comment: s/p multiple strokes Status: Chronic (2) Chronic back pain Status: Chronic (3) CKD (chronic kidney disease), stage III Status: Chronic (4) Depression Status: Chronic (5) Diabetes mellitus type 2, controlled Permanent Comment: diet controlled Status: Chronic (6) Diastolic CHF, chronic Status: Chronic (7) Essential hypertension Status: Chronic (8) History of duodenal ulcer Status: Chronic (9) Multi-infarct dementia Status: Chronic (10) Seizure disorder Status: Chronic Surgical Problems: (1) Status post resection brain tumor Permanent Comment: 2007, reportedly benign Status: Chronic . Procedures: cardiac monitoring IV medications echo venous duplex lower extremities . Consultations: Cardiology Pulmonary Medicine . Medication Reconciliation New Medications: Furosemide (Furosemide) 20 Mg Tab 20 MG PO 3XWK for 30 Days On Mon-Wed-Fri. Potassium Chloride (Micro-K Ext Rel) 10 Meq Capcr 10 MEQ PO DAILY for 30 Days, CAP Atorvastatin (Atorvastatin Calcium) 20 Mg Tab 20 MG PO QAM for 30 Days, TAB Diltiazem HCl (Diltiazem HCl ER) 180 Mg Capcr 180 MG PO BID for 30 Days Hold HR < 55 or sys BP < 100. Isosorbide Mononitrate (Isosorbide Mononitrate ER) 30 Mg Tabcr 15 MG PO QAM for 30 Days Hold systolic BP < 100. Metoprolol Tartrate (Lopressor) (Lopressor) 50 Mg Tab 50 MG PO BID for 30 Days, TAB Hold HR < 55 or sys BP < 100. Phenytoin (Dilantin Infatabs) 50 Mg Chew 50 MG PO HS for 30 Days Take with 100 mg for total dose of 150 mg HS. Continued Medications: Albuterol Sulf (Proventil 0.083% 2.5MG/3ML) 2.5 Mg/3 Ml Nebu 2.5 MG INH Q4, EA Aripiprazole (Abilify) 2 Mg Tab 2 MG PO DAILY, TAB Aspirin (Aspirin Ec) 81 Mg Tab 81 MG PO DAILY Bisacodyl (Dulcolax) 5 Mg Tab 10 MG RE UD for 1 Day, #2 TAB INSERT SUPPOSITORY RECTALLY, NO RESULTS ON 2ND SHIFT Cholecalciferol (D 5000) 5,000 Unit Tab 5000 UNITS PO DAILY Citalopram (Citalopram Hydrobromide) 20 Mg Tab 30 MG PO QAM, TAB 1.5 tab = 30 mg Clonidine Hcl (Catapres) 0.2 Mg Tab 0.2 MG PO Q12, TAB q 12 hrs at 0900 + 2100 Cyanocobalamin (Cyanocobalamin) 1,000 Mcg/Ml Inj 1000 MCG IM MONTHLY Docusate Sodium (Colace) 100 Mg Cap 100 MG PO HS, CAP Fentanyl (Duragesic) 50 Mcg Tdsy 50 MCG TD [id number], PATCH Next change HS 01/27/17. Gabapentin (Neurontin) 300 Mg Cap 600 MG PO Q8, CAP Levetiracetam (Keppra) 500 Mg Tab 500 MG PO BID, TAB Lorazepam (Ativan) 0.5 Mg Tab 0.25 MG PO HS, TAB Magnesium Hydroxide (Milk Of Magnesia) 30 Ml Susp 30 ML PO DAILY, ML TAKE 30ML BY MOUTH 1ST SHIFT IF NO RESULTS EXCEPT FOR A DIALYSIS RESIDENT OR RESIDENT WITH ESRD Melatonin ( Melatonin) 3 Mg Tab 1 TAB PO HS for 30 Days, #30 TAB Nitroglycerin (Nitrostat) 0.4 Mg Tab 0.4 MG UT PRN, BTL TAKE 0.4MG SL PRN FOR CHEST PAIN, ONE TABLET EVERY FIVE MINUTES FOR THREE DOSES IF INEFFECTIVE FOR CHEST PAIN, CALL Omeprazole (Prilosec) 20 Mg Capcr 20 MG PO DAILY, CAP at least 30 min before breakfast Oxycodone/Acetaminophen 5MG/325MG (Percocet 5MG/325MG) Tab 1 TABLET PO TID, TAB PAIN Oxycodone/Acetaminophen 5MG/325MG (Percocet 5MG/325MG) Tab 1 TABLET PO Q6H PRN for Pain, TAB Phenytoin Sodium (Dilantin) 100 Mg Cap 100 MG PO TID, CAP Take HS dose with 50 mg for total dose of 150 mg HS. Sodium Phosphates (Fleet Enema Six Pack) 1 Shanna Shanna 1 DOSE RE UD ONE DOSE RECTALLY NEEDED NO RESULTS ON 3RD SHIFT EXCEPT FOR A DIALYSIS RESIDENT OF RESIDENT WITH ESRD Trazodone Hcl (Trazodone) 50 Mg Tab 25 MG PO TID, TAB Zonisamide (Zonegran) 100 Mg Cap 100 MG PO BID, CAP Discontinued Medications: Diltiazem Hcl Coated Beads (Cardizem Cd) 240 Mg Cap 240 MG PO Q12, CAP q 12 hrs at 0900 + 2100 Levofloxacin (Levaquin) 500 Mg Tab 500 MG PO DAILY for 10 Days, #10 TAB Metoprolol Tartrate (Lopressor) (Lopressor) 25 Mg Tab 25 MG PO Q12, TAB Admission Information HPI (per Admitting provider): He is a 56-year-old male with significant past medical history including seizure disorder, history of multiinfarct dementia and almost bedbound, diabetes, depression with chronic back pain.He resides in [facility] [place]. The history was taken from the daughter and to some extent from the patient himself. Two weeks ago, the patient has had speech garbled and that has been worsening. He was noted to have decreased saturation with shortness of breath and chest x-ray did show pneumonia about 1 week ago, and he has been on Levaquin for the pneumonia. For the last 1 or 2 days, he has been declining food and also complained of some chest pain about 2 days ago, and at the same time, he was noted to have more shortness of breath and his pulse ox went down as well, but that came up to normal with oxygen administration. This morning, he was not eating at all and looked very lethargic from that point. The daughter was called and she advised the patient should be transferred to [place] [facility]. At [place] [facility], he was hemodynamically stable. Apparent test including chest x-ray, CT scan, blood test and EKG came out to be fairly unremarkable, but he was noted to have a very high level of troponin of more than 3. From that point, the ER physician did talk to the chronometer repairer elementary education tutor at [facility] and advised to be transferred to [facility] for continuation of care. The patient can communicate in a very limited way. He denies to have any chest pain, shortness of breath, palpitation in the telemetry unit. He does not have any abdominal pain, nausea or vomiting. He did not have any cough or phlegm or shortness of breath, and he does have dysarthria which has been worsening, but did not have any numbness or tingling involving any of the extremities. . Physical Exam (per Admitting): GENERAL: On examination in the telemetry unit, he is not having any acute distress. VITAL SIGNS: Temperature 37.2, pulse was 87, blood pressure 163/99, saturations 90% on 2 liters nasal cannula. HEENT: Unremarkable. NECK: Supple. No JVD, no bruit. CHEST: Clear to auscultate bilaterally. HEART: S1, S2 regular with a 2/6 systolic murmur over precordium. ABDOMEN: Soft, benign, nontender, no organomegaly. Bowel sounds present. EXTREMITIES: No edema. MUSCULOSKELETAL: No acute arthritis. CENTRAL NERVOUS SYSTEM: He was alert and awake and dysarthric, poor in communication. He does have weakness in all 4 limbs, more on the right side than the left. Difficult to get any sensory impairment. . Hospital Course PULMONARY EDEMA / ACUTE ON CHRONIC LEFT VENTRICULAR DIASTOLIC HEART FAILURE Chest x-ray at [place] [facility] 01/18 and here on 01/19 demonstrated pulmonary edema. Records indicate history of systolic and diastolic CHF. Echo here 01/19/17 showed normal LVEF of 55%. Probable acute on chronic left ventricular diastolic heart failure. IV furosemide administered with improvement of symptoms, exam, chest x-ray, and oxygenation. Renal function volume sensitive. Discharge on furosemide 20 mg MWF. Follow symptoms, exam, weights, O2 sats, renal function. ACUTE HYPOXIC RESPIRATORY FAILURE Diagnosed with pneumonia about 1 week prior to admission. Started on oxygen a few days prior to admission. Worsening oxygenation 01/19/17. Treating for pulmonary edema and possible pneumonia as discussed below. Oxygenation improved; weaned from Oxymask to NC. Saturations remained stable on nasal cannula. No BiPAP or endotracheal intubation per discussion with patient and daughter. By discharge: sats in 90's on RA while awake, down to 80's while sleeping. Continue nocturnal O2 2 LPM. ELEVATED TROPONIN / POSSIBLE CAD Seen in consultation by Cardiology. No chest pain. Serum troponins 3.110 --> --> 2.190. Total CPK and CPK-MB normal. No dramatic EKG changes. No wall motion abnormalities on echocardiogram. No strong evidence for PE. [place] that troponin elevation not due to acute MD, rather probably nonspecific elevation secondary to CHF and/or pneumonia. Treat for possible underlying ischemic heart disease with aspirin, metoprolol, nitrates, statin. POSSIBLE PNEUMONIA / POSSIBLE ASPIRATION Diagnosed with pneumonia 1 week ago and treated with levofloxacin. Chest x-rays past few days show pulmonary edema, no obvious infiltrates. Afebrile. WBC 11,290 --> 5900. Procalcitonin normal, so sepsis unlikely. Nasal MRSA screen negative, so MRSA pneumonia unlikely. Treating with broad-spectrum antibiotic therapy with levofloxacin and piperacillin/tazobactam x 7 days. LOG DECK TENDER performed bedside swallowing evaluation; no overt aspiration, but aspiration precautions recommended. ELEVATED D-DIMER At risk for thromboembolic disease due to inactivity/bed rest. Venous duplex lower extremities negative for DVT. No RV strain on echo. Serum creatinine 1.5 - 2.0 Prudent to avoid CTA due to risk of contrast nephropathy. VQ scan would most likely be nondiagnostic. Receiving SQ unfractionated heparin with therapeutic PTT. Most likely that hypoxia secondary to pulmonary edema +/- pneumonia, not pulmonary embolism. HYPERTENSION Metoprolol dose increased to 50 mg BID. Pulse rate low at times, so diltiazem dose decreased to 180 mg BID. Continue clonidine. CKD Stage uncertain. Serum creatinine 1.6 @ [place] [facility] day prior to admission. Creatinine 01/26 = 1.6. Hold diuretics. Follow. DM TYPE 2 History of diabetes, diet controlled. Well-controlled. Hgb A1C = 5.3. FBS 100. Follow. CEREBROVASCULAR DISEASE Neuro status at baseline. CT performed 01/18/17 at [facility] showed encephalomalacia, no acute events. Continue aspirin. SEIZURE DISORDER Phenytoin level 10 on 01/19. Level 9.3 on 01/24. Received extra dose and hs dose increased. Level 13 on 01/25. Discharge on phenytoin 100 mg BID + 150 mg HS. Recheck phenytoin level in about 1 week, then periodically as clinically indicated. Continue levetiracetam and zonisamide. CHRONIC PAIN Continue fentanyl patch + Percocet PRN. ANEMIA Hgb 11.0 --> 9.8 --> --> 10.6. No overt GI bleeding. Fe 34, transferrin sat 13%, ferritin 97, B12 428, folate 10. Hemoccult negative. Follow. VTE PROPHYLAXIS SQ heparin. RESUSCITATION STATUS DNR DISPOSITION Arrangements being made for return to [facility]. . Total time spent on discharge = 50 min. This includes examination of the patient, discharge planning, medication reconciliation, and communication with other providers. . Discharge Instructions Date of Service Jan 27, 2017. Admission Reason for Admission: elevated troponin . Discharge Discharge Diagnosis / Problem: acute on chronic left ventricular diastolic heart failure Discharge Goals Goal(s): Decrease discomfort, Improve function, Increase independence, Improve disease control Activity Recommendations Activity Level: Assistance Required . Additional Information Patient informed of condition: Yes Advance Directives: Yes DNR: Yes Level of Care: Skilled Communicable Disease: No Prognosis: Improving Oxygen at (LPM): nocturnal O2 2 LPM by nasal cannula; PRN during day for O2 sat < 90 [place] Catheter: No Instructions / Follow-Up Instructions / Follow-Up Thank you for receiving this patient in transfer. Please call if you have any questions. Ministerio Sarabia . Current Hospital Diet Patient's current hospital diet: Diabetes Type 2 Diet, AHA Diet (Heart Healthy) Discharge Diet Recommended Diet: AHA Diet (Heart Healthy) Diet Texture: Mechanical Soft (ground) Pending Studies Studies pending at discharge: no Physician Orders On Transfer Special Precautions: aspiration precautions fall precautions skin precautions delirium precautions . Vital Signs: routine . Weigh: daily . Additional Orders: Reposition at least q 2 hrs. Please check basic metabolic profile and phenytoin level in 1 week, then as clinically indicated. Speech Therapy Discharge Instructions * If patient is not at baseline re: communication when he returns to SNF, he could have LOG DECK TENDER services treat him at SNF to improve his ability to communicate in his home environment with his regular caregivers. Continue Regular diet with feeding assistance and basic aspiration precautions. Oral Hygiene: To minimize oral bacteria the patient could be at risk of aspirating it is important to clean all surfaces of mouth with soft toothbrush and toothpaste PRIOR TO oral intake in the morning, after meals, and before going to sleep for the night. . Laboratory Results Hemoglobin A1c Test 01/20/17 05:33 Range/Units Estimated Average Glucose 105 mg/dl Hemoglobin A1c 5.3 4.5-5.6 % Medical Emergencies . Who to Call and When: Medical Emergencies: If at any time you feel your situation is an emergency, please call 911 immediately. . Non-Emergent Contact Non-Emergency issues call your: Primary Care Provider, Hospital Doctor . . "Provider Documentation" section prepared by Ministerio Sarabia. . Core Measure Problem Core Measures: None [place] Drug Monitoring Program Search Results: patient reviewed within database, no issues identified ( chronic pain syndrome appropriately managed) .
[2017-01-27] MEDS ORDERED: POTA10CA28 PO (11:45)
[2017-01-27] MEDS ORDERED: LSX20 PO (11:45)
--- NOTE | 2017-01-27 11:47 | Progress Note ---
Progress Note Date of Service Jan 27, 2017. Progress Note Called daughter to give update on discharge plans. No answer. Message left. .
[2017-01-27 11:56] VITALS: BP 117/78; PULSE 66; TEMP 37; O2SAT 95
[2017-01-27] MEDS ORDERED: DRGTP50 EXT (12:27)
[2017-01-27] MEDS ORDERED: ATV5X PO (12:27)
== END 2017-01-27 13:51 | DRG 291 ==
LOC: C.2T 20:56 → C.2E 01-19 14:34 → EDBEDREQ 01-25 09:55 → ENRESERV 01-25 10:07 → C.4E 01-25 11:04
PROVIDERS: ADMIT Internal Medicine; ATTEND Hospitalist
DX: I13.0 Hypertensive heart and chronic kidney disease with heart failure and stage 1 through stage 4 chronic kidney disease, or unspecified chronic kidney disease (principal); I50.33 Acute on chronic diastolic (congestive) heart failure; J96.01 Acute respiratory failure with hypoxia; J18.9 Pneumonia, unspecified organism; R79.1 Abnormal coagulation profile; R62.7 Adult failure to thrive; I25.10 Atherosclerotic heart disease of native coronary artery without angina pectoris; E11.22 Type 2 diabetes mellitus with diabetic chronic kidney disease; N18.9 Chronic kidney disease, unspecified; I67.9 Cerebrovascular disease, unspecified; I69.322 Dysarthria following cerebral infarction; G40.909 Epilepsy, unspecified, not intractable, without status epilepticus; D64.9 Anemia, unspecified; G47.34 Idiopathic sleep related nonobstructive alveolar hypoventilation; K59.00 Constipation, unspecified; G89.29 Other chronic pain; M54.5 Low back pain; R41.9 Unspecified symptoms and signs involving cognitive functions and awareness; F01.50 Vascular dementia, unspecified severity, without behavioral disturbance, psychotic disturbance, mood disturbance, and anxiety; F41.9 Anxiety disorder, unspecified; F32.9 Major depressive disorder, single episode, unspecified; Z66 Do not resuscitate; Z72.0 Tobacco use; Z74.01 Bed confinement status; Z86.011 Personal history of benign neoplasm of the brain; Z79.82 Long term (current) use of aspirin; Z79.891 Long term (current) use of opiate analgesic; Z79.899 Other long term (current) drug therapy